=== PATIENT | male | born 1995 | race Caucasian/White ===

== ENCOUNTER 2020-01-18 19:51 | Emergency (ER) | payer OTHER ==
[2020-01-18 20:06] VITALS: TEMP 98
[2020-01-18] MEDS ORDERED: DIPH,PERTUS(ACELL)TETVAC-LF 0.5 ML VIAL IM ONE (20:13)
[2020-01-18] MEDS ORDERED: IBUPROFEN 600 MG TAB PO STA (20:13)
[2020-01-18] MEDS ORDERED: LIDOCAINE 1% INJ 10MG/ML (20 ML MDV) SQ ONE (20:13)
--- NOTE | 2020-01-18 20:16 | ED ---
Wound/Laceration HPI - General Chief Complaint: Wound/Laceration Stated Complaint: [facility] Finger Lac Time Seen by Provider: 01/18/20 20:08 Source: patient Mode of arrival: ambulatory Limitations: no limitations - History of Present Illness Initial Comments: 24-year-old male patient presents to the emergency department today for evaluation of laceration to the left palm. Patient states he was cutting chicken and cut his thumb with a sharp knife around 7:00 this evening. States initially the bleeding was significant but he was able to get back controlled. Denies any numbness or tingling to the finger. He is unsure when his last tetanus vaccine was given. Denies any difficulty with range of motion. Denies any other injuries. Patient denies any headache, neck pain, back pain, chest pain, shortness of breath, dizziness, weakness, abdominal pain, nausea, vomiting, or difficulties with bowel movements or urination. - Related Data Allergies Allergy/AdvReac Type Severity Reaction Status Date / Time No Known Allergies Allergy Verified 01/18/20 20:03 Review of Systems ROS Statement: Those systems with pertinent positive or pertinent negative responses have been documented in the HPI. ROS Other: All systems not noted in ROS Statement are negative. Past Medical History Past Medical History: No Reported History History of Any Multi-Drug Resistant Organisms: None Reported Past Surgical History: No Surgical Hx Reported Past Psychological History: No Psychological Hx Reported Smoking Status: Current some day smoker Past Alcohol Use History: Occasional Past Drug Use History: Marijuana General Exam Limitations: no limitations General appearance: alert, in no apparent distress, other (This is a well- developed, well-nourished adult male patient in no acute distress. Vital signs upon presentation are temperature 98.0F, pulse 99, respirations 16, blood pressure 164/90, pulse ox 95% on room air.) Respiratory exam: Present: normal lung sounds bilaterally. Absent: respiratory distress, wheezes, rales, rhonchi, stridor Cardiovascular Exam: Present: regular rate, normal rhythm, normal heart sounds. Absent: systolic murmur, diastolic murmur, rubs, gallop, clicks Extremities exam: Present: full ROM, normal capillary refill, other (There is 3 cm laceration involving the nail to the distal left thumb. The bleeding is controlled. Skin is otherwise pink, warm, dry. Cap refills less than 3 seconds. Radial pulses 2+ and equal bilaterally.). Absent: tenderness, pedal edema, joint swelling, calf tenderness Neurological exam: Present: alert, oriented X3, CN II-XII intact Psychiatric exam: Present: normal affect, normal mood Skin exam: Present: warm, dry, intact, normal color. Absent: rash Course Vital Signs 01/18/20 01/18/20 20:03 22:02 Temperature 98.0 F Pulse Rate 99 69 Respiratory 16 18 Rate Blood Pressure 164/90 129/88 O2 Sat by Pulse 95 96 Oximetry Procedures - Laceration Laceration #1 Consent Obtained: verbal consent Indication: laceration Site: hand (Left thumb) Size (cm): 2 Description: linear (Involved nail) Depth: simple, single layer Anesthetic Used: lidocaine 1% Anesthesia Technique: nerve block Amount (mls): 6 Pre-repair: irrigated extensively Type of Sutures: nylon Size of Sutures: 5-0 Number of Sutures: 3 Technique: simple, interrupted Patient Tolerated Procedure: well, no complications Medical Decision Making - Medical Decision Making 24 year-old male patient presented to the emergency department today for evaluation of laceration. Patient was at work when he cut his finger with a knife. Physical examination revealed a 2 cm laceration through the nail at the distal tip of the left thumb. Bleeding was controlled. We did update patient's tetanus vaccine. Laceration was repaired as documented. He is instructed to follow-up with his primary care physician or employee health services for further evaluation and 1-2 days. He is instructed to return in 7 days to have the stitches removed. We did discuss wound care and signs or symptoms of infection. Return parameters were discussed in detail. He verbalizes unde rstanding and agrees with this plan. Disposition Clinical Impression: Laceration of left thumb with damage to nail Disposition: HOME SELF-CARE Condition: Good Instructions (If sedation given, give patient instructions): Care For Your Stitches (ED), Laceration (ED) Additional Instructions: Keep wound clean and dry. Watch for signs of infection including but not limited fever redness, drainage, and swelling. Sutures removed in 7 days. Follow-up with her very care provider in one to 2 days. Return to the emergency Department with any new, worsening, or concerning symptoms. Is patient prescribed a controlled substance at d/c from ED?: No Referrals: Katiuska Holley MD [Primary Care Provider] - 1-2 days Time of Disposition: 21:44
[2020-01-18 22:04] VITALS: BP 129/88; PULSE 69; RESP 18
== END 2020-01-18 22:04 | disposition home or self-care (01) ==
LOC: EC 19:51
DX: S61.112A Laceration without foreign body of left thumb with damage to nail, initial encounter (principal); F17.200 Nicotine dependence, unspecified, uncomplicated; Z23 Encounter for immunization; W26.0XXA Contact with knife, initial encounter; Y92.69 Other specified industrial and construction area as the place of occurrence of the external cause; Y99.0 Civilian activity done for income or pay
CPT/HCPCS: 90715; 99282; 12001; 90471; J2001

== ENCOUNTER 2020-09-20 22:49 | Emergency (ER) | payer OTHER ==
[2020-09-20] MEDS ORDERED: SODIUM CHLORIDE 0.9% 1,000 ML IV ONE (23:57)
[2020-09-21 00:32] LABS: Basophils % (A) 1 %; Eosinophils % (A) 0 %; HCT 39.5 % (39.0-53.0); HGB 13.2 gm/dL (13.0-17.5); Lymphocytes # (A) 2.3 k/uL (1.0-4.8); Lymphocytes % (A) 31 %; MCH 25.4 pg (25.0-35.0); MCHC 33.5 g/dL (31.0-37.0); MCV 75.6 fL (80.0-100.0); Mean Platelet Volume 7.6; Microcytosis Slight; Monocytes # (A) 0.6 k/uL (0-1.0); Monocytes % (A) 8 %; Neutrophils # (A) 4.3 k/uL (1.3-7.7); Neutrophils % (A) 59 %; Platelet Count 262 k/uL (150-450); RBC 5.22 m/uL (4.30-5.90); WBC 7.2 k/uL (3.8-10.6)
[2020-09-21 00:33] LABS: Glucose,Whole Blood 97 mg/dL (75-99)
[2020-09-21 00:51] LABS: Albumin 3.8 g/dL (3.5-5.0); Calcium 8.7 mg/dL (8.4-10.2); Magnesium 1.7 mg/dL (1.6-2.3); Potassium 3.7 mmol/L (3.5-5.1); Total Bilirubin 0.4 mg/dL (0.2-1.3); Total Protein 7.4 g/dL (6.3-8.2)
[2020-09-21 01:18] LABS: Appearance,Urine Cloudy (Clear); Bacteria,Urine Many /hpf; Bilirubin,Urine Negative (Negative); Blood,Urine Moderate (Negative); Color,Urine Light Yellow; Glucose,Urine (UA) Negative (Negative); Ketones,Urine Negative (Negative); Leukocyte Esterase,Urine Large (Negative); Nitrite,Urine Negative (Negative); Protein,Urine 1+ (Negative); RBC,Urine 27 /hpf (0-5); Specific Gravity,Urine 1.006 (1.001-1.035); Squamous Epithelial Cell,Urine 1 /hpf (0-4); Urobilinogen,Urine <2.0 mg/dL (<2.0); WBC,Urine >182 /hpf (0-5)
[2020-09-21] MEDS ORDERED: cefTRIAXone IN SWFI 1,000 MG/10 ML SYRINGE IVP STA (01:30)
[2020-09-21] MEDS ORDERED: SODIUM CHLORIDE 0.9% 500 ML 500 ML IV ONE (01:33)
[2020-09-21] MEDS ORDERED: BAMLANIVIMAB (EUA) 700 MG, ETESEVIMAB (EUA) 1,400 MG in SODIUM CHLORIDE 0.9% 50 ML IVPB ONE (02:00)
[2020-09-21] MEDS ORDERED: SODIUM CHLORIDE 0.9% 50 ML IVPB ONE (02:00)
--- NOTE | 2020-09-21 02:15 | ED ---
Recheck HPI - General Source: patient Mode of arrival: ambulatory Limitations: no limitations <Zita Drake - Last Filed: 09/21/20 04:13> <Obi Ayala - Last Filed: 09/22/20 22:12> - General Chief Complaint: Recheck/Abnormal Lab/Rx Stated Complaint: clammy, not feeling well Time Seen by Provider: 09/20/20 23:30 - History of Present Illness Initial Comments: 25 year-old male patient presents to the emergency department female patient presents to the emergency department for evaluation of not feeling well. States that he has been feeling run down. Reports "body heaviness". 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 Feels like he might be dehydrated. States he does have a mild dry cough. Has felt chilled and feverish. No documented temperatures. Denies nausea, vomiting, or diarrhea. Denies any urinary symptoms. Denies any chronic medical conditions. Denies any use of medications. Patient denies any recent rash, shortness of breath, chest pain, abdominal pain, numbness, tingling, dizziness, weakness, hematuria, dysuria, urinary urgency, urinary frequency, headache, visual changes, or any other complaints. (Zita Drake) - Related Data Previous Rx's Medication Instructions Recorded Cephalexin [Keflex] 500 mg PO Q6HR #40 cap 09/21/20 Allergies Allergy/AdvReac Type Severity Reaction Status Date / Time No Known Allergies Allergy Verified 09/20/20 23:10 Review of Systems ROS Other: All systems not noted in ROS Statement are negative. <Zita Drake - Last Filed: 09/21/20 04:13> ROS Other: All systems not noted in ROS Statement are negative. <Obi Ayala - Last Filed: 09/22/20 22:12> ROS Statement: Those systems with pertinent positive or pertinent negative responses have been documented in the HPI. Past Medical History Past Medical History: No Reported History History of Any Multi-Drug Resistant Organisms: None Reported Past Surgical History: No Surgical Hx Reported Past Psychological History: No Psychological Hx Reported Smoking Status: Current some day smoker Past Alcohol Use History: None Reported Past Drug Use History: Marijuana <Zita Drake - Last Filed: 09/21/20 04:13> General Exam Limitations: no limitations General appearance: alert, in no apparent distress, other (Physical well- developed, well-nourished adult male patient in no acute distress. Vital signs upon presentation are temperature 98.9F, pulse 97, respirations 18, blood pressure 147/91, pulse ox 96% on room air.) Eye exam: Present: normal appearance, PERRL, EOMI. Absent: scleral icterus, conjunctival injection, periorbital swelling ENT exam: Present: normal exam, normal oropharynx, mucous membranes moist Respiratory exam: Present: normal lung sounds bilaterally. Absent: respiratory distress, wheezes, rales, rhonchi, stridor Cardiovascular Exam: Present: regular rate, normal rhythm, normal heart sounds. Absent: systolic murmur, diastolic murmur, rubs, gallop, clicks GI/Abdominal exam: Present: soft, normal bowel sounds. Absent: distended, tenderness, guarding, rebound, rigid Neurological exam: Present: alert, oriented X3, CN II-XII intact Psychiatric exam: Present: normal affect, normal mood Skin exam: Present: warm, dry, intact, normal color. Absent: rash <Zita Drake M - Last Filed: 09/21/20 04:13> Course <Zita Drake M - Last Filed: 09/21/20 04:13> Vital Signs 09/20/20 09/21/20 09/21/20 23:10 01:46 02:26 Temperature 98.9 F 98.3 F 98.4 F Pulse Rate 97 81 76 Respiratory 18 20 22 Rate Blood Pressure 147/91 113/70 117/74 O2 Sat by Pulse 96 97 95 Oximetry 09/21/20 09/21/20 09/21/20 02:50 04:43 06:03 Temperature 98.4 F 98.4 F Pulse Rate 86 87 84 Respiratory 22 20 22 Rate Blood Pressure 110/74 123/72 120/72 O2 Sat by Pulse 95 94 L 94 L Oximetry - Reevaluation(s) Reevaluation #1: 09/21/20 02:11 Labs came back showed positive COVID-19. Also discussed urine results with him. States he is not sexually active and denies concern for sexually transmitted infections. He states that he has had some unusual bilateral flank pain over the last week or so. Will add CT scan to rule out kidney stone. (Zita Drake) Medical Decision Making - Lab Data Result diagrams: 09/21/20 00:23 09/21/20 00:23 - EKG Data -: EKG Interpreted by Me - Radiology Data Radiology results: report reviewed, image reviewed <Zita Drake - Last Filed: 09/21/20 04:13> - Lab Data Result diagrams: 09/21/20 00:23 09/21/20 00:23 <Obi Ayala - Last Filed: 09/22/20 22:12> - Medical Decision Making 25 year-old male patient presents to the emergency department for evaluation of not feeling well, weakness, and sweats. Physical exam was unremarkable. Neuro exam normal. Vitals unremarkable. Labs reviewed, revealed elevated creatinine. Urinalysis showed elevated red and white cells as well as many bacteria. He did report some bilateral flank pain over the last week, CT was obtained to rule out kidney stone or other etiology. Showed evidence for distended bladder and hydroureteronephrosis. We did perform post void residual which showed around 978ml in the bladder. We will place barker catheter. He also tested positive for COVID. It is possible that cystitis could be due to COVID-19 infection, however with presence of bacteria we will give antibiotics. We did give bamlanivimab infusion. One dose of IV rocephin. He will be discharged to follow up with primary care physician as well as urology. Return parameters are discussed in detail. He verbalizes understanding and agrees with this plan. Case discussed with my attending Dr. Ayala. (Zita Drake) - Lab Data Lab Results 09/21/20 09/21/20 09/21/20 Range/Units 00:23 00:23 00:23 WBC 7.2 (3.8-10.6) k/uL RBC 5.22 (4.30-5.90) m/uL Hgb 13.2 (13.0-17.5) gm/dL Hct 39.5 (39.0-53.0) % MCV 75.6 L (80.0-100.0) fL MCH 25.4 (25.0-35.0) pg MCHC 33.5 (31.0-37.0) g/dL RDW 15.0 (11.5-15.5) % Plt Count 262 (150-450) k/uL MPV 7.6 Neutrophils % 59 % Lymphocytes % 31 % Monocytes % 8 % Eosinophils % 0 % Basophils % 1 % Neutrophils # 4.3 (1.3-7.7) k/uL Lymphocytes # 2.3 (1.0-4.8) k/uL Monocytes # 0.6 (0-1.0) k/uL Eosinophils # 0.0 (0-0.7) k/uL Basophils # 0.0 (0-0.2) k/uL Microcytosis Slight Sodium 138 (137-145) mmol/L Potassium 3.7 (3.5-5.1) mmol/L Chloride 102 (98-107) mmol/L Carbon Dioxide 29 (22-30) mmol/L Anion Gap 7 mmol/L BUN 20 (9-20) mg/dL Creatinine 1.56 H (0.66-1.25) mg/dL Est GFR (CKD-EPI)AfAm 70 (>60 ml/min/1.73 sqM) Est GFR (CKD-EPI)NonAf 60 (>60 ml/min/1.73 sqM) Glucose 95 (74-99) mg/dL POC Glucose (mg/dL) (75-99) mg/dL POC Glu Pool Technician ID Calcium 8.7 (8.4-10.2) mg/dL Magnesium 1.7 (1.6-2.3) mg/dL Total Bilirubin 0.4 (0.2-1.3) mg/dL AST 93 H (17-59) U/L ALT 64 H (4-49) U/L Alkaline Phosphatase 75 (38-126) U/L Total Protein 7.4 (6.3-8.2) g/dL Albumin 3.8 (3.5-5.0) g/dL Urine Color Light Yellow Urine Appearance Cloudy (Clear) Urine pH 6.0 (5.0-8.0) Ur Specific Padroni 1.006 (1.001-1.035) Urine Protein 1+ H (Negative) Urine Glucose (UA) Negative (Negative) Urine Ketones Negative (Negative) Urine Blood Moderate H (Negative) Urine Nitrite Negative (Negative) Urine Bilirubin Negative (Negative) Urine Urobilinogen <2.0 (<2.0) mg/dL Ur Leukocyte Esterase Large H (Negative) Urine RBC 27 H (0-5) /hpf Urine WBC >182 H (0-5) /hpf Urine WBC Clumps Many H (None) /hpf Ur Squamous Epith Cells 1 (0-4) /hpf Urine Bacteria Many H (None) /hpf Coronavirus (PCR) (Not Detectd) 09/21/20 09/21/20 Range/Units 00:23 00:32 WBC (3.8-10.6) k/uL RBC (4.30-5.90) m/uL Hgb (13.0-17.5) gm/dL Hct (39.0-53.0) % MCV (80.0-100.0) fL MCH (25.0-35.0) pg MCHC (31.0-37.0) g/dL RDW (11.5-15.5) % Plt Count (150-450) k/uL MPV Neutrophils % % Lymphocytes % % Monocytes % % Eosinophils % % Basophils % % Neutrophils # (1.3-7.7) k/uL Lymphocytes # (1.0-4.8) k/uL Monocytes # (0-1.0) k/uL Eosinophils # (0-0.7) k/uL Basophils # (0-0.2) k/uL Microcytosis Sodium (137-145) mmol/L Potassium (3.5-5.1) mmol/L Chloride (98-107) mmol/L Carbon Dioxide (22-30) mmol/L Anion Gap mmol/L BUN (9-20) mg/dL Creatinine (0.66-1.25) mg/dL Est GFR (CKD-EPI)AfAm (>60 ml/min/1.73 sqM) Est GFR (CKD-EPI)NonAf (>60 ml/min/1.73 sqM) Glucose (74-99) mg/dL POC Glucose (mg/dL) 97 (75-99) mg/dL POC Glu Pool Technician ID Ortiz, Siria Calcium (8.4-10.2) mg/dL Magnesium (1.6-2.3) mg/dL Total Bilirubin (0.2-1.3) mg/dL AST (17-59) U/L ALT (4-49) U/L Alkaline Phosphatase (38-126) U/L Total Protein (6.3-8.2) g/dL Albumin (3.5-5.0) g/dL Urine Color Urine Appearance (Clear) Urine pH (5.0-8.0) Ur Specific Padroni (1.001-1.035) Urine Protein (Negative) Urine Glucose (UA) (Negative) Urine Ketones (Negative) Urine Blood (Negative) Urine Nitrite (Negative) Urine Bilirubin (Negative) Urine Urobilinogen (<2.0) mg/dL Ur Leukocyte Esterase (Negative) Urine RBC (0-5) /hpf Urine WBC (0-5) /hpf Urine WBC Clumps (None) /hpf Ur Squamous Epith Cells (0-4) /hpf Urine Bacteria (None) /hpf Coronavirus (PCR) Detected A (Not Detectd) - EKG Data EKG Comments: EKG obtained at 2357 shows normal sinus rhythm with a ventricular rate of 88, AK interval 132, QRS duration 102, QT 356, QTc 4:30. No evidence of ST elevation or depression (Zita Drake) - Radiology Data CT abdomen and pelvis without contrast was obtained. Report was reviewed in its entirety. Impression by Dr. Lombardo shows moderate bilateral hydroureteronephrosis to the level of the urinary bladder. Findings are likely secondary to distended urinary bladder. No obstructing lesion identified. (Zita Drake) Disposition Is patient prescribed a controlled substance at d/c from ED?: No Time of Disposition: 04:08 <Zita Drake - Last Filed: 09/21/20 04:13> <Obi Ayala - Last Filed: 09/22/20 22:12> Clinical Impression: Hydronephrosis, COVID-19, UTI (urinary tract infection), Urinary retention Narrative: COVID-19 cystitis (Zita Drake) Disposition: HOME SELF-CARE Condition: Good Instructions (If sedation given, give patient instructions): Coronavirus Disease 2019 (COVID-19), Urinary Retention in Men (ED), Urinary Tract Infection in Men (ED), Hydronephrosis (ED) Additional Instructions: Increase fluids. Follow up with the urologist for further evaluation as soon as possible. Complete antibiotic prescription in full. Return for any new, worsening, or concerning symptoms. Prescriptions: Cephalexin [Keflex] 500 mg PO Q6HR #40 cap Referrals: Leydi,Katiuska, MD [Primary Care Provider] - 1-2 days Marcus Milian MD [STAFF PHYSICIAN] - 1-2 days
[2020-09-21 02:28] VITALS: TEMP 98.4
--- NOTE | 2020-09-21 02:49 | CT ---
EXAM: CT Abdomen and Pelvis Without Intravenous Contrast CLINICAL HISTORY: flank pain; UTI; R/o Kidney stone TECHNIQUE: Axial computed tomography images of the abdomen and pelvis without intravenous contrast. CTDI is 42.684 mGy and DLP is 2713 mGy-cm. This CT exam was performed using one or more of the following dose reduction techniques: automated exposure control, adjustment of the mA and/or kV according to patient size, and/or use of iterative reconstruction technique. COMPARISON: No relevant prior studies available. FINDINGS: Lung bases: 3 mm pulmonary nodule within the right lower lobe. ABDOMEN: Liver: Hepatic steatosis. Gallbladder and bile ducts: Gallbladder is contracted. Pancreas: Unremarkable. Spleen: Unremarkable. Adrenals: Unremarkable. Kidneys and ureters: Moderate bilateral hydroureteronephrosis to the level of the urinary bladder. Please are likely secondary to distended urinary bladder. No obstructing lesion identified. Stomach and bowel: Unremarkable. PELVIS: Appendix: Appendix is unremarkable. Bladder: Unremarkable. Reproductive: Unremarkable as visualized. ABDOMEN and PELVIS: Intraperitoneal space: Unremarkable. Bones/joints: No acute fracture. No dislocation. Soft tissues: Moderate sized fat-containing umbilical hernia. Vasculature: Unremarkable. Lymph nodes: Unremarkable. IMPRESSION: Moderate bilateral hydroureteronephrosis to the level of the urinary bladder. Please are likely secondary to distended urinary bladder. No obstructing lesion identified.
[2020-09-21 06:12] VITALS: BP 120/72; PULSE 84; RESP 22
== END 2020-09-21 06:12 | disposition home or self-care (01) ==
LOC: EC 22:49
DX: U07.1 COVID-19 (principal); N13.39 Other hydronephrosis; N39.0 Urinary tract infection, site not specified; R33.9 Retention of urine, unspecified
CPT/HCPCS: 51798; 36415; 93005; 80053; 83735; 85025; 81001; 87086; 87635; 74176; 99284; 96374; 96361 ×3; J0696; Q0245

== ENCOUNTER 2020-09-27 14:29 | Emergency (ER) | payer OTHER ==
[2020-09-27 14:34] VITALS: BP 139/98; PULSE 103; RESP 18; TEMP 98
--- NOTE | 2020-09-27 15:12 | ED ---
Male Urogenital HPI - General Chief complaint: Urogenital Stated complaint: Barker Removal Time Seen by Provider: 09/27/20 14:44 Source: family Mode of arrival: ambulatory Limitations: no limitations - History of Present Illness Initial comments: Allan is a 25-year-old male who presents to the emergency department today via private vehicle requesting that his Barker catheter be removed. Patient was seen and evaluated 6 days ago at which time he has been have COVID-19 as well as a urinary tract infection with urinary retention. Barker catheter was placed at that time. Patient has contacted the urology office for outpatient follow-up in cannot be seen until October 12. Patient states that today he wants his Barker catheter out. Patient states that he did have some hematuria on the first day of the Barker catheter but took his antibiotics his urine has cleared up he's had no discomfort. - Related Data Previous Rx's Medication Instructions Recorded Cephalexin [Keflex] 500 mg PO Q6HR #40 cap 09/21/20 Allergies Allergy/AdvReac Type Severity Reaction Status Date / Time No Known Allergies Allergy Verified 09/27/20 14:34 Review of Systems ROS Statement: Those systems with pertinent positive or pertinent negative responses have been documented in the HPI. ROS Other: All systems not noted in ROS Statement are negative. Past Medical History Past Medical History: No Reported History History of Any Multi-Drug Resistant Organisms: None Reported Past Surgical History: No Surgical Hx Reported Past Psychological History: No Psychological Hx Reported Smoking Status: Current some day smoker Past Alcohol Use History: None Reported Past Drug Use History: Marijuana General Exam - General Exam Comments Initial Comments: Physical Exam GENERAL: Patient is well-developed and well-nourished. Patient is nontoxic and well-hydrated and is in no distress. BMI 39 HENT: Normocephalic, Atraumatic. EYES: PERRL, EOMI PULMONARY: Unlabored respirations. CARDIOVASCULAR: No active bleeding ABDOMEN: Non-distended SKIN: No rashes or bruising : Barker catheter in place draining clear yellow urine NEUROLOGIC: Alert and oriented Normal speech Normal gait MUSCULOSKELETAL: Moving all extremities with no apparent injury PSYCHIATRIC: No SI/HI Limitations: no limitations Course Vital Signs 09/27/20 14:32 Temperature 98.0 F Pulse Rate 103 H Respiratory 18 Rate Blood Pressure 139/98 O2 Sat by Pulse 97 Oximetry Medical Decision Making - Medical Decision Making Patient was seen and evaluated patient requesting that his Barker catheter be removed, states that his urine has cleared up she doesn't have any discomfort doesn't believe he still has urinary tract infection Advised patient we will remove Barker catheter, if he has any retention later in the day he is to return to the ER for replacement of Barker catheter, patient expressed understanding and is agreement with this plan Disposition Clinical Impression: Barker catheter problem Disposition: HOME SELF-CARE Condition: Stable Additional Instructions: If you cannot urinate later today, return to the ER for replacement of your barker catheter Is patient prescribed a controlled substance at d/c from ED?: No Referrals: Katiuska Holley MD [Primary Care Provider] - 1-2 days
== END 2020-09-27 15:29 | disposition home or self-care (01) ==
LOC: EC 14:29
DX: T83.9XXA Unspecified complication of genitourinary prosthetic device, implant and graft, initial encounter (principal); Z46.6 Encounter for fitting and adjustment of urinary device; F17.200 Nicotine dependence, unspecified, uncomplicated
CPT/HCPCS: 99282

== ENCOUNTER 2023-05-14 21:09 | Emergency (ER) | payer BC, OTHER ==
--- NOTE | 2023-05-14 21:51 | ED ---
Dizziness HPI - General Source: EMS Mode of arrival: EMS Limitations: no limitations <Gamal Wilkes - Last Filed: 05/14/23 21:52> - History of Present Illness MD Complaint: lightheadedness, near syncope Onset/Timin -: hour(s) Timing: sudden onset Description: lightheadedness, nausea Improves With: other (Diagnostic down) Worsens With: nothing Associated Symptoms: denies other symptoms <Ovidio Joseph - Last Filed: 05/26/23 06:33> - General Chief Complaint: Syncope Stated Complaint: Near syncope Time Seen by Provider: 05/14/23 21:49 - History of Present Illness Initial Comments: 28-year-old male presenting to the ED with a chief complaint of near syncope. He states that he was in the kitchen today making dinner when he all of a sudden felt as if he was going to pass out. There was some associated nausea with this as well. States that he was able to guide himself to the ground. No injuries at this time. As of now, patient states symptoms are resolved. There was no chest pain or shortness of breath. (Gamal Wilkes) - Related Data Previous Rx's Medication Instructions Recorded Cephalexin [Keflex] 500 mg PO Q6HR #40 cap 09/21/20 Allergies Allergy/AdvReac Type Severity Reaction Status Date / Time No Known Allergies Allergy Verified 05/14/23 21:46 Review of Systems ROS Other: All systems not noted in ROS Statement are negative. <Gamal Wilkes - Last Filed: 05/14/23 21:52> ROS Other: All systems not noted in ROS Statement are negative. Constitutional: Denies: fever, chills Eyes: Denies: vision change Respiratory: Denies: cough, dyspnea Cardiovascular: Reports: syncope (Near syncope). Denies: chest pain, palpitations, edema Gastrointestinal: Reports: nausea. Denies: abdominal pain, vomiting, diarrhea, constipation Genitourinary: Denies: dysuria, hematuria Musculoskeletal: Denies: back pain Skin: Denies: rash Neurological: Denies: headache <Ovidio Joseph - Last Filed: 05/26/23 06:33> ROS Statement: Those systems with pertinent positive or pertinent negative responses have been documented in the HPI. Past Medical History Past Medical History: No Reported History History of Any Multi-Drug Resistant Organisms: None Reported Past Surgical History: No Surgical Hx Reported Past Psychological History: No Psychological Hx Reported Smoking Status: Never smoker Past Alcohol Use History: None Reported Past Drug Use History: Marijuana <Gamal Wilkes - Last Filed: 05/14/23 21:52> General Exam Limitations: no limitations <Gamal Wilkes - Last Filed: 05/14/23 21:52> Limitations: no limitations General appearance: alert, in no apparent distress Head exam: Present: atraumatic, normocephalic Eye exam: Present: normal appearance, PERRL, EOMI. Absent: scleral icterus, conjunctival injection, nystagmus ENT exam: Present: normal oropharynx Neck exam: Present: normal inspection Respiratory exam: Present: normal lung sounds bilaterally. Absent: respiratory distress, wheezes, rales, rhonchi, stridor Cardiovascular Exam: Present: regular rate, normal rhythm, normal heart sounds. Absent: systolic murmur, diastolic murmur, rubs, gallop GI/Abdominal exam: Present: soft. Absent: distended, tenderness, guarding, rebound, rigid, mass Extremities exam: Present: normal inspection, normal capillary refill. Absent: pedal edema, calf tenderness Back exam: Present: normal inspection. Absent: CVA tenderness (R), CVA tenderness (L) Neurological exam: Present: alert Skin exam: Present: warm, dry, intact, normal color. Absent: rash <Ovidio Joseph - Last Filed: 05/26/23 06:33> - General Exam Comments Initial Comments: Visual Physical Exam Vital signs reviewed General: Well-appearing, nontoxic, no acute distress. Head: Normocephalic, atraumatic Eyes: PERRLA, EOMI ENT: Airway patent Chest: Nonlabored breathing Skin: No visual rash, normal skin tone Neuro: Alert and oriented 3 Musculoskeletal: No gross abnormalities (Gamal Wilkes) Course Vital Signs 05/14/23 05/14/23 21:45 23:41 Temperature 98.2 F Pulse Rate 65 61 Respiratory 18 18 Rate Blood Pressure 116/74 118/91 O2 Sat by Pulse 96 100 Oximetry EKG Findings - EKG Results: EKG: interpreted by ERMD, sinus rhythm (Rate 67 bpm), normal axis, normal QRS - Blocks, [place], Hypertrophy, ST Abn: Repolarization changes or abnormalities: nonspecific abnormality, ST segment, and/or T wave <OpalOvidio - Last Filed: 05/26/23 06:33> Medical Decision Making <Gamal Wilkes - Last Filed: 05/14/23 21:52> - Lab Data Result diagrams: 05/14/23 21:53 05/14/23 21:53 <OpalOvidio - Last Filed: 05/26/23 06:33> - Medical Decision Making Quicknote portion performed. Signed Gamal Wilkes PA-C (Gamal Wilkes) The patient had chest x-ray which I interpreted as negative for acute infil trate, pneumothorax, congestive heart failure Was pt. sent in by a medical professional or institution ([facility], [facility], urgent care, hospital, or long term...) When possible be specific @ -[No] Did you speak to anyone other than the patient for history (EMS, parent, family, police, friend...)? What history was obtained from this source @ -[No] Did you review nursing and triage notes (agree or disagree)? Why? @ -[I reviewed and agree with nursing and triage notes] Were old charts reviewed (outside hosp., previous admission, EMS record, old EKG, old radiological studies, urgent care reports/EKG's, long term records)? Report findings @ -[No old charts were reviewed] Differential Diagnosis (chest pain, altered mental status, abdominal pain women, abdominal pain men, vaginal bleeding, weakness, fever, dyspnea, syncope, headache, dizziness, GI bleed, back pain, seizure, CVA, palpatations, mental health, musculoskeletal)? @ -[Differential Syncope: Valvular disease, hypertrophic cardiomyopathy, pulmonary embolism, tamponade, tachycardia, bradycardia, HI, hypovolemia, hemorrhage, dissection, anemia, intracranial hemorrhage, seizure, hypoglycemia, carbon monoxide poisoning, this is not meant to be an all-inclusive list. EKG interpreted by me (3pts min.). @ -[I interpreted As above] X-rays interpreted by me (1pt min.). @ -[I interpreted as above CT interpreted by me (1pt min.). @ -[None done] U/S interpreted by me (1pt. min.). @ -[None done] What testing was considered but not performed or refused? (CT, X-rays, U/S, labs)? Why? @ -[None] What meds were considered but not given or refused? Why? @ -[None] Did you discuss the management of the patient with other professionals (professionals i.e. , PA, [facility], lab, RT, psych nurse, manager social media, sorter upholstery parts, teacher, chief security and safety officer, nurse case management)? Give summary @ -[No] Was smoking cessation discussed for >3mins.? @ -[No] Was critical care preformed (if so, how long)? @ -[No] Were there social determinants of health that impacted care today? How? (Homelessness, low income, unemployed, alcoholism, drug addiction, transportation, low edu. Level, literacy, decrease access to med. care, senior care, rehab)? @ -[No] Was there de-escalation of care discussed even if they declined (Discuss DNR or withdrawal of care, Hospice)? DNR status @ -[No] What co-morbidities impacted this encounter? (DM, HTN, Smoking, COPD, CAD, Cancer, CVA, ARF, Chemo, Hep., AIDS, mental health diagnosis, sleep apnea, morbid obesity)? @ -[None] Was patient admitted / discharged? Hospital course, mention meds given and route, prescriptions, significant lab abnormalities, going to OR and other pertinent info. @ -[Patient is 28-year-old man with near syncopal episode. The physical exam and workup are essentially normal. The patient is feeling well here. We discussed appropriate further care and return parameters Undiagnosed new problem with uncertain prognosis? @ -[No] Drug Therapy requiring intensive monitoring for toxicity (Heparin, Nitro, Insulin, Cardizem)? @ -[No] Were any procedures done? @ -[No] Diagnosis/symptom? @ -[Acute near syncopal episode Acute, or Chronic, or Acute on Chronic? @ -[Acute Uncomplicated (without systemic symptoms) or Complicated (systemic symptoms)? @ -[Uncomplicated Side effects of treatment? @ -[No] Exacerbation, Progression, or Severe Exacerbation? @ -[No] Poses a threat to life or bodily function? How? (Chest pain, USA, HI, pneumonia, PE, COPD, DKA, ARF, appy, cholecystitis, CVA, Diverticulitis, Homicidal, Suicidal, threat to staff... and all critical care pts) @ -[No] (Ovidio Joseph) - Lab Data Lab Results 05/14/23 05/14/23 05/14/23 Range/Units 21:53 21:53 21:53 WBC 10.2 (3.8-10.6) k/uL RBC 5.73 (4.30-5.90) m/uL Hgb 15.7 (13.0-17.5) gm/dL Hct 47.4 (39.0-53.0) % MCV 82.8 (80.0-100.0) fL MCH 27.4 (25.0-35.0) pg MCHC 33.1 (31.0-37.0) g/dL RDW 14.2 (11.5-15.5) % Plt Count 308 (150-450) k/uL MPV 7.8 Neutrophils % 72 % Lymphocytes % 21 % Monocytes % 5 % Eosinophils % 1 % Basophils % 1 % Neutrophils # 7.4 (1.3-7.7) k/uL Lymphocytes # 2.1 (1.0-4.8) k/uL Monocytes # 0.5 (0-1.0) k/uL Eosinophils # 0.1 (0-0.7) k/uL Basophils # 0.1 (0-0.2) k/uL PT 10.9 (10.0-12.5) sec INR 1.0 (<1.2) APTT 28.3 (22.0-30.0) sec Sodium 145 (137-145) mmol/L Potassium 3.8 (3.5-5.1) mmol/L Chloride 106 (98-107) mmol/L Carbon Dioxide 25 (22-30) mmol/L Anion Gap 14 mmol/L BUN 15 (9-20) mg/dL Creatinine 1.42 H (0.66-1.25) mg/dL Est GFR (CKD-EPI)AfAm 77 (>60 ml/min/1.73 sqM) Est GFR (CKD-EPI)NonAf 66 (>60 ml/min/1.73 sqM) Glucose 121 H (74-99) mg/dL Calcium 9.8 (8.4-10.2) mg/dL Total Bilirubin 0.7 (0.2-1.3) mg/dL AST 34 (17-59) U/L ALT 26 (4-49) U/L Alkaline Phosphatase 81 (38-126) U/L Troponin I (0.000-0.034) ng/mL Total Protein 8.1 (6.3-8.2) g/dL Albumin 4.4 (3.5-5.0) g/dL Influenza Type A (PCR) (Not Detectd) Influenza Type B (PCR) (Not Detectd) RSV (PCR) (Not Detectd) SARS-CoV-2 (PCR) (Not Detectd) 05/14/23 05/14/23 Range/Units 21:53 21:53 WBC (3.8-10.6) k/uL RBC (4.30-5.90) m/uL Hgb (13.0-17.5) gm/dL Hct (39.0-53.0) % MCV (80.0-100.0) fL MCH (25.0-35.0) pg MCHC (31.0-37.0) g/dL RDW (11.5-15.5) % Plt Count (150-450) k/uL MPV Neutrophils % % Lymphocytes % % Monocytes % % Eosinophils % % Basophils % % Neutrophils # (1.3-7.7) k/uL Lymphocytes # (1.0-4.8) k/uL Monocytes # (0-1.0) k/uL Eosinophils # (0-0.7) k/uL Basophils # (0-0.2) k/uL PT (10.0-12.5) sec INR (<1.2) APTT (22.0-30.0) sec Sodium (137-145) mmol/L Potassium (3.5-5.1) mmol/L Chloride (98-107) mmol/L Carbon Dioxide (22-30) mmol/L Anion Gap mmol/L BUN (9-20) mg/dL Creatinine (0.66-1.25) mg/dL Est GFR (CKD-EPI)AfAm (>60 ml/min/1.73 sqM) Est GFR (CKD-EPI)NonAf (>60 ml/min/1.73 sqM) Glucose (74-99) mg/dL Calcium (8.4-10.2) mg/dL Total Bilirubin (0.2-1.3) mg/dL AST (17-59) U/L ALT (4-49) U/L Alkaline Phosphatase (38-126) U/L Troponin I <0.012 (0.000-0.034) ng/mL Total Protein (6.3-8.2) g/dL Albumin (3.5-5.0) g/dL Influenza Type A (PCR) Not Detected (Not Detectd) Influenza Type B (PCR) Not Detected (Not Detectd) RSV (PCR) Not Detected (Not Detectd) SARS-CoV-2 (PCR) Not Detected (Not Detectd) Disposition <Gamal Wilkes - Last Filed: 05/14/23 21:52> Is patient prescribed a controlled substance at d/c from ED?: No <Ovidio Joseph - Last Filed: 05/26/23 06:33> Clinical Impression: Vasovagal near syncope Disposition: HOME SELF-CARE Condition: Good Instructions (If sedation given, give patient instructions): Near Syncope (ED) Referrals: Katiuska Holley MD [Primary Care Provider] - 1-2 days
[2023-05-14 22:00] LABS: Basophils # (A) 0.1 k/uL (0-0.2); Basophils % (A) 1 %; Eosinophils # (A) 0.1 k/uL (0-0.7); Eosinophils % (A) 1 %; HCT 47.4 % (39.0-53.0); HGB 15.7 gm/dL (13.0-17.5); Lymphocytes # (A) 2.1 k/uL (1.0-4.8); Lymphocytes % (A) 21 %; MCH 27.4 pg (25.0-35.0); MCHC 33.1 g/dL (31.0-37.0); MCV 82.8 fL (80.0-100.0); Mean Platelet Volume 7.8; Monocytes # (A) 0.5 k/uL (0-1.0); Monocytes % (A) 5 %; Neutrophils # (A) 7.4 k/uL (1.3-7.7); Neutrophils % (A) 72 %; Platelet Count 308 k/uL (150-450); RBC 5.73 m/uL (4.30-5.90); RDW 14.2 % (11.5-15.5); WBC 10.2 k/uL (3.8-10.6)
[2023-05-14 22:02] VITALS: RESP 18; TEMP 98.2
[2023-05-14 22:11] LABS: Partial Thromboplastin Time 28.3 sec (22.0-30.0); Prothrombin Time 10.9 sec (10.0-12.5)
[2023-05-14 22:17] LABS: ALT 26 U/L (4-49); AST 34 U/L (17-59); African American GFR (CKD) 77 (>60 ml/min/1.73 sqM); Albumin 4.4 g/dL (3.5-5.0); Alkaline Phosphatase 81 U/L (38-126); Anion Gap 14 mmol/L; Blood Urea Nitrogen 15 mg/dL (9-20); Calcium 9.8 mg/dL (8.4-10.2); Carbon Dioxide 25 mmol/L (22-30); Chloride 106 mmol/L (98-107); Glucose 121 mg/dL (74-99); Non-African American GFR(CKD) 66 (>60 ml/min/1.73 sqM); Potassium 3.8 mmol/L (3.5-5.1); Sodium 145 mmol/L (137-145); Total Bilirubin 0.7 mg/dL (0.2-1.3); Total Protein 8.1 g/dL (6.3-8.2)
--- NOTE | 2023-05-14 22:26 | XR ---
EXAM: XR Chest, 2 Views CLINICAL HISTORY: ITS.REASON XR Reason: syncope TECHNIQUE: Frontal and lateral views of the chest. COMPARISON: No relevant prior studies available. FINDINGS: Lungs: Unremarkable. No consolidation. Pleural space: Unremarkable. No pneumothorax. Heart: Unremarkable. No cardiomegaly. Mediastinum: Unremarkable. Normal mediastinal contour. Bones/joints: Unremarkable. No acute fracture. IMPRESSION: Normal chest x-rays.
[2023-05-15 00:12] VITALS: BP 118/91; PULSE 61
== END 2023-05-15 00:25 | disposition home or self-care (01) ==
LOC: EC 21:09
DX: R55 Syncope and collapse (principal); F12.90 Cannabis use, unspecified, uncomplicated; Z20.822 Contact with and (suspected) exposure to COVID-19
CPT/HCPCS: 36415; 71046; 80053; 84484; 85025; 85610; 85730; 87636; 93005; 99285

== ENCOUNTER 2023-06-04 12:50 | Inpatient (IN) | payer BC ==
--- NOTE | 2023-06-04 13:41 | ED ---
General Adult HPI - General Chief complaint: Abdominal Pain Stated complaint: abd pain, Time Seen by Provider: 06/04/23 13:30 Source: patient Mode of arrival: ambulatory Limitations: no limitations - History of Present Illness Initial comments: Dictation was produced using Earnest dictation software. please excuse any grammatical, word or spelling errors. Chief Complaint: 28-year-old male presents to the emergency department with fever and abdominal pain History of Present Illness: Patient is a 28-year-old male he has no known comorbidities he does not follow-up with a primary care doctor. States that he has months of this umbilical hernia. Over the last 3 days she has had worsening pain in his abdomen. States that his hernia at his umbilical site is painful. He does complain of fevers. States that his pain really was worse today prompti ng him to come to the ER. Patient having normal bowel movements. He does complain of fever. The ROS documented in this emergency department record has been reviewed and confirmed by me. Those systems with pertinent positive or negative responses have been documented in the HPI. All other systems are other negative and/or noncontributory. - Related Data Home Medications Medication Instructions Recorded Confirmed No Known Home Medications 06/04/23 06/04/23 Allergies Allergy/AdvReac Type Severity Reaction Status Date / Time No Known Allergies Allergy Verified 06/04/23 15:29 Review of Systems ROS Statement: Those systems with pertinent positive or pertinent negative responses have been documented in the HPI. ROS Other: All systems not noted in ROS Statement are negative. Past Medical History Past Medical History: No Reported History History of Any Multi-Drug Resistant Organisms: None Reported Past Surgical History: No Surgical Hx Reported Past Psychological History: No Psychological Hx Reported Smoking Status: Never smoker Past Alcohol Use History: None Reported Past Drug Use History: Marijuana General Exam - General Exam Comments Initial Comments: PHYSICAL EXAM: General Impression: Alert and oriented x3, not in acute distress HEENT: Normocephalic atraumatic, extra-ocular movements intact, pupils equal and reactive to light bilaterally, mucous membranes moist. Cardiovascular: Heart regular rate and rhythm Chest: Able to complete full sentences, no retractions, no tachypnea Abdomen: abdomen soft, tenderness to the umbilical area, there does appear to be an incarcerated umbilical hernia slight redness to the overlying skin, non- distended, no organomegaly Musculoskeletal: Pulses present and equal in all extremities, no peripheral edema Motor: no focal deficits noted Neurological: CN II-XII grossly intact, no focal motor or sensory deficits noted Skin: Intact with no visualized rashes Psych: Normal affect and mood Limitations: no limitations Course Vital Signs 06/04/23 13:25 Temperature 100.7 F H Pulse Rate 107 H Respiratory 20 Rate Blood Pressure 134/75 O2 Sat by Pulse 94 L Oximetry Procedures - Sepsis Sepsis Focused Exam #1 Time Sepsis Criteria Met: : Sepsis Focused Exam Date: 06/04/23 Sepsis Focused Exam Time: Sepsis Focused Exam Complete: Yes Vital Signs & RN Notes Reviewed: Yes Capillary Refill: < 2 Seconds: Fingers, Toes Peripheral Pulses: Normal: Radial (R), Radial (L), Posterior Tibialis (R), Posterior Tibialis (L), Dorsalis Pedis (R), Dorsalis Pedis (L) Skin Color: Normal for Patient Respiratory Exam: normal lung sounds Cardiovascular Exam: tachycardia Medical Decision Making - Medical Decision Making Was pt. sent in by a medical professional or institution (Dr. PA, [facility], urgent care, hospital, or skilled nursing...) When possible be specific @ -No Did you speak to anyone other than the patient for history (EMS, parent, family, police, friend...)? What history was obtained from this source @ -No Did you review nursing and triage notes (agree or disagree)? Why? @ -I reviewed and agree with nursing and triage notes Were old charts reviewed (outside hosp., previous admission, EMS record, old EKG, old radiological studies, urgent care reports/EKG's, skilled nursing records)? Report findings @ -No old charts were reviewed Differential Diagnosis (chest pain, altered mental status, abdominal pain women, abdominal pain men, vaginal bleeding, musculoskeletal, weakness, fever, dyspnea, syncope, headache, dizziness, GI bleed, back pain, seizure, CVA, palpatations, mental health)? @ -Differential Abdominal Pain Men: Appendicitis, cholecystitis, diverticulosis, ischemic bowel, pancreatitis, hepatitis, UTI, gastroenteritis, AAA, incarcerated hernia, bowel obstruction, constipation, inflammatory bowel, hepatitis, peptic ulcer disease, splenic infarction, perforated viscus, testicular torsion, this is not meant to be an all-inclusive list EKG interpreted by me (3pts min.). @ -None done X-rays interpreted by me (1pt min.). @ -None done CT interpreted by me (1pt min.). @ -CT scan of the abdomen and pelvis shows small bowel obstruction with multiple points of inflammation along with hydroureter and hydronephrosis of unclear etiology. Bladder wall is thickened. U/S interpreted by me (1pt. min.). @ -None done What testing was considered but not performed or refused? (CT, X-rays, U/S, labs)? Why? @ -None What meds were considered but not given or refused? Why? @ -None Did you discuss the management of the patient with other professionals (professionals i.e. Dr., PA, [facility], lab, RT, psych nurse, rn social work, tool design engineer, teacher, corporate responsibility officer, manager case)? Give summary @ -Case discussed with Dr. Aj who reviewed the films and is willing to except patient's care for admission. Case also discussed with urology who will be willing to consult on the patient. Was smoking cessation discussed for >3mins.? @ -No Was critical care preformed (if so, how long)? @ -No Were there social determinants of health that impacted care today? How? (Homelessness, low income, unemployed, alcoholism, drug addiction, transpor tation, low edu. Level, literacy, decrease access to med. care, prison, rehab)? @ -No Was there de-escalation of care discussed even if they declined (Discuss DNR or withdrawal of care, Hospice)? DNR status @ -No What co-morbidities impacted this encounter? (DM, HTN, Smoking, COPD, CAD, Cancer, CVA, ARF, Chemo, Hep., AIDS, mental health diagnosis, sleep apnea, morbid obesity)? @ -None Was patient admitted / discharged? Hospital course, mention meds given and route, prescriptions, significant lab abnormalities, going to OR and other pertinent info. @ -28-year-old male presents to the emergency department with abdominal pain and fever. He has symptoms in his lower abdomen. There is concern of acute appendicitis versus diverticulitis versus incarcerated hernia. Patient is febrile at 100.7. Leukocytosis of 16.5. Rest of labs within acceptable limits. Pending CT abdomen pelvis. CT scan of the abdomen and pelvis read by radiology along with being reviewed by myself showing small bowel obstruction with umbilical hernia. There is also hydroureter and hydronephrosis of unclear etiol ogy. Patient started on antibiotics. Patient will be admitted for further care. Clinical presentation suspicious for sepsis. Undiagnosed new problem with uncertain prognosis? @ -No Drug Therapy requiring intensive monitoring for toxicity (Heparin, Nitro, Insulin, Cardizem)? @ -No Were any procedures done? @ -No Diagnosis/symptom? Acute, or Chronic, or Acute on Chronic? Uncomplicated (without systemic symptoms) or Complicated (systemic symptoms)? @ -A bowel obstruction, complicated by fever and leukocytosis. Side effects of treatment? @ -No Exacerbation, Progression, or Severe Exacerbation? @ -No Poses a threat to life or bodily function? How? (Chest pain, USA, VT, pneumonia, PE, COPD, DKA, ARF, appy, cholecystitis, CVA, Diverticulitis, Homicidal, Suicidal, threat to staff... and all critical care pts) @ -yes - Lab Data Result diagrams: 06/04/23 13:49 06/04/23 13:49 Lab Results 06/04/23 06/04/23 06/04/23 Range/Units 13:49 13:49 13:49 WBC 16.5 H (3.8-10.6) k/uL RBC 5.55 (4.30-5.90) m/uL Hgb 15.0 (13.0-17.5) gm/dL Hct 44.8 (39.0-53.0) % MCV 80.7 (80.0-100.0) fL MCH 26.9 (25.0-35.0) pg MCHC 33.4 (31.0-37.0) g/dL RDW 14.2 (11.5-15.5) % Plt Count 357 (150-450) k/uL MPV 8.3 Neutrophils % 86 % Lymphocytes % 9 % Monocytes % 5 % Eosinophils % 0 % Basophils % 0 % Neutrophils # 14.2 H (1.3-7.7) k/uL Lymphocytes # 1.4 (1.0-4.8) k/uL Monocytes # 0.7 (0-1.0) k/uL Eosinophils # 0.1 (0-0.7) k/uL Basophils # 0.0 (0-0.2) k/uL PT 12.3 (10.0-12.5) sec INR 1.1 (<1.2) APTT 28.3 (22.0-30.0) sec Sodium (137-145) mmol/L Potassium (3.5-5.1) mmol/L Chloride (98-107) mmol/L Carbon Dioxide (22-30) mmol/L Anion Gap mmol/L BUN (9-20) mg/dL Creatinine (0.66-1.25) mg/dL Est GFR (CKD-EPI)AfAm (>60 ml/min/1.73 sqM) Est GFR (CKD-EPI)NonAf (>60 ml/min/1.73 sqM) Glucose (74-99) mg/dL Plasma Lactic Acid Bunny (0.7-2.0) mmol/L Calcium (8.4-10.2) mg/dL Total Bilirubin (0.2-1.3) mg/dL AST (17-59) U/L ALT (4-49) U/L Alkaline Phosphatase (38-126) U/L Total Protein (6.3-8.2) g/dL Albumin (3.5-5.0) g/dL Lipase (23-300) U/L Urine Color Colorless Urine Appearance Clear (Clear) Urine pH 7.0 (5.0-8.0) Ur Specific Harris 1.002 (1.001-1.035) Urine Protein Negative (Negative) Urine Glucose (UA) Negative (Negative) Urine Ketones Negative (Negative) Urine Blood Negative (Negative) Urine Nitrite Negative (Negative) Urine Bilirubin Negative (Negative) Urine Urobilinogen <2.0 (<2.0) mg/dL Ur Leukocyte Esterase Negative (Negative) Influenza Type A (PCR) (Not Detectd) Influenza Type B (PCR) (Not Detectd) RSV (PCR) (Not Detectd) SARS-CoV-2 (PCR) (Not Detectd) 06/04/23 06/04/23 06/04/23 Range/Units 13:49 13:49 15:00 WBC (3.8-10.6) k/uL RBC (4.30-5.90) m/uL Hgb (13.0-17.5) gm/dL Hct (39.0-53.0) % MCV (80.0-100.0) fL MCH (25.0-35.0) pg MCHC (31.0-37.0) g/dL RDW (11.5-15.5) % Plt Count (150-450) k/uL MPV Neutrophils % % Lymphocytes % % Monocytes % % Eosinophils % % Basophils % % Neutrophils # (1.3-7.7) k/uL Lymphocytes # (1.0-4.8) k/uL Monocytes # (0-1.0) k/uL Eosinophils # (0-0.7) k/uL Basophils # (0-0.2) k/uL PT (10.0-12.5) sec INR (<1.2) APTT (22.0-30.0) sec Sodium 141 (137-145) mmol/L Potassium 3.8 (3.5-5.1) mmol/L Chloride 107 (98-107) mmol/L Carbon Dioxide 22 (22-30) mmol/L Anion Gap 12 mmol/L BUN 14 (9-20) mg/dL Creatinine 1.28 H (0.66-1.25) mg/dL Est GFR (CKD-EPI)AfAm 86 (>60 ml/min/1.73 sqM) Est GFR (CKD-EPI)NonAf 75 (>60 ml/min/1.73 sqM) Glucose 108 H (74-99) mg/dL Plasma Lactic Acid Bunny 0.9 (0.7-2.0) mmol/L Calcium 9.4 (8.4-10.2) mg/dL Total Bilirubin 1.4 H (0.2-1.3) mg/dL AST 40 (17-59) U/L ALT 42 (4-49) U/L Alkaline Phosphatase 85 (38-126) U/L Total Protein 7.5 (6.3-8.2) g/dL Albumin 3.9 (3.5-5.0) g/dL Lipase 24 (23-300) U/L Urine Color Urine Appearance (Clear) Urine pH (5.0-8.0) Ur Specific Harris (1.001-1.035) Urine Protein (Negative) Urine Glucose (UA) (Negative) Urine Ketones (Negative) Urine Blood (Negative) Urine Nitrite (Negative) Urine Bilirubin (Negative) Urine Urobilinogen (<2.0) mg/dL Ur Leukocyte Esterase (Negative) Influenza Type A (PCR) Not Detected (Not Detectd) Influenza Type B (PCR) Not Detected (Not Detectd) RSV (PCR) Not Detected (Not Detectd) SARS-CoV-2 (PCR) Detected A (Not Detectd) Disposition Clinical Impression: SBO (small bowel obstruction) Disposition: ADMITTED IP TO THIS [facility] Condition: Serious Referrals: Katiuska Holley MD [Primary Care Provider] - 1-2 days Decision Time: 15:53
[2023-06-04 14:10] LABS: Appearance,Urine Clear (Clear); Bilirubin,Urine Negative (Negative); Blood,Urine Negative (Negative); Color,Urine Colorless; Glucose,Urine (UA) Negative (Negative); Ketones,Urine Negative (Negative); Leukocyte Esterase,Urine Negative (Negative); Nitrite,Urine Negative (Negative); Protein,Urine Negative (Negative); Specific Gravity,Urine 1.002 (1.001-1.035); Urobilinogen,Urine <2.0 mg/dL (<2.0)
[2023-06-04] MEDS: SODIUM CHLORIDE 0.9% 1,000 ML IV STA (14:10)
[2023-06-04] MEDS: ACETAMINOPHEN TAB 500 MG TAB PO STA (14:13)
[2023-06-04 14:23] LABS: Basophils % (A) 0 %; Eosinophils # (A) 0.1 k/uL (0-0.7); Eosinophils % (A) 0 %; HCT 44.8 % (39.0-53.0); Lymphocytes # (A) 1.4 k/uL (1.0-4.8); Lymphocytes % (A) 9 %; MCH 26.9 pg (25.0-35.0); MCHC 33.4 g/dL (31.0-37.0); MCV 80.7 fL (80.0-100.0); Mean Platelet Volume 8.3; Monocytes # (A) 0.7 k/uL (0-1.0); Monocytes % (A) 5 %; Neutrophils # (A) 14.2 k/uL (1.3-7.7); Neutrophils % (A) 86 %; Platelet Count 357 k/uL (150-450); RBC 5.55 m/uL (4.30-5.90); RDW 14.2 % (11.5-15.5); WBC 16.5 k/uL (3.8-10.6)
[2023-06-04 14:33] LABS: INR 1.1 (<1.2); Partial Thromboplastin Time 28.3 sec (22.0-30.0); Prothrombin Time 12.3 sec (10.0-12.5)
[2023-06-04 14:40] LABS: ALT 42 U/L (4-49); AST 40 U/L (17-59); African American GFR (CKD) 86 (>60 ml/min/1.73 sqM); Albumin 3.9 g/dL (3.5-5.0); Alkaline Phosphatase 85 U/L (38-126); Anion Gap 12 mmol/L; Blood Urea Nitrogen 14 mg/dL (9-20); Calcium 9.4 mg/dL (8.4-10.2); Carbon Dioxide 22 mmol/L (22-30); Chloride 107 mmol/L (98-107); Glucose 108 mg/dL (74-99); Lipase 24 U/L (23-300); Non-African American GFR(CKD) 75 (>60 ml/min/1.73 sqM); Potassium 3.8 mmol/L (3.5-5.1); Sodium 141 mmol/L (137-145); Total Bilirubin 1.4 mg/dL (0.2-1.3); Total Protein 7.5 g/dL (6.3-8.2)
--- NOTE | 2023-06-04 15:24 | CT ---
EXAMINATION TYPE: CT abdomen pelvis w con DATE OF EXAM: 06/04/2023 COMPARISON: 09/21/2021 INDICATION: lower abd pain DLP: 3387 mGycm, Automated exposure control for dose reduction was used. CONTRAST: 100 mL of Isovue 300. Study performed without Oral Contrast TECHNIQUE: Axial images were obtained from above the diaphragm to the pubic rami in the axial plane a t 5 mm thick sections. Reconstructed images are reviewed on the computer in the coronal plane. FINDINGS: Limited CT sections are obtained the lung bases. The lung bases are clear. CT ABDOMEN: Liver: Normal Spleen: Normal Pancreas: Normal Adrenal glands: The adrenal glands are normal. Gallbladder: Normal Kidneys: No masses are evident. There is prominent hydronephrosis bilateral kidneys. Hydroureters are present extending to the urinary bladder. No obstructing etiology is identified. Aorta: Normal Inferior vena cava: Normal. CT PELVIS: There is a large anterior abdominal wall hernia containing loops of bowel. The exiting loo ps appear to be decompressed. Loops of bowel extending towards this area. The dilator. This may be th e source of the parent small bowel obstruction. There are multiple dilated fluid-filled loops of bowel. Distal small bowel loops appear decompressed. Colon is decompressed. Appendix: Normal as visualized. Urinary bladder: Diffuse wall thickening still urinary bladder. Genitourinary structures: Prostate is normal Osseous structures: No suspicious lytic or sclerotic lesions. Report was called to the emergency room physician by Dr. Hutchins by telephone at the time of interpre tation. IMPRESSION: 1. Small bowel obstruction from loops of bowel within the anterior abdominal wall hernia. 2. Prominent hydronephrosis present bilaterally with hydroureter and obstructing etiology however is not identified. This was present previously and appears increased over the interval. 3. Diffusely thickened urinary bladder wall
[2023-06-04] MEDS ORDERED: NALOXONE 0.4 MG/ML 1 ML VIAL IV PRN (15:49)
[2023-06-04] MEDS: MORPHINE SULFATE 4 MG/ML SYRINGE IV PRN (16:01)
[2023-06-04] MEDS: PIPERACILLIN-TAZOBACTAM 3.375 GM in SODIUM CHLORIDE 0.9% 100 ML IVPB SCH (16:03)
[2023-06-04] MEDS: SODIUM CHLORIDE 0.9% 2,400 ML IV STA (16:12)
--- NOTE | 2023-06-04 17:29 | P.GSHP ---
History of Present Illness H&P Date: 06/04/23 Chief Complaint: Abdominal pain 28-year-old male presents to the ER complaining of abdominal pain. Symptoms began in the last 3 days. More discomfort at his umbilical hernia site. He has known about this hernia for several years but it is enlarging. Patient febrile. White blood cell count elevated. He underwent CAT scan abdomen pelvis that was reviewed with radiology this afternoon. The patient has a loop of transverse colon in the hernia that appears nonobstructive. There is significant inflammatory changes in the left lower abdomen. On careful review there are 2 small foci of air adjacent to the sigmoid colon likely on the basis of microperforation from diverticulitis. There is significant inflammation involving the small bowel loops anterior to the sigmoid colon in that area as well. There appears to be proximal small bowel dilation and ileus or partial obstruction at that site is suspected. Patient's stomach is quite distended. Patient also has chronic bilateral hydronephrosis and bladder wall thickening. Apparently he was told a few years ago after a CAT scan performed in 2020 that he needed to follow-up with urology and never did so. Creatinine today 1.28. Patient with some decreased bowel activity. He has been nauseated. No vomiti ng. No abdominal surgeries. Patient found to be COVID-positive today. - Review of Systems Comment: The patient denies any acute changes in vision or hearing, no dysphagia or odynophagia, no chest pain or shortness of breath, no dysuria or hematuria, no headache, no runny nose, no rectal bleeding or melena, no unexplained weight loss Past Medical History Past Medical History: No Reported History History of Any Multi-Drug Resistant Organisms: None Reported Past Surgical History: No Surgical Hx Reported Past Psychological History: No Psychological Hx Reported Smoking Status: Never smoker Past Alcohol Use History: None Reported Past Drug Use History: Marijuana Medications and Allergies Home Medications Medication Instructions Recorded Confirmed Type No Known Home Medications 06/04/23 06/04/23 History Allergies Allergy/AdvReac Type Severity Reaction Status Date / Time No Known Allergies Allergy Verified 06/04/23 15:29 Surgical - Exam Vital Signs Temp Pulse Resp BP Pulse Ox 100.7 F H 107 H 20 134/75 94 L 06/04/23 13:25 06/04/23 13:25 06/04/23 13:25 06/04/23 13:25 06/04/23 13:25 Physical exam: General: Well-developed, well-nourished HEENT: Normocephalic, sclerae nonicteric Abdomen: Obese male with large pannus, partially reducible umbilical hernia, umbilical skin slightly ischemic because of the large size of this hernia, left lower quadrant tenderness greater than right Extremities: No edema Neuro: Alert and oriented Results - Labs 06/04/23 13:49 06/04/23 13:49 Abnormal Lab Results - Last 24 Hours (Table) 06/04/23 06/04/23 06/04/23 Range/Units 13:49 13:49 15:00 WBC 16.5 H (3.8-10.6) k/uL Neutrophils # 14.2 H (1.3-7.7) k/uL Creatinine 1.28 H (0.66-1.25) mg/dL Glucose 108 H (74-99) mg/dL Total Bilirubin 1.4 H (0.2-1.3) mg/dL SARS-CoV-2 (PCR) Detected A (Not Detectd) Diabetes panel 06/04/23 Range/Units 13:49 Sodium 141 (137-145) mmol/L Potassium 3.8 (3.5-5.1) mmol/L Chloride 107 (98-107) mmol/L Carbon Dioxide 22 (22-30) mmol/L BUN 14 (9-20) mg/dL Creatinine 1.28 H (0.66-1.25) mg/dL Glucose 108 H (74-99) mg/dL Calcium 9.4 (8.4-10.2) mg/dL AST 40 (17-59) U/L ALT 42 (4-49) U/L Alkaline Phosphatase 85 (38-126) U/L Total Protein 7.5 (6.3-8.2) g/dL Albumin 3.9 (3.5-5.0) g/dL Calcium panel 06/04/23 Range/Units 13:49 Calcium 9.4 (8.4-10.2) mg/dL Albumin 3.9 (3.5-5.0) g/dL Pituitary panel 06/04/23 Range/Units 13:49 Sodium 141 (137-145) mmol/L Potassium 3.8 (3.5-5.1) mmol/L Chloride 107 (98-107) mmol/L Carbon Dioxide 22 (22-30) mmol/L BUN 14 (9-20) mg/dL Creatinine 1.28 H (0.66-1.25) mg/dL Glucose 108 H (74-99) mg/dL Calcium 9.4 (8.4-10.2) mg/dL Adrenal panel 06/04/23 Range/Units 13:49 Sodium 141 (137-145) mmol/L Potassium 3.8 (3.5-5.1) mmol/L Chloride 107 (98-107) mmol/L Carbon Dioxide 22 (22-30) mmol/L BUN 14 (9-20) mg/dL Creatinine 1.28 H (0.66-1.25) mg/dL Glucose 108 H (74-99) mg/dL Calcium 9.4 (8.4-10.2) mg/dL Total Bilirubin 1.4 H (0.2-1.3) mg/dL AST 40 (17-59) U/L ALT 42 (4-49) U/L Alkaline Phosphatase 85 (38-126) U/L Total Protein 7.5 (6.3-8.2) g/dL Albumin 3.9 (3.5-5.0) g/dL Assessment and Plan (1) Colon perforation Narrative/Plan: 28-year-old male with suspected sigmoid diverticulitis with microperforation. Patient with adjacent inflammatory changes contributing to proximal small bowel dilation and possible obstruction. Discussed options of nasogastric tube placement. If nausea persist or vomiting develops will proceed with NG tube insertion. Begin broad-spectrum antibiotics. Consult infectious disease. Consult urology. Consult hospitalist service. Keep n.p.o. for now. Will follow closely. Current Visit: Yes Status: Acute Code(s): K63.1 - PERFORATION OF INTESTINE (NONTRAUMATIC) SNOMED Code(s): 74688833
[2023-06-04] MEDS: SODIUM CHLORIDE 0.9% 1,000 ML IV SCH (18:18)
[2023-06-04] MEDS: ONDANSETRON 4 MG/2 ML VIAL IVP PRN (23:48)
--- NOTE | 2023-06-05 08:44 | P.GSCN ---
History of Present Illness Consult date: 06/05/23 History of present illness: 28 yo male in the hospital with abdominal pain due to probable diverticulitis. Had a ct scan that showed bilateral hydronephrosis, chronic with a full bladder. For this reason we were asked to see the patient. the patient apparently was aware of this from a ct scan in 2020. He was referred to urology but never followed up. His urine is clear. His cr is 1.28 the patient denies history of urinary infections or hematuria. He does admit to frequent urination as well as incontinence in particular nocturnal continence. He denies having evaluation as a kid. He did have a catheter for "urine retention" back in 2020. He states that they had some difficulty passing the catheter but were able to pass. There is no previous urologic evaluation. He states his urine stream is relatively good. Review of Systems All systems: negative - Constitutional Denies fever, Denies weight loss - EENT Eyes: denies blurred vision Ears, nose, mouth and throat: Denies dysphagia - Cardiovascular Denies chest pain, Denies shortness of breath - Respiratory Denies cough, Denies 7 - Gastrointestinal Reports as per HPI - Genitourinary Denies dysuria, Denies hematuria - Integumentary Denies rash, Denies unusual bruising - Neurological Denies headaches, Denies syncope - Hematologic/Lymphatic Denies easy bleeding, Denies easy bruising Past Medical History Past Medical History: No Reported History History of Any Multi-Drug Resistant Organisms: None Reported Past Surgical History: No Surgical Hx Reported Past Psychological History: No Psychological Hx Reported Smoking Status: Never smoker Past Alcohol Use History: None Reported Past Drug Use History: Marijuana Medications and Allergies Home Medications Medication Instructions Recorded Confirmed Type No Known Home Medications 06/04/23 06/04/23 History Allergies Allergy/AdvReac Type Severity Reaction Status Date / Time No Known Allergies Allergy Verified 06/04/23 15:29 Surgical - Exam Vital Signs Temp Pulse Resp BP Pulse Ox 100.7 F H 107 H 20 134/75 94 L 06/04/23 13:25 06/04/23 13:25 06/04/23 13:25 06/04/23 13:25 06/04/23 13:25 - General well developed, well nourished, no distress, obese - Eyes normal ocular movement, no icteric - ENT no hearing loss, no congestion - Neck no masses, trachea midline - Respiratory normal respiratory effort, clear to auscultation - Abdomen Abdomen: soft, non tender, no guarding, no rigid, no rebound - Integumentary no rash, no abnormal pigmentation - Neurologic no disoriented, no combative - Psychiatric oriented to time, oriented to person, oriented to place, speech is normal, memory intact Results - Labs 06/04/23 13:49 06/04/23 13:49 Abnormal Lab Results - Last 24 Hours (Table) 06/04/23 06/04/23 06/04/23 Range/Units 13:49 13:49 15:00 WBC 16.5 H (3.8-10.6) k/uL Neutrophils # 14.2 H (1.3-7.7) k/uL Creatinine 1.28 H (0.66-1.25) mg/dL Glucose 108 H (74-99) mg/dL Total Bilirubin 1.4 H (0.2-1.3) mg/dL SARS-CoV-2 (PCR) Detected A (Not Detectd) Diabetes panel 06/04/23 Range/Units 13:49 Sodium 141 (137-145) mmol/L Potassium 3.8 (3.5-5.1) mmol/L Chloride 107 (98-107) mmol/L Carbon Dioxide 22 (22-30) mmol/L BUN 14 (9-20) mg/dL Creatinine 1.28 H (0.66-1.25) mg/dL Glucose 108 H (74-99) mg/dL Calcium 9.4 (8.4-10.2) mg/dL AST 40 (17-59) U/L ALT 42 (4-49) U/L Alkaline Phosphatase 85 (38-126) U/L Total Protein 7.5 (6.3-8.2) g/dL Albumin 3.9 (3.5-5.0) g/dL Calcium panel 06/04/23 Range/Units 13:49 Calcium 9.4 (8.4-10.2) mg/dL Albumin 3.9 (3.5-5.0) g/dL Pituitary panel 06/04/23 Range/Units 13:49 Sodium 141 (137-145) mmol/L Potassium 3.8 (3.5-5.1) mmol/L Chloride 107 (98-107) mmol/L Carbon Dioxide 22 (22-30) mmol/L BUN 14 (9-20) mg/dL Creatinine 1.28 H (0.66-1.25) mg/dL Glucose 108 H (74-99) mg/dL Calcium 9.4 (8.4-10.2) mg/dL Adrenal panel 06/04/23 Range/Units 13:49 Sodium 141 (137-145) mmol/L Potassium 3.8 (3.5-5.1) mmol/L Chloride 107 (98-107) mmol/L Carbon Dioxide 22 (22-30) mmol/L BUN 14 (9-20) mg/dL Creatinine 1.28 H (0.66-1.25) mg/dL Glucose 108 H (74-99) mg/dL Calcium 9.4 (8.4-10.2) mg/dL Total Bilirubin 1.4 H (0.2-1.3) mg/dL AST 40 (17-59) U/L ALT 42 (4-49) U/L Alkaline Phosphatase 85 (38-126) U/L Total Protein 7.5 (6.3-8.2) g/dL Albumin 3.9 (3.5-5.0) g/dL - Imaging CT scan - abdomen: report reviewed, image reviewed CT scan - pelvis: report reviewed, image reviewed Assessment and Plan Assessment: Impression: Diverticulitis with abdominal pain Obesity, Bilateral hydronephrosis with probable incomplete bladder emptying r/o lower tract obstruction[ urethral stricture, posterior urethral valves, ngb]. Plan: as an outpatient the patient will need a cysto and possible voiding cystourethrogram. This has been discussed with the patient at length. Time with Patient: Greater than 30
[2023-06-05 11:08] LABS: Basophils # (A) 0.02 X 10*3/uL (0.00-0.10); Basophils % (A) 0.1 %; Eosinophils # (A) 0 X 10*3/uL (0.04-0.35); Eosinophils % (A) 0 %; HCT 45.6 % (39.6-50.0); HGB 14.5 g/dL (13.0-17.0); Lymphocytes # (A) 1.44 X 10*3/uL (0.90-5.00); Lymphocytes % (A) 10.4 %; MCH 27.1 pg (27.0-32.0); MCHC 31.8 g/dL (32.0-37.0); MCV 85.1 FL (80.0-97.0); Mean Platelet Volume 10.8 FL (9.5-12.2); Monocytes # (A) 0.97 X 10*3/uL (0.20-1.00); NRBC Per 100 WBC 0 X 10*3/uL (0.00-0.01); Neutrophils # (A) 11.37 X 10*3/uL (1.80-7.70); Neutrophils % (A) 82.2 %; Platelet Count 392 X 10*3/uL (140-440); RBC 5.36 X 10*6/uL (4.40-5.60); RDW 15.3 % (11.5-14.5); WBC 13.84 X 10*3/uL (4.50-10.00)
[2023-06-05 11:48] LABS: Blood Urea Nitrogen 14.1 mg/dL (9.0-27.0); Calcium 10.1 mg/dL (8.7-10.3); Carbon Dioxide 24.5 mmol/L (21.6-31.8); Chloride 119 mmol/L (96-109); Glucose 102 mg/dL (70-110); Potassium 4.4 mmol/L (3.5-5.5); Sodium 158 mmol/L (135-145)
--- NOTE | 2023-06-05 14:58 | P.CONS ---
History of Present Illness - Reason for Consult Consult date: 06/05/23 Medical management, diverticulitis - History of Present Illness This is a 28-year-old male who presented to the emergency department with fevers and abdominal pain. Patient reports that the pain had been progressively be coming more worse over the last few days and he does have a noted umbilical hernia history and the site was painful and patient had associated fevers. Patient with no significant past medical history and reports has not followed up with a primary care provider in years although Dr. Holley was his last primary care provider. Patient reports he does use marijuana daily including vaping and denies smoking and denies alcohol use. Patient underwent an abdominal CT that was noted to have some inflammatory changes that are also adjacent to the sigmoid colon in the left lower quadrant with a couple of small loculated tiny amount of free air that may be present in that region with acute diverticulitis with small perforation that could be considered. Also noted to have a small bowel obstruction from loops or bowel within the anterior abdominal wall hernia with prominent hydronephrosis present bilaterally with hydroureter and obstructing etiology however not identified of note this was present previously and appears increased from previous imaging and there is a diffusely thickened urinary bladder wall. Patient was seen and evaluated briefly by urology and is having no difficulties with urination and reports this is chronic since 2020 and has also been instructed to follow-up outpatient for cystoscopy. Patient was started on Antibiotics in the form of Zosyn and pain management with IV hydration admitted under surgery for diverticulitis. Patient is currently n.p.o. and infectious diseases also consulted. Labs revealed a white count of 16.5, hemoglobin 15.0, sodium was 141 with a potassium of 3.8, creatinine mildly elevated at 1.28, total bili is 1.4, urinalysis was negative, patient is positive for COVID. REVIEW OF SYSTEMS: CONSTITUTIONAL: No fever, no malaise, no fatigue. HEENT: No recent visual problems or hearing problems. Denied any sore throat. CARDIOVASCULAR: No chest pain, orthopnea, PND, no palpitations, no syncope. PULMONARY: No shortness of breath, no cough, no hemoptysis. GASTROINTESTINAL: No diarrhea, no nausea, no vomiting, reports lower abdominal pain. NEUROLOGICAL: No headaches, no weakness, no numbness. HEMATOLOGICAL: Denies any bleeding or petechiae. GENITOURINARY: Denies any burning micturition, frequency, or urgency. MUSCULOSKELETAL/RHEUMATOLOGICAL: Denies any joint pain, swelling, or any muscle pain. ENDOCRINE: Denies any polyuria or polydipsia. The rest of the 14-point review of systems is negative. PHYSICAL EXAMINATION: GENERAL: The patient is alert and oriented x3, not in any acute distress. Well d eveloped, well nourished. Morbidly obese HEENT: Pupils are round and equally reacting to light. EOMI. No scleral icterus. No conjunctival pallor. Normocephalic, atraumatic. No pharyngeal erythema. No thyromegaly. CARDIOVASCULAR: S1 and S2 present. No murmurs, rubs, or gallops. PULMONARY: Chest is clear to auscultation, no wheezing or crackles. ABDOMEN: Soft, obese nontender, nondistended, normoactive bowel sounds. No palpable organomegaly. MUSCULOSKELETAL: No joint swelling or deformity. EXTREMITIES: No cyanosis, clubbing, or pedal edema. NEUROLOGICAL: Gross neurological examination did not reveal any focal deficits. SKIN: No rashes. Assessment: Abdominal pain with fevers, secondary to acute diverticulitis as noted on CT with microperforation and possible bowel obstruction Morbid obesity with a body mass index of 46.1 Bilateral hydronephrosis as noted on CT, evaluated by urology recommending outpatient cystoscopy Acute COVID-19 infection Leukocytosis secondary to assessment #1 Daily marijuana use including vaping Noncompliance to medical care, has not been seen by a primary care provider in years DVT prophylaxis GI prophylaxis Full code Plan: Patient was started on antibiotics and admitted to general surgery with infectious disease on consulted for acute diverticulitis with microperforation and possible bowel obstruction Patient was seen and evaluated by urology with concerns of bilateral hydronephrosis noted on CT and patient denies having any pain or difficulty with urination and reports was told of this years ago about stricture although having no difficulties. Urology recommending outpatient follow-up with cystoscopy Continue n.p.o. for now per surgery recommendations Sodium was elevated at 158 on this morning's labs and unsure if this is correct and appears to be an error, patient was continued on normal saline at 130 mL/h and will hold and repeat stat labs as previous sodium level was 141. Kidney functions appear elevated although unsure of baseline as patient has been extremely noncompliant to any type of follow-up. Patient reports he has not seen a doctor in years We will continue to follow with general surgery and make further recommenda tions. Thank you kindly for this consultation The impression and plan of care has been dictated by Jayashree Leyva, Nurse Practitioner as directed. Dr. Shaneka MD I have performed a history and examination and MDM of this patient, discussed the same with the dictator, and agree with the dictator's assessment and plan as written ,documented as a scribe. Based on total visit time, I have performed more than 50% of the visit. Past Medical History Past Medical History: No Reported History History of Any Multi-Drug Resistant Organisms: None Reported Past Surgical History: No Surgical Hx Reported Past Psychological History: No Psychological Hx Reported Smoking Status: Never smoker Past Alcohol Use History: None Reported Past Drug Use History: Marijuana Medications and Allergies Home Medications Medication Instructions Recorded Confirmed Type No Known Home Medications 06/04/23 06/04/23 History Allergies Allergy/AdvReac Type Severity Reaction Status Date / Time No Known Allergies Allergy Verified 06/04/23 15:29 Physical Exam Vitals: Vital Signs Temp Pulse Pulse Resp BP BP BP 06/05/23 07:02 98.3 F 77 20 114/78 06/05/23 02:00 99.7 F H 92 16 123/77 06/04/23 20:04 99.5 F 84 18 129/72 06/04/23 20:00 99.7 F H 88 17 06/04/23 16:17 52 L 18 149/79 06/04/23 15:55 99.5 F 80 18 112/71 06/04/23 13:25 100.7 F H 107 H 20 134/75 BP Pulse Ox 06/05/23 07:02 97 06/05/23 02:00 95 06/04/23 20:04 95 06/04/23 20:00 121/69 94 L 06/04/23 16:17 99 06/04/23 15:55 96 06/04/23 13:25 94 L Intake and Output 06/04/23 06/05/23 06/05/23 22:59 06:59 14:59 Intake Total 0 Balance 0 Intake: Oral 0 Other: Voiding Method Toilet # Voids 2 Weight 154.221 kg Results CBC & Chem 7: 06/05/23 06:33 06/05/23 06:33 Labs: Abnormal Lab Results - Last 24 Hours (Table) 06/04/23 06/04/23 06/04/23 Range/Units 13:49 13:49 15:00 WBC 16.5 H (3.8-10.6) k/uL Neutrophils # 14.2 H (1.3-7.7) k/uL Creatinine 1.28 H (0.66-1.25) mg/dL Glucose 108 H (74-99) mg/dL Total Bilirubin 1.4 H (0.2-1.3) mg/dL SARS-CoV-2 (PCR) Detected A (Not Detectd)
--- NOTE | 2023-06-05 15:04 | P.PN ---
Subjective Progress Note Date: 06/05/23 CHIEF COMPLAINT: Abdominal pain HISTORY OF PRESENT ILLNESS: Patient is sitting at bedside chair. He reports that his pain has shown improvement. He rates his pain about a 2 out of 10. He did have nausea last night this is better. Patient denies any flatus. Afebrile. WBC is down from 16.5-13.84 Hgb 14.5 platelets 392 sodium is 158 creatinine 1.5 PHYSICAL EXAM: VITAL SIGNS: Reviewed. GENERAL: Well-developed in no acute distress. ABDOMEN: Soft. Obese with large pannus, partially reducible umbilical hernia. tenderness to palpation of left lower quadrant NEUROLOGIC: Alert and oriented. Cranial nerves II through XII grossly intact. ASSESSMENT: 1. Suspected sigmoid diverticulitis with microperforation. Adjacent inflammatory changes contributing to proximal small bowel dilation and possible ileus versus small bowel obstruction 2. Bilateral hydronephrosis with probable incomplete bladder emptying. Patient seen by urology. Plans for outpatient cystoscopy 3. COVID-positive PLAN: -Okay to keep NG tube out -Keep patient n.p.o. -Continue antibiotics -Continue IV fluids. May need to adjust depending on repeat Na level. -Hypernatremia management per medicine service -Continue to monitor patient closely -Continue pain management -GI prophylaxis Pepcid and DVT prophylaxis subcu heparin Physician Revenue Director note has been reviewed by physician. Signing provider agrees with the documented findings, assessment, and plan of care. I have personally seen and examined the patient, reviewed the PROFESSOR OF COMMUNICATION /PAs history, exam and MDM and agree with the assessment and plan as written. Based on total visit time, I have performed more than 50% of the visit. As above: Patient says he feels much better today. Only having mild pain at the umbilical hernia site currently. Labs noted. White blood cell count improved. Appreciate consultants. Continue broad-spectrum antibiotics. Begin clear liquid diet. Repeat abdominal x-rays tomorrow. Tentatively plan repeat CAT scan Thursday. Objective - Vital Signs Vital signs: Vital Signs Temp 97.9 F 06/05/23 13:20 Pulse 77 06/05/23 13:20 Resp 20 06/05/23 13:20 BP 111/76 06/05/23 13:20 Pulse Ox 93 L 06/05/23 13:20 FiO2 Intake & Output 06/04/23 06/05/23 06/05/23 18:59 06:59 18:59 Intake Total 0 Output Total 243 Balance 0 -243 Weight 154.221 kg 154.221 kg Intake: Oral 0 Output: Post Void Residual 243 Other: Voiding Method Toilet # Voids 2 - Labs CBC & Chem 7: 06/05/23 06:33 06/05/23 15:10 Labs: Abnormal Lab Results - Last 24 Hours (Table) 06/04/23 06/05/23 06/05/23 Range/Units 15:00 06:33 06:33 WBC 13.84 H (4.50-10.00) X 10*3/uL MCHC 31.8 L (32.0-37.0) g/dL RDW 15.3 H (11.5-14.5) % Neutrophils # 11.37 H (1.80-7.70) X 10*3/uL Eosinophils # 0 L (0.04-0.35) X 10*3/uL Sodium 158 H (135-145) mmol/L Chloride 119 H (96-109) mmol/L Anion Gap 14.50 H (4.00-12.00) mmol/L BUN/Creatinine Ratio 9.40 L (12.00-20.00) Ratio SARS-CoV-2 (PCR) Detected A (Not Detectd)
[2023-06-05] MEDS: FAMOTIDINE 20 MG/2 ML VIAL IV SCH (15:28)
[2023-06-05 15:49] LABS: African American GFR (CKD) 64 (>60 ml/min/1.73 sqM); Anion Gap 13 mmol/L; Blood Urea Nitrogen 17 mg/dL (9-20); Calcium 10.3 mg/dL (8.4-10.2); Carbon Dioxide 26 mmol/L (22-30); Chloride 125 mmol/L (98-107); Glucose 104 mg/dL (74-99); Non-African American GFR(CKD) 55 (>60 ml/min/1.73 sqM)
[2023-06-05 15:58] LABS: Sodium 164 mmol/L (137-145)
--- NOTE | 2023-06-05 16:03 | P.CONS ---
History of Present Illness - Reason for Consult Consult date: 06/05/23 Diverticulitis with microperforation Requesting physician: Mehul Ghotra - Chief Complaint Abdominal pain x 3 days - History of Present Illness Patient is a 28-year-old male with no significant past medical history presenting to the ER increasing abdominal pain x 3 days patient mention he did have umbilical hernia and has been complaining of pain mostly to the brachial hernia area describing it to be dull aching to sharp moderate intensity without any radiation did have some nausea but no vomiting no diarrhea constipation apparently was complaining of fever with the send the patient was evaluated on presentation to the hospital he did have a temperature of 100.7 F patient was tachycardic but not hypotensive or hypoxic he did have white count of 16.5 with a left shift creatinine was mildly elevated subsequent normalized liver enzymes are normal urine has been negative also tested positive for COVID-19 patient did have abdominal pelvis CT initially for small bowel obstruction prominent hydronephrosis diffusely thickened urinary bladder wall subsequent review did mention diverticulitis with microperforation but no abscess patient was started on Zosyn infectious disease was consulted for further management of antibiotic therapy, patient currently did not have significant respiratory symptoms denies any chest pain shortness of breath or cough and is currently on room air satting 97% Review of Systems Positive point and negatives has been mentioned in the HPI, complete review of systems was performed and all other systems are negative Past Medical History Past Medical History: No Reported History History of Any Multi-Drug Resistant Organisms: None Reported Past Surgical History: No Surgical Hx Reported Past Psychological History: No Psychological Hx Reported Smoking Status: Never smoker Past Alcohol Use History: None Reported Past Drug Use History: Marijuana Medications and Allergies Home Medications Medication Instructions Recorded Confirmed Type No Known Home Medications 06/04/23 06/04/23 History Allergies Allergy/AdvReac Type Severity Reaction Status Date / Time No Known Allergies Allergy Verified 06/04/23 15:29 Physical Exam Vitals: Vital Signs Temp Pulse Pulse Resp BP BP BP 06/05/23 07:02 98.3 F 77 20 114/78 06/05/23 02:00 99.7 F H 92 16 123/77 06/04/23 20:04 99.5 F 84 18 129/72 06/04/23 20:00 99.7 F H 88 17 06/04/23 16:17 52 L 18 149/79 06/04/23 15:55 99.5 F 80 18 112/71 06/04/23 13:25 100.7 F H 107 H 20 134/75 BP Pulse Ox 06/05/23 07:02 97 06/05/23 02:00 95 06/04/23 20:04 95 06/04/23 20:00 121/69 94 L 06/04/23 16:17 99 06/04/23 15:55 96 06/04/23 13:25 94 L Intake and Output 06/04/23 06/05/23 06/05/23 22:59 06:59 14:59 Intake Total 0 Output Total 224 Balance 0 -224 Intake: Oral 0 Output: Post Void Residual 224 Other: Voiding Method Toilet # Voids 2 Weight 154.221 kg GENERAL DESCRIPTION: Middle-aged male lying in bed, no distress. No tachypnea or accessory muscle of respiration use. HEENT: Shows Pallor , no scleral icterus. Oral mucous membrane is dry. NECK: Trachea central, no thyromegaly. LUNGS: Unlabored breathing. Clear to auscultation anteriorly. No wheeze or crackle. HEART: S1, S2, regular rate and rhythm. No loud murmur ABDOMEN: Soft, mild tenderness , no guarding or rigidity EXTREMITIES: No edema of feet. SKIN: No rash, no masses palpable. NEUROLOGICAL: The patient is awake, alert, oriented x3, mood and affect normal. Results CBC & Chem 7: 06/05/23 06:33 06/05/23 15:10 Labs: Abnormal Lab Results - Last 24 Hours (Table) 06/04/23 06/04/23 06/04/23 Range/Units 13:49 13:49 15:00 WBC 16.5 H (3.8-10.6) k/uL Neutrophils # 14.2 H (1.3-7.7) k/uL Creatinine 1.28 H (0.66-1.25) mg/dL Glucose 108 H (74-99) mg/dL Total Bilirubin 1.4 H (0.2-1.3) mg/dL SARS-CoV-2 (PCR) Detected A (Not Detectd) Assessment and Plan (1) Sepsis Current Visit: Yes Status: Acute Code(s): A41.9 - SEPSIS, UNSPECIFIED ORGANISM SNOMED Code(s): 56055704 (2) Perforation of sigmoid colon due to diverticulitis Current Visit: Yes Status: Acute Code(s): K57.20 - DVTRCLI OF LG INT W PERFORATION AND ABSCESS W/O BLEEDING SNOMED Code(s): 4236960953605015 (3) COVID-19 Current Visit: Yes Status: Acute Code(s): U07.1 - COVID-19 SNOMED Code(s): 469086258 Plan: 1patient presented to hospital with abdominal pain and fever and this patient has been diagnosed with a small bowel obstruction in addition to evidence of sigmoid diverticulitis with microperforation but did not mention any zohaib abscess we will need to cover for enteric gram-negative both anaerobes and anaerobes 2patient did tested positive for COVID-19 currently do not have significant respiratory symptoms or hypoxemia so no need for steroids or remdesivir 3Zosyn 3.375 grams every 8 hour to continue and will monitor clinical course closely We will follow on clinical condition and cultures to further adjust medication if needed Thank you for this consultation we will follow the patient along with you Dictation was produced using [employer] dictation software. please excuse any grammatical, word or spelling errors. Time with Patient: Greater than 30
[2023-06-05] MEDS: DEXTROSE 5%-0.45% NACL 1,000 ML IV SCH (16:51)
[2023-06-05] MEDS: DEXTROSE 5% IN WATER 1,000 ML IV ONE (17:02)
[2023-06-05] MEDS: HEPARIN SODIUM,PORCINE 5,000 UNIT/ML 1 ML VIAL SQ SCH (21:20)
--- NOTE | 2023-06-06 08:24 | XR ---
EXAMINATION TYPE: XR abdomen 2V DATE OF EXAM: 06/06/2023 HISTORY: Pain. Technique: 4 views of the abdomen are submitted. Comparison: None. Findings: There is no convincing evidence of pneumoperitoneum. Dilated small bowel measuring up to 6.5 cm. Scattered air-fluid levels noted. Findings are felt to re flect mid to distal small bowel obstruction until proven otherwise. Paucity of air within the colon. No mass effects are noted. No renal calcifications are identified. IMPRESSION: 1. Dilated small bowel measuring up to 6.5 cm. Scattered air-fluid levels noted. Findings are felt to reflect mid to distal small bowel obstruction until proven otherwise.
[2023-06-06 09:41] LABS: Basophils # (A) 0.06 X 10*3/uL (0.00-0.10); Basophils % (A) 0.5 %; Eosinophils # (A) 0.03 X 10*3/uL (0.04-0.35); Eosinophils % (A) 0.2 %; HCT 45.9 % (39.6-50.0); HGB 14.3 g/dL (13.0-17.0); Lymphocytes # (A) 2.01 X 10*3/uL (0.90-5.00); Lymphocytes % (A) 16.2 %; MCH 26.5 pg (27.0-32.0); MCHC 31.2 g/dL (32.0-37.0); Mean Platelet Volume 10.7 FL (9.5-12.2); Monocytes # (A) 0.73 X 10*3/uL (0.20-1.00); Monocytes % (A) 5.9 %; NRBC Per 100 WBC 0 X 10*3/uL (0.00-0.01); Neutrophils # (A) 9.55 X 10*3/uL (1.80-7.70); Neutrophils % (A) 76.9 %; Platelet Count 420 X 10*3/uL (140-440); RDW 15.5 % (11.5-14.5); WBC 12.42 X 10*3/uL (4.50-10.00)
[2023-06-06 09:55] LABS: ALT 35 U/L (10-49); AST 22 U/L (14-35); Albumin 3.8 g/dL (3.8-4.9); Alkaline Phosphatase 105 U/L (41-126); BUN/Creat Ratio 9.94 Ratio (12.00-20.00); Blood Urea Nitrogen 15.9 mg/dL (9.0-27.0); Calcium 9.8 mg/dL (8.7-10.3); Carbon Dioxide 26.6 mmol/L (21.6-31.8); Chloride 120 mmol/L (96-109); Globulin 3.8 g/dL (1.6-3.3); Glucose 108 mg/dL (70-110); Potassium 3.9 mmol/L (3.5-5.5); Sodium 159 mmol/L (135-145); Total Bilirubin 0.7 mg/dL (0.3-1.2); Total Protein 7.6 g/dL (6.2-8.2)
--- NOTE | 2023-06-06 10:24 | P.PN ---
Subjective Progress Note Date: 06/06/23 The patient is in the hospital for diverticulitis and abdominal pain. He had a ct scan that identified bilateral hydronephrosis with a distended thickened bladder. His post void residual is 243ml A ct scan in 2020 identified the same problem but he did not follow with urology Objective - Vital Signs Vital signs: Vital Signs Temp 98.2 F 06/06/23 02:00 Pulse 72 06/06/23 02:00 Resp 15 06/06/23 02:00 BP 134/88 06/06/23 02:00 Pulse Ox 95 06/06/23 02:00 FiO2 Intake & Output 06/05/23 06/06/23 06/06/23 18:59 06:59 18:59 Output Total 243 Balance -243 Output: Post Void Residual 243 Other: Voiding Method Toilet # Voids 4 3 - Labs CBC & Chem 7: 06/06/23 06:05 06/06/23 06:05 Labs: Abnormal Lab Results - Last 24 Hours (Table) 06/05/23 06/05/23 06/05/23 Range/Units 06:33 06:33 15:10 WBC 13.84 H (4.50-10.00) X 10*3/uL MCHC 31.8 L (32.0-37.0) g/dL RDW 15.3 H (11.5-14.5) % Neutrophils # 11.37 H (1.80-7.70) X 10*3/uL Eosinophils # 0 L (0.04-0.35) X 10*3/uL Sodium 158 H 164 H* (135-145) mmol/L Chloride 119 H 125 H (96-109) mmol/L Anion Gap 14.50 H (4.00-12.00) mmol/L Creatinine 1.64 H (0.66-1.25) mg/dL BUN/Creatinine Ratio 9.40 L (12.00-20.00) Ratio Glucose 104 H (74-99) mg/dL Calcium 10.3 H (8.4-10.2) mg/dL Microbiology - Last 24 Hours (Table) 06/04/23 13:31 Blood Culture - Preliminary Blood 06/04/23 13:54 Blood Culture - Preliminary Blood Assessment and Plan Assessment: Impression: Bilateral hydronephrosis with incomplete bladerr emptying, chronic Recommendations. The patient possibly has posterior urethral valves. It is unlikely that he has a urethral stricture as he has had a catheter before. He also could have a non neurogenic neurogenic bladder with detrusor sphincter dyssynergia. He will need an op cmg and cystoscopy
--- NOTE | 2023-06-06 11:14 | P.NPCON ---
History of Present Illness - Reason for Consult Consult date: 06/06/23 acute renal failure, hypernatremia - History of Present Illness Patient is a 28 year old male presenting to hospital for abdominal pain. He was found to have acute diverticulitis wit microperforations and admitted for surgic al evaluation. He has undergone conservative management with improvement in his symptoms. He was not able to eat for multiple days and developed Kacy and hypernatremia. Today he was able to eat and drink without issue. He currently is feeling much better and denies any new complaints. He was also noted to have bilateral hydronephrosis on CT scan which was chronic and noted many years ago. He was told to follow-up with urology but never did. Vital signs are stable. General: NAD, AAOx3 HEENT: Atraumatic, neck supple LUNGS: CTAB, no W/R/R HEART: Rate and Rhythm are regular. ABDOMEN: Soft, non-tender, non-distended, obese EXTREMITITES: No edema. Review of Systems Constitutional: Reports as per HPI Past Medical History Past Medical History: No Reported History History of Any Multi-Drug Resistant Organisms: None Reported Past Surgical History: No Surgical Hx Reported Past Psychological History: No Psychological Hx Reported Smoking Status: Never smoker Past Alcohol Use History: None Reported Past Drug Use History: Marijuana Medications and Allergies Home Medications Medication Instructions Recorded Confirmed Type No Known Home Medications 06/04/23 06/04/23 History Allergies Allergy/AdvReac Type Severity Reaction Status Date / Time No Known Allergies Allergy Verified 06/04/23 15:29 Physical Exam Vitals: Vital Signs Temp Pulse Resp BP BP Pulse Ox 06/06/23 07:47 98.4 F 75 18 133/90 97 06/06/23 02:00 98.2 F 72 15 134/88 95 06/05/23 20:00 98.4 F 79 17 142/82 96 06/05/23 13:20 97.9 F 77 20 111/76 93 L Intake and Output 06/05/23 06/06/23 06/06/23 22:59 06:59 14:59 Other: Voiding Method Toilet # Voids 4 3 Results - Lab Results Most recent lab results Calcium 9.8 mg/dL (8.7-10.3) 06/06/23 06:05 06/06/23 06:05 06/06/23 06:05 Assessment and Plan Plan: Assessment: 1. Non-oliguric KACY likely prerenal from dehydration and NPO. IVF discontinued, tolerting diet and liquids today. Possible underlying obstructive as well given CT showing bilateral hydronpehrosis which is chronic. Creatinine elevated and stable today at 1.6. 2. Hypernatremia due to NPO and dehydration. 3. Acute Diverticulitis 4. Bilateral chronic hydronephrosis with distended thickened bladder. Plan: Ok to hold off on furhter IVF given he is tolerating PO and fluids. Urology following, plan for outpatient cystoscopy. Daily BMP and strict I/O's UA from 06/04 no active sediment May have underlying CKD from chronic hydro, would benefit from outpatient follow-up.
--- NOTE | 2023-06-06 15:54 | P.PN ---
Subjective Progress Note Date: 06/06/23 DIPTI. No N/V. No F/C. NO SOB or CP. Ambulatory and voiding. Admits to flatus, and BM. No melena or hematochezia. He states that his abdominal pain is much improved compared to prior. Objective - Vital Signs Vital signs: Vital Signs Temp 98.6 F 06/06/23 14:04 Pulse 71 06/06/23 14:04 Resp 18 06/06/23 14:04 BP 130/93 06/06/23 14:04 Pulse Ox 98 06/06/23 14:04 FiO2 Intake & Output 06/05/23 06/06/23 06/06/23 18:59 06:59 18:59 Output Total 243 Balance -243 Output: Post Void Residual 243 Other: Voiding Method Toilet Toilet # Voids 4 3 3 - Exam Gen: AxO, NAD Pulm: non-labored respirations Abd: soft, mildly-tender in LLQ, non-distended. No guarding/rebound/rigidity Extrem: no edema seen - Labs CBC & Chem 7: 06/06/23 06:05 06/06/23 06:05 Labs: Abnormal Lab Results - Last 24 Hours (Table) 06/05/23 06/06/23 06/06/23 Range/Units 15:10 06:05 06:05 WBC 12.42 H (4.50-10.00) X 10*3/uL MCH 26.5 L (27.0-32.0) pg MCHC 31.2 L (32.0-37.0) g/dL RDW 15.5 H (11.5-14.5) % Neutrophils # 9.55 H (1.80-7.70) X 10*3/uL Eosinophils # 0.03 L (0.04-0.35) X 10*3/uL Sodium 164 H* 159 H (137-145) mmol/L Chloride 125 H 120 H (98-107) mmol/L Anion Gap 12.40 H (4.00-12.00) mmol/L Creatinine 1.64 H 1.6 H (0.66-1.25) mg/dL Est GFR (CKD-EPI) 59 L (>=60) BUN/Creatinine Ratio 9.94 L (12.00-20.00) Ratio Glucose 104 H (74-99) mg/dL Calcium 10.3 H (8.4-10.2) mg/dL Globulin 3.8 H (1.6-3.3) g/dL Albumin/Globulin Ratio 1.00 L (1.60-3.17) Ratio Microbiology - Last 24 Hours (Table) 06/04/23 13:31 Blood Culture - Preliminary Blood 06/04/23 13:54 Blood Culture - Preliminary Blood Assessment and Plan Assessment: Patient is a 28 year old male who presents with perforated diverticulitits Plan: -CLD as tolerated -IVF hydration -IV abx -PRN pain and nausea control -Encourage ambulation -DVT/GI PPx -Serial abdominal examinations -No acute surgical intervention; will continue to follow closely Xavier Bailey MD General Surgery
--- NOTE | 2023-06-06 23:38 | P.PN ---
Subjective Progress Note Date: 06/06/23 Principal diagnosis: Reason for follow-up is diverticulitis with microperforation Patient is a 28-year-old male with no significant past medical history presenting to the ER increasing abdominal pain x 3 days, patient did have a CT of abdominal pelvis concerning for small bowel obstruction hydronephrosis and also evidence of diverticulitis with microperforation prompting this infectious disease consultation. On today's evaluation that is 06/06/2023, the patient denies having any fever or any chills, patient is breathing comfortably on room air, the patient denies h aving any chest pain shortness of breath , Pt did have occasional cough patient denies having any nausea vomiting diarrhea and abdominal pain. Patient white count is down to 12.42, creatinine is 1.6 blood cultures pending Objective - Vital Signs Vital signs: Vital Signs Temp 98.4 F 06/06/23 07:47 Pulse 75 06/06/23 07:47 Resp 18 06/06/23 07:47 BP 133/90 06/06/23 07:47 Pulse Ox 97 06/06/23 07:47 FiO2 Intake & Output 06/05/23 06/06/23 06/06/23 18:59 06:59 18:59 Output Total 243 Balance -243 Output: Post Void Residual 243 Other: Voiding Method Toilet # Voids 4 3 - Exam GENERAL DESCRIPTION: Middle-age male up in the chair in no distress RESPIRATORY SYSTEM: Unlabored breathing , decreased breath sounds at bases HEART: S1 S2 regular rate and rhythm , ABDOMEN: Soft , no tenderness EXTREMITIES: No edema feet - Labs CBC & Chem 7: 06/06/23 06:05 06/06/23 06:05 Labs: Abnormal Lab Results - Last 24 Hours (Table) 06/05/23 06/05/23 06/05/23 Range/Units 06:33 06:33 15:10 WBC 13.84 H (4.50-10.00) X 10*3/uL MCH (27.0-32.0) pg MCHC 31.8 L (32.0-37.0) g/dL RDW 15.3 H (11.5-14.5) % Neutrophils # 11.37 H (1.80-7.70) X 10*3/uL Eosinophils # 0 L (0.04-0.35) X 10*3/uL Sodium 158 H 164 H* (135-145) mmol/L Chloride 119 H 125 H (96-109) mmol/L Anion Gap 14.50 H (4.00-12.00) mmol/L Creatinine 1.64 H (0.66-1.25) mg/dL Est GFR (CKD-EPI) (>=60) BUN/Creatinine Ratio 9.40 L (12.00-20.00) Ratio Glucose 104 H (74-99) mg/dL Calcium 10.3 H (8.4-10.2) mg/dL Globulin (1.6-3.3) g/dL Albumin/Globulin Ratio (1.60-3.17) Ratio 06/06/23 06/06/23 Range/Units 06:05 06:05 WBC 12.42 H (4.50-10.00) X 10*3/uL MCH 26.5 L (27.0-32.0) pg MCHC 31.2 L (32.0-37.0) g/dL RDW 15.5 H (11.5-14.5) % Neutrophils # 9.55 H (1.80-7.70) X 10*3/uL Eosinophils # 0.03 L (0.04-0.35) X 10*3/uL Sodium 159 H (135-145) mmol/L Chloride 120 H (96-109) mmol/L Anion Gap 12.40 H (4.00-12.00) mmol/L Creatinine 1.6 H (0.66-1.25) mg/dL Est GFR (CKD-EPI) 59 L (>=60) BUN/Creatinine Ratio 9.94 L (12.00-20.00) Ratio Glucose (74-99) mg/dL Calcium (8.4-10.2) mg/dL Globulin 3.8 H (1.6-3.3) g/dL Albumin/Globulin Ratio 1.00 L (1.60-3.17) Ratio Microbiology - Last 24 Hours (Table) 06/04/23 13:31 Blood Culture - Preliminary Blood 06/04/23 13:54 Blood Culture - Preliminary Blood Assessment and Plan (1) Sepsis Current Visit: Yes Status: Acute Code(s): A41.9 - SEPSIS, UNSPECIFIED ORGANISM SNOMED Code(s): 83602106 (2) Perforation of sigmoid colon due to diverticulitis Current Visit: Yes Status: Acute Code(s): K57.20 - DVTRCLI OF LG INT W PERFORATION AND ABSCESS W/O BLEEDING SNOMED Code(s): 8985515958314889 (3) COVID-19 Current Visit: Yes Status: Acute Code(s): U07.1 - COVID-19 SNOMED Code(s): 749486783 Plan: 1patient presented to hospital with abdominal pain and fever and this patient has been diagnosed with a small bowel obstruction in addition to evidence of sigmoid diverticulitis with microperforation but did not mention any zohaib abscess we will need to cover for enteric gram-negative both anaerobes and anaerobes 2patient did tested positive for COVID-19 currently do not have significant respiratory symptoms or hypoxemia so no need for steroids or remdesivir 3patient did have some clinical improvement and white count is trending down, patient to continue Zosyn 3.375 grams every 8 hour and will monitor clinical course closely Dictation was produced using [employer] dictation software. please excuse any grammatical, word or spelling errors. Time with Patient: Less than 30
--- NOTE | 2023-06-07 09:11 | P.PN ---
Subjective Progress Note Date: 06/07/23 Patient seen for follow up on WAYNE. Having some diarrhea but otherwise tolerating diet well. Vital signs are stable. General: NAD, AAOx3 HEENT: Atraumatic, neck supple LUNGS: CTAB, no W/R/R HEART: Rate and Rhythm are regular. ABDOMEN: Soft, non-tender, non-distended, obese EXTREMITITES: No edema. Objective - Vital Signs Vital signs: Vital Signs Temp 97.6 F 06/07/23 06:55 Pulse 61 06/07/23 06:55 Resp 18 06/07/23 06:55 BP 133/84 06/07/23 06:55 Pulse Ox 100 06/07/23 06:55 FiO2 Intake & Output 06/06/23 06/07/23 06/07/23 18:59 06:59 18:59 Intake Total 420 Balance 420 Intake: Oral 420 Other: Voiding Method Toilet Toilet # Voids 3 3 # Bowel Movements 1 - Labs CBC & Chem 7: 06/06/23 06:05 06/07/23 06:11 Labs: Abnormal Lab Results - Last 24 Hours (Table) 06/06/23 06/06/23 Range/Units 06:05 06:05 WBC 12.42 H (4.50-10.00) X 10*3/uL MCH 26.5 L (27.0-32.0) pg MCHC 31.2 L (32.0-37.0) g/dL RDW 15.5 H (11.5-14.5) % Neutrophils # 9.55 H (1.80-7.70) X 10*3/uL Eosinophils # 0.03 L (0.04-0.35) X 10*3/uL Sodium 159 H (135-145) mmol/L Chloride 120 H (96-109) mmol/L Anion Gap 12.40 H (4.00-12.00) mmol/L Creatinine 1.6 H (0.6-1.5) mg/dL Est GFR (CKD-EPI) 59 L (>=60) BUN/Creatinine Ratio 9.94 L (12.00-20.00) Ratio Globulin 3.8 H (1.6-3.3) g/dL Albumin/Globulin Ratio 1.00 L (1.60-3.17) Ratio Microbiology - Last 24 Hours (Table) 06/04/23 13:31 Blood Culture - Preliminary Blood 06/04/23 13:54 Blood Culture - Preliminary Blood Assessment and Plan Plan: Assessment: 1. Non-oliguric WAYNE likely prerenal from dehydration and NPO. IVF discontinued, tolerting diet and liquids today. Possible underlying obstructive as well given CT showing bilateral hydronpehrosis which is chronic. Creatinine elevated and stable today at 1.7. 2. Hypernatremia due to NPO and dehydration. 3. Acute Diverticulitis 4. Bilateral chronic hydronephrosis with distended thickened bladder. Plan: Sodium improving with PO intake, no need for IVF. Urology following, plan for outpatient cystoscopy. Encourage continue PO intake. Daily BMP and strict I/O's UA from 06/04 no active sediment May have underlying CKD from chronic hydro, would benefit from outpatient follow-up.
[2023-06-07 11:04] LABS: BUN/Creat Ratio 6.24 Ratio (12.00-20.00); Blood Urea Nitrogen 10.6 mg/dL (9.0-27.0); Calcium 9.8 mg/dL (8.7-10.3); Carbon Dioxide 27.6 mmol/L (21.6-31.8); Chloride 106 mmol/L (96-109); Glucose 90 mg/dL (70-110); Potassium 3.5 mmol/L (3.5-5.5); Sodium 147 mmol/L (135-145)
[2023-06-07 11:58] LABS: Basophils # (A) 0.07 X 10*3/uL (0.00-0.10); Basophils % (A) 0.5 %; Eosinophils # (A) 0.19 X 10*3/uL (0.04-0.35); Eosinophils % (A) 1.5 %; HCT 49.5 % (39.6-50.0); HGB 15.2 g/dL (13.0-17.0); Lymphocytes % (A) 22.7 %; MCH 26.5 pg (27.0-32.0); MCHC 30.7 g/dL (32.0-37.0); MCV 86.2 FL (80.0-97.0); Mean Platelet Volume 10.6 FL (9.5-12.2); Monocytes # (A) 0.59 X 10*3/uL (0.20-1.00); Monocytes % (A) 4.6 %; NRBC Per 100 WBC 0 X 10*3/uL (0.00-0.01); Neutrophils # (A) 8.96 X 10*3/uL (1.80-7.70); Neutrophils % (A) 70.3 %; Platelet Count 458 X 10*3/uL (140-440); RBC 5.74 X 10*6/uL (4.40-5.60); RDW 15.3 % (11.5-14.5); WBC 12.76 X 10*3/uL (4.50-10.00)
--- NOTE | 2023-06-07 12:25 | P.PN ---
Subjective Progress Note Date: 06/07/23 Principal diagnosis: Diverticulitis Patient says he feels better. White blood cell count remains elevated at 12. Abdominal x-rays yesterday showed persistent dilated small bowel loops. He says he is having bowel function. Denies nausea or vomiting. No significant pain. Objective - Vital Signs Vital signs: Vital Signs Temp 97.6 F 06/07/23 06:55 Pulse 61 06/07/23 06:55 Resp 18 06/07/23 06:55 BP 133/84 06/07/23 06:55 Pulse Ox 100 06/07/23 06:55 FiO2 Intake & Output 06/06/23 06/07/23 06/07/23 18:59 06:59 18:59 Intake Total 420 Balance 420 Intake: Oral 420 Other: Voiding Method Toilet Toilet Toilet # Voids 3 3 # Bowel Movements 1 - Exam Abdomen: Soft, nondistended, mild tenderness right left lower quadrant, incarcerated umbilical hernia persists - Labs CBC & Chem 7: 06/07/23 06:11 06/07/23 06:11 Labs: Abnormal Lab Results - Last 24 Hours (Table) 06/07/23 06/07/23 Range/Units 06:11 06:11 WBC 12.76 H (4.50-10.00) X 10*3/uL RBC 5.74 H (4.40-5.60) X 10*6/uL MCH 26.5 L (27.0-32.0) pg MCHC 30.7 L (32.0-37.0) g/dL RDW 15.3 H (11.5-14.5) % Plt Count 458 H (140-440) X 10*3/uL Immature Gran # 0.05 H (0.00-0.04) X 10*3/uL Neutrophils # 8.96 H (1.80-7.70) X 10*3/uL Sodium 147 H (135-145) mmol/L Anion Gap 13.40 H (4.00-12.00) mmol/L Creatinine 1.7 H (0.6-1.5) mg/dL Est GFR (CKD-EPI) 55 L (>=60) BUN/Creatinine Ratio 6.24 L (12.00-20.00) Ratio Microbiology - Last 24 Hours (Table) 06/04/23 13:31 Blood Culture - Preliminary Blood 06/04/23 13:54 Blood Culture - Preliminary Blood Assessment and Plan (1) Perforation of sigmoid colon due to diverticulitis Narrative/Plan: 28-year-old male with perforated sigmoid diverticulitis with secondary small bowel obstruction or ileus. Patient's x-ray still shows dilated small bowel loops. Clinically he looks much better than that. We will order repeat CAT scan abdomen pelvis with oral contrast for tomorrow. Continue antibiotics. Current Visit: Yes Status: Acute Code(s): K57.20 - DVTRCLI OF LG INT W PERFORATION AND ABSCESS W/O BLEEDING SNOMED Code(s): 7727194994298833
--- NOTE | 2023-06-07 16:09 | P.PN ---
Subjective Progress Note Date: 06/07/23 Principal diagnosis: Reason for follow-up is diverticulitis with microperforation Patient is a 28-year-old male with no significant past medical history presenting to the ER increasing abdominal pain x 3 days, patient did have a CT of abdominal pelvis concerning for small bowel obstruction hydronephrosis and also evidence of diverticulitis with microperforation prompting this infectious disease consultation. On today's evaluation that is 06/07/2023, the patient remains to be afebrile, patient is breathing comfortably on room air and no need for supplemental oxyge n, the patient denies chest pain shortness of breath or cough, patient abdominal discomfort has decreased in intensity denies any nausea no vomiting having some bowel movements no blood or mucus in the stool. Patient white count is 12.76, creatinine is 1.7 blood culture so far pending Objective - Vital Signs Vital signs: Vital Signs Temp 99.0 F 06/07/23 14:49 Pulse 73 06/07/23 14:49 Resp 18 06/07/23 14:49 BP 131/84 06/07/23 14:49 Pulse Ox 98 06/07/23 14:49 FiO2 Intake & Output 06/06/23 06/07/23 06/07/23 18:59 06:59 18:59 Intake Total 420 Balance 420 Intake: Oral 420 Other: Voiding Method Toilet Toilet Toilet # Voids 3 3 3 # Bowel Movements 1 - Exam GENERAL DESCRIPTION: Middle-age male up in the chair in no distress RESPIRATORY SYSTEM: Unlabored breathing , decreased breath sounds at bases HEART: S1 S2 regular rate and rhythm , ABDOMEN: Soft , no tenderness EXTREMITIES: No edema feet - Labs CBC & Chem 7: 06/07/23 06:11 06/07/23 06:11 Labs: Abnormal Lab Results - Last 24 Hours (Table) 06/07/23 06/07/23 Range/Units 06:11 06:11 WBC 12.76 H (4.50-10.00) X 10*3/uL RBC 5.74 H (4.40-5.60) X 10*6/uL MCH 26.5 L (27.0-32.0) pg MCHC 30.7 L (32.0-37.0) g/dL RDW 15.3 H (11.5-14.5) % Plt Count 458 H (140-440) X 10*3/uL Immature Gran # 0.05 H (0.00-0.04) X 10*3/uL Neutrophils # 8.96 H (1.80-7.70) X 10*3/uL Sodium 147 H (135-145) mmol/L Anion Gap 13.40 H (4.00-12.00) mmol/L Creatinine 1.7 H (0.6-1.5) mg/dL Est GFR (CKD-EPI) 55 L (>=60) BUN/Creatinine Ratio 6.24 L (12.00-20.00) Ratio Microbiology - Last 24 Hours (Table) 06/04/23 13:31 Blood Culture - Preliminary Blood 06/04/23 13:54 Blood Culture - Preliminary Blood Assessment and Plan (1) Sepsis Current Visit: Yes Status: Acute Code(s): A41.9 - SEPSIS, UNSPECIFIED ORGANISM SNOMED Code(s): 74354010 (2) Perforation of sigmoid colon due to diverticulitis Current Visit: Yes Status: Acute Code(s): K57.20 - DVTRCLI OF LG INT W PERFORATION AND ABSCESS W/O BLEEDING SNOMED Code(s): 3659940857018786 (3) COVID-19 Current Visit: Yes Status: Acute Code(s): U07.1 - COVID-19 SNOMED Code(s): 540364170 Plan: 1patient presented to hospital with abdominal pain and fever and this patient has been diagnosed with a small bowel obstruction in addition to evidence of sigmoid diverticulitis with microperforation but did not mention any zohaib abscess we will need to cover for enteric gram-negative both anaerobes and anaerobes 2patient did tested positive for COVID-19 currently do not have significant respiratory symptoms or hypoxemia so no need for steroids or remdesivir 3patient slowly clinical improving, patient to continue Zosyn 3.375 grams every 8 hour with a plan for repeat CAT scan tomorrow results will be followed questions were answered Dictation was produced using [employer] software. please excuse any grammatical, word or spelling errors. Time with Patient: Less than 30
--- NOTE | 2023-06-08 00:55 | P.PN ---
Subjective Progress Note Date: 06/06/23 This is a 28-year-old male who presented to the emergency department with fevers and abdominal pain. Patient reports that the pain had been progressively becoming more worse over the last few days and he does have a noted umbilical hernia history and the site was painful and patient had associated fevers. Patient with no significant past medical history and reports has not followed up with a primary care provider in years although Dr. Holley was his last primary care provider. Patient reports he does use marijuana daily including vaping and denies smoking and denies alcohol use. Patient underwent an abdominal CT that was noted to have some inflammatory changes that are also adjacent to the sigm oid colon in the left lower quadrant with a couple of small loculated tiny amount of free air that may be present in that region with acute diverticulitis with small perforation that could be considered. Also noted to have a small bowel obstruction from loops or bowel within the anterior abdominal wall hernia with prominent hydronephrosis present bilaterally with hydroureter and obstructing etiology however not identified of note this was present previously and appears increased from previous imaging and there is a diffusely thickened urinary bladder wall. Patient was seen and evaluated briefly by urology and is having no difficulties with urination and reports this is chronic since 2020 and has also been instructed to follow-up outpatient for cystoscopy. Patient was started on Antibiotics in the form of Zosyn and pain management with IV hydration admitted under surgery for diverticulitis. Patient is currently n.p.o. and infectious diseases also consulted. Labs revealed a white count of 16.5, hemoglobin 15.0, sodium was 141 with a potassium of 3.8, creatinine mildly elevated at 1.28, total bili is 1.4, urinalysis was negative, patient is positive for COVID. 06/06/2023 Patient is currently sitting in the chair. Awake alert and oriented x 3. Able to pass flatus. No bowel meant yet. No complaints of abdominal pain. No fever no chills. No headache or dizziness or lightheadedness. Patient remains on antibiotics in the form of Zosyn. Otherwise laboratory data showed WBC 12.4 hemoglobin 14.3 and platelets 420 Sodium improved to 159 from 164 yesterday BUN 15.9 and creatinine 1.6. Patient is tolerating oral diet. IV fluids on hold. Nephrology neurology is on board. Current medications reviewed. REVIEW OF SYSTEMS: CONSTITUTIONAL: No fever, no malaise, no fatigue. HEENT: No recent visual problems or hearing problems. Denied any sore throat. CARDIOVASCULAR: No chest pain, orthopnea, PND, no palpitations, no syncope. PULMONARY: No shortness of breath, no cough, no hemoptysis. GASTROINTESTINAL: No diarrhea, no nausea, no vomiting, reports lower abdominal pain. NEUROLOGICAL: No headaches, no weakness, no numbness. HEMATOLOGICAL: Denies any bleeding or petechiae. GENITOURINARY: Denies any burning micturition, frequency, or urgency. MUSCULOSKELETAL/RHEUMATOLOGICAL: Denies any joint pain, swelling, or any muscle pain. ENDOCRINE: Denies any polyuria or polydipsia. The rest of the 14-point review of systems is negative. PHYSICAL EXAMINATION: GENERAL: The patient is alert and oriented x3, not in any acute distress. Well developed, well nourished. Morbidly obese HEENT: Pupils are round and equally reacting to light. EOMI. No scleral icterus. No conjunctival pallor. Normocephalic, atraumatic. No pharyngeal erythema. No thyromegaly. CARDIOVASCULAR: S1 and S2 present. No murmurs, rubs, or gallops. PULMONARY: Chest is clear to auscultation, no wheezing or crackles. ABDOMEN: Soft, obese nontender, nondistended, normoactive bowel sounds. No palpable organomegaly. MUSCULOSKELETAL: No joint swelling or deformity. EXTREMITIES: No cyanosis, clubbing, or pedal edema. NEUROLOGICAL: Gross neurological examination did not reveal any focal deficits. SKIN: No rashes. Assessment: Abdominal pain with fevers, secondary to acute diverticulitis as noted on CT with microperforation and possible bowel obstruction Nonoliguric acute kidney injury likely vasomotor nephropathy on possible CKD due to chronic bilateral hydronephrosis. Hypernatremia due to dehydration volume depletion. Morbid obesity with a body mass index of 46.1 Bilateral hydronephrosis as noted on CT, evaluated by urology recommending outpatient cystoscopy Acute COVID-19 infection Leukocytosis secondary to assessment #1 Daily marijuana use including vaping Noncompliance to medical care, has not been seen by a primary care provider in years DVT prophylaxis GI prophylaxis Full code Plan: Patient was started on antibiotics and admitted to general surgery with infectious disease on consulted for acute diverticulitis with microperforation and possible bowel obstruction Patient was seen and evaluated by urology with concerns of bilateral hydronephr osis noted on CT and patient denies having any pain or difficulty with urination and reports was told of this years ago about stricture although having no difficulties. Urology recommending outpatient follow-up with cystoscopy Continue n.p.o. for now per surgery recommendations Sodium level improved to 158 with IV hydration. Otherwise patient is tolerating oral diet and nephrology recommends to continue oral intake and follow-up repeat BMP tomorrow. We will continue to follow with general surgery and make further recommendations. Objective - Vital Signs Vital signs: Vital Signs Temp 98.6 F 06/06/23 14:04 Pulse 71 06/06/23 14:04 Resp 18 06/06/23 14:04 BP 130/93 06/06/23 14:04 Pulse Ox 98 06/06/23 14:04 FiO2 Intake & Output 06/06/23 06/06/23 06/07/23 06:59 18:59 06:59 Other: Voiding Method Toilet Toilet Toilet # Voids 3 3 - Labs CBC & Chem 7: 06/07/23 06:11 06/07/23 06:11 Labs: Abnormal Lab Results - Last 24 Hours (Table) 06/06/23 06/06/23 Range/Units 06:05 06:05 WBC 12.42 H (4.50-10.00) X 10*3/uL MCH 26.5 L (27.0-32.0) pg MCHC 31.2 L (32.0-37.0) g/dL RDW 15.5 H (11.5-14.5) % Neutrophils # 9.55 H (1.80-7.70) X 10*3/uL Eosinophils # 0.03 L (0.04-0.35) X 10*3/uL Sodium 159 H (135-145) mmol/L Chloride 120 H (96-109) mmol/L Anion Gap 12.40 H (4.00-12.00) mmol/L Creatinine 1.6 H (0.6-1.5) mg/dL Est GFR (CKD-EPI) 59 L (>=60) BUN/Creatinine Ratio 9.94 L (12.00-20.00) Ratio Globulin 3.8 H (1.6-3.3) g/dL Albumin/Globulin Ratio 1.00 L (1.60-3.17) Ratio Microbiology - Last 24 Hours (Table) 06/04/23 13:31 Blood Culture - Preliminary Blood 06/04/23 13:54 Blood Culture - Preliminary Blood
--- NOTE | 2023-06-08 00:59 | P.PN ---
Subjective Progress Note Date: 06/07/23 This is a 28-year-old male who presented to the emergency department with fevers and abdominal pain. Patient reports that the pain had been progressively becoming more worse over the last few days and he does have a noted umbilical hernia history and the site was painful and patient had associated fevers. Patient with no significant past medical history and reports has not followed up with a primary care provider in years although Dr. Holley was his last primary care provider. Patient reports he does use marijuana daily including vaping and denies smoking and denies alcohol use. Patient underwent an abdominal CT that was noted to have some inflammatory changes that are also adjacent to the sigm oid colon in the left lower quadrant with a couple of small loculated tiny amount of free air that may be present in that region with acute diverticulitis with small perforation that could be considered. Also noted to have a small bowel obstruction from loops or bowel within the anterior abdominal wall hernia with prominent hydronephrosis present bilaterally with hydroureter and obstructing etiology however not identified of note this was present previously and appears increased from previous imaging and there is a diffusely thickened urinary bladder wall. Patient was seen and evaluated briefly by urology and is having no difficulties with urination and reports this is chronic since 2020 and has also been instructed to follow-up outpatient for cystoscopy. Patient was started on Antibiotics in the form of Zosyn and pain management with IV hydration admitted under surgery for diverticulitis. Patient is currently n.p.o. and infectious diseases also consulted. Labs revealed a white count of 16.5, hemoglobin 15.0, sodium was 141 with a potassium of 3.8, creatinine mildly elevated at 1.28, total bili is 1.4, urinalysis was negative, patient is positive for COVID. 06/06/2023 Patient is currently sitting in the chair. Awake alert and oriented x 3. Able to pass flatus. No bowel meant yet. No complaints of abdominal pain. No fever no chills. No headache or dizziness or lightheadedness. Patient remains on antibiotics in the form of Zosyn. Otherwise laboratory data showed WBC 12.4 hemoglobin 14.3 and platelets 420 Sodium improved to 159 from 164 yesterday BUN 15.9 and creatinine 1.6. Patient is tolerating oral diet. IV fluids on hold. Nephrology neurology is on board. 06/07/2023 Patient is resting in the bed. Awake alert and oriented x 3. No complaints of abdominal pain. Patient did have a small bowel movement today. Otherwise afebrile. Continued on IV antibiotics, Zosyn. Sodium level improved to 147. Patient is tolerating oral diet. Otherwise BUN 10.6 and creatinine 1.7. Laboratory data showed WBC 12.7 hemoglobin 15.3 and platelets 458. Patient denied any cough or sputum production. Denies chest pain or shortness of breath. Current medications reviewed. REVIEW OF SYSTEMS: CONSTITUTIONAL: No fever, no malaise, no fatigue. HEENT: No recent visual problems or hearing problems. Denied any sore throat. CARDIOVASCULAR: No chest pain, orthopnea, PND, no palpitations, no syncope. PULMONARY: No shortness of breath, no cough, no hemoptysis. GASTROINTESTINAL: No diarrhea, no nausea, no vomiting, reports lower abdominal pain. NEUROLOGICAL: No headaches, no weakness, no numbness. HEMATOLOGICAL: Denies any bleeding or petechiae. GENITOURINARY: Denies any burning micturition, frequency, or urgency. MUSCULOSKELETAL/RHEUMATOLOGICAL: Denies any joint pain, swelling, or any muscle pain. ENDOCRINE: Denies any polyuria or polydipsia. The rest of the 14-point review of systems is negative. PHYSICAL EXAMINATION: GENERAL: The patient is alert and oriented x3, not in any acute distress. Well developed, well nourished. Morbidly obese HEENT: Pupils are round and equally reacting to light. EOMI. No scleral icterus. No conjunctival pallor. Normocephalic, atraumatic. No pharyngeal erythema. No thyromegaly. CARDIOVASCULAR: S1 and S2 present. No murmurs, rubs, or gallops. PULMONARY: Chest is clear to auscultation, no wheezing or crackles. ABDOMEN: Soft, obese nontender, nondistended, normoactive bowel sounds. No palpable organomegaly. MUSCULOSKELETAL: No joint swelling or deformity. EXTREMITIES: No cyanosis, clubbing, or pedal edema. NEUROLOGICAL: Gross neurological examination did not reveal any focal deficits. SKIN: No rashes. Assessment: Abdominal pain with fevers, secondary to acute diverticulitis as noted on CT with microperforation and possible bowel obstruction Nonoliguric acute kidney injury likely vasomotor nephropathy on possible CKD due to chronic bilateral hydronephrosis. Hypernatremia due to dehydration volume depletion. Morbid obesity with a body mass index of 46.1 Bilateral hydronephrosis as noted on CT, evaluated by urology recommending outpatient cystoscopy Acute COVID-19 infection Leukocytosis secondary to assessment #1 Daily marijuana use including vaping Noncompliance to medical care, has not been seen by a primary care provider in years DVT prophylaxis GI prophylaxis Full code Plan: Patient was started on antibiotics and admitted to general surgery with infectious disease on consulted for acute diverticulitis with microperforation and possible bowel obstruction Patient was seen and evaluated by urology with concerns of bilateral hydronephrosis noted on CT and patient denies having any pain or difficulty with urination and reports was told of this years ago about stricture although having no difficulties. Urology recommending outpatient follow-up with cystoscopy Continue n.p.o. for now per surgery recommendations Sodium level improved to 147 Otherwise patient is tolerating oral diet and nephrology recommends to continue oral intake and follow-up repeat BMP tomorrow. We will continue to follow with general surgery and make further recommendations. Objective - Vital Signs Vital signs: Vital Signs Temp 97.6 F 06/07/23 06:55 Pulse 61 06/07/23 06:55 Resp 18 06/07/23 06:55 BP 133/84 06/07/23 06:55 Pulse Ox 100 06/07/23 06:55 FiO2 Intake & Output 06/06/23 06/07/23 06/07/23 18:59 06:59 18:59 Intake Total 420 Balance 420 Intake: Oral 420 Other: Voiding Method Toilet Toilet Toilet # Voids 3 3 3 # Bowel Movements 1 - Labs CBC & Chem 7: 06/07/23 06:11 06/07/23 06:11 Labs: Abnormal Lab Results - Last 24 Hours (Table) 06/07/23 06/07/23 Range/Units 06:11 06:11 WBC 12.76 H (4.50-10.00) X 10*3/uL RBC 5.74 H (4.40-5.60) X 10*6/uL MCH 26.5 L (27.0-32.0) pg MCHC 30.7 L (32.0-37.0) g/dL RDW 15.3 H (11.5-14.5) % Plt Count 458 H (140-440) X 10*3/uL Immature Gran # 0.05 H (0.00-0.04) X 10*3/uL Neutrophils # 8.96 H (1.80-7.70) X 10*3/uL Sodium 147 H (135-145) mmol/L Anion Gap 13.40 H (4.00-12.00) mmol/L Creatinine 1.7 H (0.6-1.5) mg/dL Est GFR (CKD-EPI) 55 L (>=60) BUN/Creatinine Ratio 6.24 L (12.00-20.00) Ratio Microbiology - Last 24 Hours (Table) 06/04/23 13:31 Blood Culture - Preliminary Blood 06/04/23 13:54 Blood Culture - Preliminary Blood
[2023-06-08] MEDS: IOPAMIDOL CONTRAST (ORAL USE) VIAL PO PRN (08:29)
[2023-06-08 08:48] LABS: Basophils # (A) 0.04 X 10*3/uL (0.00-0.10); Basophils % (A) 0.4 %; Eosinophils % (A) 1.8 %; HCT 45.6 % (39.6-50.0); HGB 14.5 g/dL (13.0-17.0); Lymphocytes # (A) 2.19 X 10*3/uL (0.90-5.00); Lymphocytes % (A) 20.2 %; MCH 26.9 pg (27.0-32.0); MCHC 31.8 g/dL (32.0-37.0); MCV 84.6 FL (80.0-97.0); Mean Platelet Volume 10.7 FL (9.5-12.2); Monocytes # (A) 0.71 X 10*3/uL (0.20-1.00); Monocytes % (A) 6.6 %; NRBC Per 100 WBC 0 X 10*3/uL (0.00-0.01); Neutrophils # (A) 7.63 X 10*3/uL (1.80-7.70); Neutrophils % (A) 70.5 %; Platelet Count 382 X 10*3/uL (140-440); RBC 5.39 X 10*6/uL (4.40-5.60); RDW 14.6 % (11.5-14.5); WBC 10.82 X 10*3/uL (4.50-10.00)
[2023-06-08 09:05] LABS: BUN/Creat Ratio 4.25 Ratio (12.00-20.00); Blood Urea Nitrogen 6.8 mg/dL (9.0-27.0); Calcium 9.4 mg/dL (8.7-10.3); Carbon Dioxide 27.1 mmol/L (21.6-31.8); Chloride 107 mmol/L (96-109); Glucose 90 mg/dL (70-110); Potassium 3.8 mmol/L (3.5-5.5); Sodium 145 mmol/L (135-145)
--- NOTE | 2023-06-08 10:30 | CT ---
EXAMINATION TYPE: CT abdomen pelvis w con DATE OF EXAM: 06/08/2023 COMPARISON: 06/04/2023 HISTORY: Follow up on SBO CT DLP: 2551.4 mGycm CONTRAST: CT scan of the abdomen and pelvis is performed with Oral Contrast and with IV Contrast, patient injec lyn with 100 ml mL of Isovue 300. FINDINGS: LUNG BASES-: No visible nodule. No infiltrate. LIVER/GB: No calcified gallstones. There is evidence of hepatic steatosis mild degree. No space oc cupying hepatic lesion. Biliary tree is of normal caliber. PANCREAS: No inflammation. No distinct mass. SPLEEN: No splenic enlargement. No lesion seen. ADRENALS: No nodule. No thickening. KIDNEYS/BLADDER: Severe bilateral hydronephrosis persists unchanged from prior study. There is diffus e urinary bladder wall thickening also stable complex cystitis. Neoplasm not excluded. BOWEL: Dilated small bowel persists measuring up to 4.6 cm predominantly within the left hemiabdomen. Mesenteric edema appears to have improved however. More distal loops appear to be normalized at this time. There is continued strandy attenuation adjacent to the sigmoid colon which could reflect under lying diverticulitis. Anteriorly there is a fluid collection seen on image 78 measuring 5 cm which co uld reflect focal ascites or abscess is not excluded.Large umbilical hernia contains a short segment of large bowel with underlying strangulation difficult to exclude. GENITAL ORGANS: No gross abnormality. LYMPH NODES: No greater than 1cm abdominal or pelvic lymph nodes are appreciated. AORTA: No significant abnormality. OSSEOUS STRUCTURES: No significant abnormality is seen. OTHER: No significant additional abnormality is seen. IMPRESSION: 1. Persistent dilated small bowel improved edema of the small bowel mesentery. More distal loops appe ar to have normalized in the interval. 2. Persistent umbilical hernia with segment of large bowel and mild stranding within the hernia sac c ould reflect a degree of strangulation. Correlate clinically. 3. Strandy attenuation persists adjacent to the sigmoid colon which could reflect underlying divertic ulitis. Anteriorly there is a fluid collection seen on image 78 measuring 5 cm which could reflect fo amrik ascites or abscess is not excluded. # 4. persistent severe hydronephrosis with urinary bladder wall thickening as discussed above.
--- NOTE | 2023-06-08 11:56 | P.PN ---
Subjective Patient is seen for follow-up for acute kidney injury. Renal function has improved slightly with creatinine down to 1.6. Sodium has decreased to 145 today. Tolerating oral intake. No significant complaints today. Objective - Vital Signs Vital signs: Vital Signs Temp 98.2 F 06/08/23 07:11 Pulse 74 06/08/23 07:11 Resp 18 06/08/23 07:11 BP 126/87 06/08/23 07:11 Pulse Ox 96 06/08/23 07:11 FiO2 Intake & Output 06/07/23 06/08/23 06/08/23 18:59 06:59 18:59 Intake Total 1350 Balance 1350 Intake: Oral 1350 Other: Voiding Method Toilet Toilet # Voids 4 2 # Bowel Movements 1 - Exam Patient is awake, comfortable, no acute distress Examination of the heart S1 and S2 Examination of the lungs bilateral breath sounds are heard Abdomen is soft nontender, obese Examination of lower extremities shows no significant edema 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 - Labs CBC & Chem 7: 06/08/23 06:18 06/08/23 06:18 Labs: Abnormal Lab Results - Last 24 Hours (Table) 06/07/23 06/08/23 06/08/23 Range/Units 06:11 06:18 06:18 WBC 12.76 H 10.82 H (4.50-10.00) X 10*3/uL RBC 5.74 H (4.40-5.60) X 10*6/uL MCH 26.5 L 26.9 L (27.0-32.0) pg MCHC 30.7 L 31.8 L (32.0-37.0) g/dL RDW 15.3 H 14.6 H (11.5-14.5) % Plt Count 458 H (140-440) X 10*3/uL Immature Gran # 0.05 H 0.05 H (0.00-0.04) X 10*3/uL Neutrophils # 8.96 H (1.80-7.70) X 10*3/uL BUN 6.8 L (9.0-27.0) mg/dL Creatinine 1.6 H (0.6-1.5) mg/dL Est GFR (CKD-EPI) 59 L (>=60) BUN/Creatinine Ratio 4.25 L (12.00-20.00) Ratio Microbiology - Last 24 Hours (Table) 06/04/23 13:31 Blood Culture - Preliminary Blood 06/04/23 13:54 Blood Culture - Preliminary Blood Assessment and Plan Assessment: 1. Non-oliguric WAYNE likely prerenal from dehydration and NPO. IVF discontinued, tolerting oral intake possible underlying obstructive as well given CT showing bilateral hydronpehrosis which is chronic. Creatinine elevated and stable today at 1.6. 2. Hypernatremia due to NPO and dehydration. Improving 3. Acute Diverticulitis 4. Bilateral chronic hydronephrosis with distended thickened bladder. Plan: Continue to encourage increase oral intake particularly fluids. Follow-up with urology as outpatient Follow-up as outpatient for CKD.
--- NOTE | 2023-06-08 13:36 | P.PN ---
Subjective Progress Note Date: 06/08/23 This is a 28-year-old male who presented to the emergency department with fevers and abdominal pain. Patient reports that the pain had been progressively becoming more worse over the last few days and he does have a noted umbilical hernia history and the site was painful and patient had associated fevers. Patient with no significant past medical history and reports has not followed up with a primary care provider in years although Dr. Holley was his last primary care provider. Patient reports he does use marijuana daily including vaping and denies smoking and denies alcohol use. Patient underwent an abdominal CT that was noted to have some inflammatory changes that are also adjacent to the si gmoid colon in the left lower quadrant with a couple of small loculated tiny amount of free air that may be present in that region with acute diverticulitis with small perforation that could be considered. Also noted to have a small bowel obstruction from loops or bowel within the anterior abdominal wall hernia with prominent hydronephrosis present bilaterally with hydroureter and obstructing etiology however not identified of note this was present previously and appears increased from previous imaging and there is a diffusely thickened urinary bladder wall. Patient was seen and evaluated briefly by urology and is having no difficulties with urination and reports this is chronic since 2020 and has also been instructed to follow-up outpatient for cystoscopy. Patient was started on Antibiotics in the form of Zosyn and pain management with IV hydration admitted under surgery for diverticulitis. Patient is currently n.p.o. and infectious diseases also consulted. Labs revealed a white count of 16.5, hemoglobin 15.0, sodium was 141 with a potassium of 3.8, creatinine mildly elevated at 1.28, total bili is 1.4, urinalysis was negative, patient is positive for COVID. 06/06/2023 Patient is currently sitting in the chair. Awake alert and oriented x 3. Able to pass flatus. No bowel meant yet. No complaints of abdominal pain. No fever no chills. No headache or dizziness or lightheadedness. Patient remains on antibiotics in the form of Zosyn. Otherwise laboratory data showed WBC 12.4 hemoglobin 14.3 and platelets 420 Sodium improved to 159 from 164 yesterday BUN 15.9 and creatinine 1.6. Patient is tolerating oral diet. IV fluids on hold. Nephrology neurology is on board. 06/07/2023 Patient is resting in the bed. Awake alert and oriented x 3. No complaints of abdominal pain. Patient did have a small bowel movement today. Otherwise afebrile. Continued on IV antibiotics, Zosyn. Sodium level improved to 147. Patient is tolerating oral diet. Otherwise BUN 10.6 and creatinine 1.7. Laboratory data showed WBC 12.7 hemoglobin 15.3 and platelets 458. Patient denied any cough or sputum production. Denies chest pain or shortness of breath. 06/08/2023 Patient is seen in follow-up today with multiple medical consultations following including nephrology, general surgery, infectious disease, neurology. Patient is continued on antibiotics in the form of Zosyn with infectious disease following. Blood cultures remain negative. Patient continues on clear liquids for now and repeat CT abdomen done this morning shows persistent dilated small bowel's with improved edema of the small bowel mesentery with more distal loops appear to have normalized with persistent umbilical hernia with a segment of large bowel and mild stranding within the hernia that could reflect a degree of strangulation, strandy attenuation persists adjacent to the sigmoid colon which could reflect diverticulitis and anteriorly there is a fluid collection measuring 5 cm and ascites or abscess is not excluded, persistent severe hydronephrosis with urinary bladder wall thickening persists. Patient is voiding with no difficulties and was evaluated by urology recommending outpatient follow-up. Sodium level is improved at 145 today, creatinine is 1.6 and potassium is 3.8. White count also trending down at 10.82 and patient is afebrile. Encouraged increase activity as tolerated. Review of systems: Constitutional: No reports of fatigue, fever, or chills Cardiovascular: No reports of chest pain or palpitations Respiratory: No reports of shortness of breath or cough GI: No reports of nausea, vomiting, or diarrhea, reports had a bowel movement : No reports of dysuria or retention Neurovascular: reports of generalized weakness All medications have been reviewed PHYSICAL EXAMINATION: GENERAL: The patient is alert and oriented x3. Well developed, well nourished. Morbidly obese HEENT: Pupils are round and equally reacting to light. EOMI. No scleral icterus. No conjunctival pallor. Normocephalic, atraumatic. No pharyngeal erythema. No thyromegaly. CARDIOVASCULAR: S1 and S2 present. No murmurs, rubs, or gallops. PULMONARY: Chest is clear to auscultation, no wheezing or crackles. ABDOMEN: Soft, obese nontender, nondistended, normoactive bowel sounds. No palpable organomegaly. MUSCULOSKELETAL: No joint swelling or deformity. EXTREMITIES: No cyanosis, clubbing, or pedal edema. NEUROLOGICAL: Gross neurological examination did not reveal any focal deficits. SKIN: No rashes. Assessment: Abdominal pain with fevers, secondary to acute diverticulitis as noted on CT with microperforation and possible bowel obstruction Nonoliguric acute kidney injury likely vasomotor nephropathy on possible CKD due to chronic bilateral hydronephrosis. Hypernatremia due to dehydration volume depletion. Improving currently 145 today Morbid obesity with a body mass index of 46.1 Bilateral hydronephrosis as noted on CT, evaluated by urology recommending outpatient cystoscopy Acute COVID-19 infection Leukocytosis secondary to assessment #1 Daily marijuana use including vaping Noncompliance to medical care, has not been seen by a primary care provider in years DVT prophylaxis GI prophylaxis Full code Plan: Patient was started on antibiotics and admitted to general surgery with infectious disease following for acute diverticulitis with microperforation and possible bowel obstruction. Repeat CT abdomen was done today as mentioned above Patient was seen and evaluated by urology with concerns of bilateral hydronephrosis noted on CT and patient denies having any pain or difficulty with urination and reports was told of this years ago about stricture although having no difficulties. Urology recommending outpatient follow-up with cystoscopy Patient is continued on clear liquids per surgery Nephrology following We will continue to follow with general surgery and make further recommendations. Thank you kindly for this consultation. The impression and plan of care has been dictated by Jayashree Leyva, Nurse Practitioner as directed. Dr. Santos MD I have performed a history and examination and MDM of this patient, discussed the same with the dictator, and agree with the dictator's assessment and plan as written ,documented as a scribe. Based on total visit time, I have performed more than 50% of the visit. Objective - Vital Signs Vital signs: Vital Signs Temp 98.2 F 06/08/23 07:11 Pulse 74 06/08/23 07:11 Resp 18 06/08/23 07:11 BP 126/87 06/08/23 07:11 Pulse Ox 96 06/08/23 07:11 FiO2 Intake & Output 0206/08/23 06/08/23 18:59 06:59 18:59 Intake Total 1350 Balance 1350 Intake: Oral 1350 Other: Voiding Method Toilet Toilet # Voids 4 2 # Bowel Movements 1 - Labs CBC & Chem 7: 06/08/23 06:18 06/08/23 06:18 Labs: Abnormal Lab Results - Last 24 Hours (Table) 06/07/23 06/07/23 06/08/23 Range/Units 06:11 06:11 06:18 WBC 12.76 H 10.82 H (4.50-10.00) X 10*3/uL RBC 5.74 H (4.40-5.60) X 10*6/uL MCH 26.5 L 26.9 L (27.0-32.0) pg MCHC 30.7 L 31.8 L (32.0-37.0) g/dL RDW 15.3 H 14.6 H (11.5-14.5) % Plt Count 458 H (140-440) X 10*3/uL Immature Gran # 0.05 H 0.05 H (0.00-0.04) X 10*3/uL Neutrophils # 8.96 H (1.80-7.70) X 10*3/uL Sodium 147 H (135-145) mmol/L Anion Gap 13.40 H (4.00-12.00) mmol/L BUN (9.0-27.0) mg/dL Creatinine 1.7 H (0.6-1.5) mg/dL Est GFR (CKD-EPI) 55 L (>=60) BUN/Creatinine Ratio 6.24 L (12.00-20.00) Ratio 06/08/23 Range/Units 06:18 WBC (4.50-10.00) X 10*3/uL RBC (4.40-5.60) X 10*6/uL MCH (27.0-32.0) pg MCHC (32.0-37.0) g/dL RDW (11.5-14.5) % Plt Count (140-440) X 10*3/uL Immature Gran # (0.00-0.04) X 10*3/uL Neutrophils # (1.80-7.70) X 10*3/uL Sodium (135-145) mmol/L Anion Gap (4.00-12.00) mmol/L BUN 6.8 L (9.0-27.0) mg/dL Creatinine 1.6 H (0.6-1.5) mg/dL Est GFR (CKD-EPI) 59 L (>=60) BUN/Creatinine Ratio 4.25 L (12.00-20.00) Ratio Microbiology - Last 24 Hours (Table) 06/04/23 13:31 Blood Culture - Preliminary Blood 06/04/23 13:54 Blood Culture - Preliminary Blood
--- NOTE | 2023-06-08 14:16 | P.PN ---
Subjective Progress Note Date: 06/08/23 CHIEF COMPLAINT: Perforation of the sigmoid colon HISTORY OF PRESENT ILLNESS: Patient is lying in bed. He reports that the left lower quadrant abdominal pain has improved. He rates his pain about a 1 out of 10. He did have episode of diarrhea. Denies any nausea or vomiting. He does have some pain at the umbilicus. Afebrile WBC is down from 12.76-10.82 Hgb 14.5 creatinine 1.6 sodium level improved at 145 CT scan abdomen pelvis reports persistent dilated small bowel improved edema of the small bowel mesentery. More distal loops appear to be normalized in the interval. Persistent umbilical hernia with segment of large bowel and mild stranding within the hernia sac could reflect a degree of strangulation. Strandy attenuation persists adjacent to the sigmoid colon which could reflect underlying diverticulitis. Anteriorly there is a fluid collection which could reflect a focal ascites or abscess not excluded. Persistent severe hydronephrosis with urinary bladder wall thickening PHYSICAL EXAM: VITAL SIGNS: Reviewed. GENERAL: Well-developed in no acute distress. ABDOMEN: Soft. Obese with large pannus, partially reducible umbilical hernia. Skin of umbilical hernia slightly darkened. tender at the umbilicus. Minimal tenderness left lower quadrant. NEUROLOGIC: Alert and oriented. Cranial nerves II through XII grossly intact. ASSESSMENT: 1. Perforated sigmoid diverticulitis now with fluid collection. Secondary small bowel obstruction or ileus 2. Bilateral hydronephrosis with probable incomplete bladder emptying. Patient seen by urology. Plans for outpatient cystoscopy 3. COVID-positive PLAN: -Further recommendations forthcoming per surgeon -Continue clear liquid diet -Continue antibiotics -Continue pain management -GI prophylaxis Pepcid and DVT prophylaxis subcu heparin Physician [employer] Driver note has been reviewed by physician. Signing provider agrees with the documented findings, assessment, and plan of care. I have personally seen and examined the patient, reviewed the [employer] /PAs history, exam and MDM and agree with the assessment and plan as written. Based on total visit time, I have performed more than 50% of the visit. As above: Overall patient feels fairly well. After the CAT scan had multiple loose stools. Tolerating clear liquids. CAT scan reviewed. Still with some proximal small bowel dilation. Still with inflammatory changes left mid and lower quadrants. The pericolonic gas collection inferior to the sigmoid colon loop is slightly larger. There is also a fluid collection superior and anterior to this that may be a developing abscess. He is afebrile. White blood cell count normal at 10.8. Clinical scenario reviewed. Options of surgery versus nonoperative approach reviewed. Will continue nonoperative approach for now given the patient's significant abdominal obesity and the likely need for colostomy if surgery is performed. Continue broad-spectrum antibiotics. Will consider short-term CAT scan to see if percutaneous drain placement would be beneficial. Currently not confident the fluid collection seen is organized enough to benefit. Patient is asking for more to eat. Advance to full liquids. Will follow closely. Objective - Vital Signs Vital signs: Vital Signs Temp 98.2 F 06/08/23 07:11 Pulse 74 06/08/23 07:11 Resp 18 06/08/23 07:11 BP 126/87 06/08/23 07:11 Pulse Ox 96 06/08/23 07:11 FiO2 Intake & Output 06/07/23 06/08/23 06/08/23 18:59 06:59 18:59 Intake Total 1350 Balance 1350 Intake: Oral 1350 Other: Voiding Method Toilet Toilet # Voids 4 2 # Bowel Movements 1 - Labs CBC & Chem 7: 06/08/23 06:18 06/08/23 06:18 Labs: Abnormal Lab Results - Last 24 Hours (Table) 06/08/23 06/08/23 Range/Units 06:18 06:18 WBC 10.82 H (4.50-10.00) X 10*3/uL MCH 26.9 L (27.0-32.0) pg MCHC 31.8 L (32.0-37.0) g/dL RDW 14.6 H (11.5-14.5) % Immature Gran # 0.05 H (0.00-0.04) X 10*3/uL BUN 6.8 L (9.0-27.0) mg/dL Creatinine 1.6 H (0.6-1.5) mg/dL Est GFR (CKD-EPI) 59 L (>=60) BUN/Creatinine Ratio 4.25 L (12.00-20.00) Ratio Microbiology - Last 24 Hours (Table) 06/04/23 13:31 Blood Culture - Preliminary Blood 06/04/23 13:54 Blood Culture - Preliminary Blood
[2023-06-08 15:37] VITALS: BMI 46.0
[2023-06-09 08:51] LABS: Basophils # (A) 0.1 k/uL (0-0.2); Basophils % (A) 0 %; Eosinophils # (A) 0.3 k/uL (0-0.7); Eosinophils % (A) 1 %; Lymphocytes # (A) 1.8 k/uL (1.0-4.8); Lymphocytes % (A) 9 %; MCH 27.2 pg (25.0-35.0); MCHC 32.7 g/dL (31.0-37.0); Mean Platelet Volume 8.3; Monocytes # (A) 0.9 k/uL (0-1.0); Monocytes % (A) 5 %; Neutrophils # (A) 16.7 k/uL (1.3-7.7); Neutrophils % (A) 84 %; Platelet Count 338 k/uL (150-450); RBC 5.54 m/uL (4.30-5.90); RDW 14.4 % (11.5-15.5); WBC 19.9 k/uL (3.8-10.6)
[2023-06-09 10:26] LABS: African American GFR (CKD) 82 (>60 ml/min/1.73 sqM); Anion Gap 9 mmol/L; Blood Urea Nitrogen 5 mg/dL (9-20); Calcium 9.2 mg/dL (8.4-10.2); Carbon Dioxide 27 mmol/L (22-30); Chloride 110 mmol/L (98-107); Glucose 117 mg/dL (74-99); Non-African American GFR(CKD) 71 (>60 ml/min/1.73 sqM); Potassium 3.4 mmol/L (3.5-5.1); Sodium 146 mmol/L (137-145)
--- NOTE | 2023-06-09 11:42 | P.PN ---
Subjective Patient is seen for follow-up for acute kidney injury. Renal function has improved slightly with creatinine down to 1.3. . Tolerating oral intake. No significant complaints today. Objective - Vital Signs Vital signs: Vital Signs Temp 99.3 F 06/09/23 07:23 Pulse 87 06/09/23 07:23 Resp 18 06/09/23 07:23 BP 103/75 06/09/23 07:23 Pulse Ox 94 L 06/09/23 07:23 FiO2 Intake & Output 06/08/23 06/09/23 06/09/23 18:59 06:59 18:59 Weight 154.221 kg Other: Voiding Method Toilet # Voids 3 6 - Exam Patient is awake, comfortable, no acute distress Examination of the heart S1 and S2 Examination of the lungs bilateral breath sounds are heard Abdomen is soft nontender, obese Examination of lower extremities shows no significant edema [employer] OPERATOR exam grossly intact - Labs CBC & Chem 7: 06/09/23 08:38 06/09/23 08:38 Labs: Abnormal Lab Results - Last 24 Hours (Table) 06/09/23 06/09/23 Range/Units 08:38 08:38 WBC 19.9 H (3.8-10.6) k/uL Neutrophils # 16.7 H (1.3-7.7) k/uL Sodium 146 H (137-145) mmol/L Potassium 3.4 L (3.5-5.1) mmol/L Chloride 110 H (98-107) mmol/L BUN 5 L (9-20) mg/dL Creatinine 1.34 H (0.66-1.25) mg/dL Glucose 117 H (74-99) mg/dL Assessment and Plan Assessment: 1. Non-oliguric WAYNE likely prerenal from dehydration and NPO. IVF discontinued, tolerting oral intake possible underlying obstructive as well given CT showing bilateral hydronpehrosis which is chronic. Creatinine decreased to 1.3 today. 2. Hypernatremia due to NPO and dehydration. Improving 3. Acute Diverticulitis 4. Bilateral chronic hydronephrosis with distended thickened bladder. Plans for cystoscopy as outpatient Plan: Continue to encourage increase oral intake particularly fluids. Follow-up with urology as outpatient Follow-up as outpatient for CKD.
--- NOTE | 2023-06-09 12:41 | P.PN ---
Subjective Progress Note Date: 06/08/23 Principal diagnosis: Reason for follow-up is diverticulitis with microperforation Patient is a 28-year-old male with no significant past medical history presenting to the ER increasing abdominal pain x 3 days, patient did have a CT of abdominal pelvis concerning for small bowel obstruction hydronephrosis and also evidence of diverticulitis with microperforation prompting this infectious disease consultation. On today's evaluation that is 06/08/2023, the patient continues to be afebrile, patient is breathing comfortably on room air, the patient denies chest pain shortness of breath and no significant cough, patient denies nausea no vomiting, abdominal pain has decreased in intensity and did have a bowel movement. Patient white count is 10.82, creatinine is 1.6, patient did have repeat CT dilated small bowels and there was question of possible focal ascites or abscess Objective - Vital Signs Vital signs: Vital Signs Temp 98.2 F 06/08/23 07:11 Pulse 74 06/08/23 07:11 Resp 18 06/08/23 07:11 BP 126/87 06/08/23 07:11 Pulse Ox 96 06/08/23 07:11 FiO2 Intake & Output 06/07/23 06/08/23 06/08/23 18:59 06:59 18:59 Intake Total 1350 Balance 1350 Intake: Oral 1350 Other: Voiding Method Toilet Toilet # Voids 4 2 # Bowel Movements 1 - Exam GENERAL DESCRIPTION: Middle-age male up in the chair in no distress RESPIRATORY SYSTEM: Unlabored breathing , decreased breath sounds at bases HEART: S1 S2 regular rate and rhythm , ABDOMEN: Soft , no tenderness EXTREMITIES: No edema feet - Labs CBC & Chem 7: 06/09/23 08:38 06/09/23 08:38 Labs: Abnormal Lab Results - Last 24 Hours (Table) 06/08/23 06/08/23 Range/Units 06:18 06:18 WBC 10.82 H (4.50-10.00) X 10*3/uL MCH 26.9 L (27.0-32.0) pg MCHC 31.8 L (32.0-37.0) g/dL RDW 14.6 H (11.5-14.5) % Immature Gran # 0.05 H (0.00-0.04) X 10*3/uL BUN 6.8 L (9.0-27.0) mg/dL Creatinine 1.6 H (0.6-1.5) mg/dL Est GFR (CKD-EPI) 59 L (>=60) BUN/Creatinine Ratio 4.25 L (12.00-20.00) Ratio Microbiology - Last 24 Hours (Table) 06/04/23 13:31 Blood Culture - Preliminary Blood 06/04/23 13:54 Blood Culture - Preliminary Blood Assessment and Plan (1) Sepsis Current Visit: Yes Status: Acute Code(s): A41.9 - SEPSIS, UNSPECIFIED ORGANISM SNOMED Code(s): 28090779 (2) Perforation of sigmoid colon due to diverticulitis Current Visit: Yes Status: Acute Code(s): K57.20 - DVTRCLI OF LG INT W PERFORATION AND ABSCESS W/O BLEEDING SNOMED Code(s): 6278508291282995 (3) COVID-19 Current Visit: Yes Status: Acute Code(s): U07.1 - COVID-19 SNOMED Code(s): 655768250 Plan: 1patient presented to hospital with abdominal pain and fever and this patient has been diagnosed with a small bowel obstruction in addition to evidence of sigmoid diverticulitis with microperforation but did not mention any zohaib abscess we will need to cover for enteric gram-negative both anaerobes and anaerobes 2patient did tested positive for COVID-19 currently do not have significant res piratory symptoms or hypoxemia so no need for steroids or remdesivir 3patient is afebrile white count is close to normal however the patient have significant abnormality on the CT abdominal pelvis await further recommendation from surgery for now continue with Zomehul Dictation was produced using [employer] software. please excuse any grammatical, word or spelling errors. Time with Patient: Less than 30
--- NOTE | 2023-06-09 12:42 | P.PN ---
Subjective Progress Note Date: 06/09/23 Principal diagnosis: Reason for follow-up is diverticulitis with microperforation Patient is a 28-year-old male with no significant past medical history presenting to the ER increasing abdominal pain x 3 days, patient did have a CT of abdominal pelvis concerning for small bowel obstruction hydronephrosis and also evidence of diverticulitis with microperforation prompting this infectious disease consultation. On today's evaluation that is 06/09/2023, the patient remains to be afebrile, patient is currently breathing comfortably on room air, the patient denies rayna st pain or cough, patient denies abdominal pain, no nausea no vomiting or any diarrhea. . Patient white count is up to 19.9 today, creatinine is 1.34 blood culture has been negative Objective - Vital Signs Vital signs: Vital Signs Temp 99.3 F 06/09/23 07:23 Pulse 87 06/09/23 07:23 Resp 18 06/09/23 07:23 BP 103/75 06/09/23 07:23 Pulse Ox 94 L 06/09/23 07:23 FiO2 Intake & Output 06/08/23 06/09/23 06/09/23 18:59 06:59 18:59 Weight 154.221 kg Other: Voiding Method Toilet # Voids 3 6 - Exam GENERAL DESCRIPTION: Middle-age male up in the chair in no distress RESPIRATORY SYSTEM: Unlabored breathing , decreased breath sounds at bases HEART: S1 S2 regular rate and rhythm , ABDOMEN: Soft , no tenderness EXTREMITIES: No edema feet - Labs CBC & Chem 7: 06/09/23 08:38 06/09/23 08:38 Labs: Abnormal Lab Results - Last 24 Hours (Table) 06/09/23 06/09/23 Range/Units 08:38 08:38 WBC 19.9 H (3.8-10.6) k/uL Neutrophils # 16.7 H (1.3-7.7) k/uL Sodium 146 H (137-145) mmol/L Potassium 3.4 L (3.5-5.1) mmol/L Chloride 110 H (98-107) mmol/L BUN 5 L (9-20) mg/dL Creatinine 1.34 H (0.66-1.25) mg/dL Glucose 117 H (74-99) mg/dL Assessment and Plan (1) Sepsis Current Visit: Yes Status: Acute Code(s): A41.9 - SEPSIS, UNSPECIFIED ORGANISM SNOMED Code(s): 13553949 (2) Perforation of sigmoid colon due to diverticulitis Current Visit: Yes Status: Acute Code(s): K57.20 - DVTRCLI OF LG INT W PERFORATION AND ABSCESS W/O BLEEDING SNOMED Code(s): 0943089900754576 (3) COVID-19 Current Visit: Yes Status: Acute Code(s): U07.1 - COVID-19 SNOMED Code(s): 606771039 Plan: 1patient presented to hospital with abdominal pain and fever and this patient has been diagnosed with a small bowel obstruction in addition to evidence of sigmoid diverticulitis with microperforation but did not mention any zohaib abscess we will need to cover for enteric gram-negative both anaerobes and anaerobes 2patient did tested positive for COVID-19 currently do not have significant respiratory symptoms or hypoxemia so no need for steroids or remdesivir 3patient is afebrile, also noticed to have worsening of his white count keeping in mind significant abnormality on the CT concerning for abscess will benefit from n.p.o. status and CT versus surgical drainage of the abscess continue with Priscilla Dictation was produced using [employer] dictation software. please excuse any grammatical, word or spelling errors. Time with Patient: Less than 30
[2023-06-09] MEDS ORDERED: Potassium Replacement Protocol 1 EACH MISC MISCELLANE PRN (14:43)
--- NOTE | 2023-06-09 14:51 | P.PN ---
Subjective Progress Note Date: 06/09/23 This is a 28-year-old male who presented to the emergency department with fevers and abdominal pain. Patient reports that the pain had been progressively becoming more worse over the last few days and he does have a noted umbilical hernia history and the site was painful and patient had associated fevers. Patient with no significant past medical history and reports has not followed up with a primary care provider in years although Dr. Holley was his last primary care provider. Patient reports he does use marijuana daily including vaping and denies smoking and denies alcohol use. Patient underwent an abdominal CT that was noted to have some inflammatory changes that are also adjacent to the si gmoid colon in the left lower quadrant with a couple of small loculated tiny amount of free air that may be present in that region with acute diverticulitis with small perforation that could be considered. Also noted to have a small bowel obstruction from loops or bowel within the anterior abdominal wall hernia with prominent hydronephrosis present bilaterally with hydroureter and obstructing etiology however not identified of note this was present previously and appears increased from previous imaging and there is a diffusely thickened urinary bladder wall. Patient was seen and evaluated briefly by urology and is having no difficulties with urination and reports this is chronic since 2020 and has also been instructed to follow-up outpatient for cystoscopy. Patient was started on Antibiotics in the form of Zosyn and pain management with IV hydration admitted under surgery for diverticulitis. Patient is currently n.p.o. and infectious diseases also consulted. Labs revealed a white count of 16.5, hemoglobin 15.0, sodium was 141 with a potassium of 3.8, creatinine mildly elevated at 1.28, total bili is 1.4, urinalysis was negative, patient is positive for COVID. 06/06/2023 Patient is currently sitting in the chair. Awake alert and oriented x 3. Able to pass flatus. No bowel meant yet. No complaints of abdominal pain. No fever no chills. No headache or dizziness or lightheadedness. Patient remains on antibiotics in the form of Zosyn. Otherwise laboratory data showed WBC 12.4 hemoglobin 14.3 and platelets 420 Sodium improved to 159 from 164 yesterday BUN 15.9 and creatinine 1.6. Patient is tolerating oral diet. IV fluids on hold. Nephrology neurology is on board. 06/07/2023 Patient is resting in the bed. Awake alert and oriented x 3. No complaints of abdominal pain. Patient did have a small bowel movement today. Otherwise afebrile. Continued on IV antibiotics, Zosyn. Sodium level improved to 147. Patient is tolerating oral diet. Otherwise BUN 10.6 and creatinine 1.7. Laboratory data showed WBC 12.7 hemoglobin 15.3 and platelets 458. Patient denied any cough or sputum production. Denies chest pain or shortness of breath. 06/08/2023 Patient is seen in follow-up today with multiple medical consultations following including nephrology, general surgery, infectious disease, neurology. Patient is continued on antibiotics in the form of Zosyn with infectious disease following. Blood cultures remain negative. Patient continues on clear liquids for now and repeat CT abdomen done this morning shows persistent dilated small bowel's with improved edema of the small bowel mesentery with more distal loops appear to have normalized with persistent umbilical hernia with a segment of large bowel and mild stranding within the hernia that could reflect a degree of strangulation, strandy attenuation persists adjacent to the sigmoid colon which could reflect diverticulitis and anteriorly there is a fluid collection measuring 5 cm and ascites or abscess is not excluded, persistent severe hydronephrosis with urinary bladder wall thickening persists. Patient is voiding with no difficulties and was evaluated by urology recommending outpatient follow-up. Sodium level is improved at 145 today, creatinine is 1.6 and potassium is 3.8. White count also trending down at 10.82 and patient is afebrile. Encouraged increase activity as tolerated. 06/09/2023 Patient is seen in follow-up currently continued on full liquid diet with general surgery following. Infectious disease following as well and maintained on antibiotics. Patient having low-grade temps of 99.0, 99.3 with no reports of chest pain or shortness of breath. Patient denies any abdominal discomfort and reports urinating with no difficulties. Patient has not had a bowel movement in the last 2 days. Nephrology following today and kidney functions with a sodium of 146, potassium is 3.4, creatinine slightly improved at 1.34. Will replace potassium per protocol and follow-up on repeat labs. Review of systems: Constitutional: No reports of fatigue, fever, or chills Cardiovascular: No reports of chest pain or palpitations Respiratory: No reports of shortness of breath or cough GI: No reports of nausea, vomiting, or diarrhea, reports had a bowel movement 1 or 2 days ago : No reports of dysuria or retention Neurovascular: reports of generalized weakness All medications have been reviewed PHYSICAL EXAMINATION: GENERAL: The patient is alert and oriented x3. Well developed, well nourished. Morbidly obese HEENT: Pupils are round and equally reacting to light. EOMI. No scleral icterus. No conjunctival pallor. Normocephalic, atraumatic. No pharyngeal erythema. No thyromegaly. CARDIOVASCULAR: S1 and S2 present. No murmurs, rubs, or gallops. PULMONARY: Chest is clear to auscultation, no wheezing or crackles. ABDOMEN: Soft, obese nontender, nondistended, normoactive bowel sounds. No palpable organomegaly. MUSCULOSKELETAL: No joint swelling or deformity. EXTREMITIES: No cyanosis, clubbing, or pedal edema. NEUROLOGICAL: Gross neurological examination did not reveal any focal deficits. SKIN: No rashes. Assessment: Abdominal pain with fevers, secondary to acute diverticulitis as noted on CT with microperforation and possible bowel obstruction Nonoliguric acute kidney injury likely vasomotor nephropathy on possible CKD due to chronic bilateral hydronephrosis. Hypernatremia due to dehydration volume depletion. Improving currently 145 today Morbid obesity with a body mass index of 46.1 Bilateral hydronephrosis as noted on CT, evaluated by urology recommending outpatient cystoscopy Acute COVID-19 infection Leukocytosis secondary to assessment #1, trending up and currently 19.9 today Daily marijuana use including vaping Noncompliance to medical care, has not been seen by a primary care provider in years DVT prophylaxis GI prophylaxis Full code Plan: Patient is continued on antibiotics and admitted to general surgery with infectious disease following for acute diverticulitis with microperforation and possible bowel obstruction. Repeat CT abdomen was done yesterday as mentioned above Patient was seen and evaluated by urology with concerns of bilateral hydronephrosis noted on CT and patient denies having any pain or difficulty with urination and reports was told of this years ago about stricture although having no difficulties. Urology recommending outpatient follow-up with cystoscopy Patient is continued on full liquids per surgery with no plans of immediate surgical intervention and monitoring currently Nephrology following for WAYNE likely dehydration and reduced oral intake, potassium 3.4 and will replace per protocol, creatinine slightly improved at 1.34 today. Sodium is 146 today. We will continue to follow with general surgery and make further recommendations. Thank you kindly for this consultation. The impression and plan of care has been dictated by Jayashree Leyva, Nurse Prac titioner as directed. Dr. Santos MD I have performed a history and examination and MDM of this patient, discussed the same with the dictator, and agree with the dictator's assessment and plan as written ,documented as a scribe. Based on total visit time, I have performed more than 50% of the visit. Objective - Vital Signs Vital signs: Vital Signs Temp 99.3 F 06/09/23 07:23 Pulse 87 06/09/23 07:23 Resp 18 06/09/23 07:23 BP 103/75 06/09/23 07:23 Pulse Ox 94 L 06/09/23 07:23 FiO2 Intake & Output 06/08/23 06/09/23 06/09/23 18:59 06:59 18:59 Weight 154.221 kg Other: Voiding Method Toilet # Voids 3 6 3 - Labs CBC & Chem 7: 06/09/23 08:38 06/09/23 08:38 Labs: Abnormal Lab Results - Last 24 Hours (Table) 06/09/23 06/09/23 Range/Units 08:38 08:38 WBC 19.9 H (3.8-10.6) k/uL Neutrophils # 16.7 H (1.3-7.7) k/uL Sodium 146 H (137-145) mmol/L Potassium 3.4 L (3.5-5.1) mmol/L Chloride 110 H (98-107) mmol/L BUN 5 L (9-20) mg/dL Creatinine 1.34 H (0.66-1.25) mg/dL Glucose 117 H (74-99) mg/dL
[2023-06-09] MEDS ORDERED: POTASSIUM BICARBONATE/CIT AC 20 MEQ TABLET.EFF NG-TUBE SCH (15:00)
[2023-06-09] MEDS: POTASSIUM BICARBONATE/CIT AC 20 MEQ TABLET.EFF PO SCH (15:13)
--- NOTE | 2023-06-09 16:05 | P.PN ---
Subjective Progress Note Date: 06/09/23 CHIEF COMPLAINT: Perforation of the sigmoid colon HISTORY OF PRESENT ILLNESS: Patient is lying in bed. Patient reports that he is feeling better. He has some mild discomfort in the left lower quadrant. Patient's stools are becoming more solid. Denies any nausea or vomiting. Tolerating full liquids. Afebrile. WBC elevated has gone up from 10.8-19.9. Potassium 3.4 and being replaced PHYSICAL EXAM: VITAL SIGNS: Reviewed. GENERAL: Well-developed in no acute distress. ABDOMEN: Soft. Obese with large pannus, partially reducible umbilical hernia. Skin of umbilical hernia slightly darkened. tender at the umbilicus. Minimal tenderness left lower quadrant. NEUROLOGIC: Alert and oriented. Cranial nerves II through XII grossly intact. ASSESSMENT: 1. Perforated sigmoid diverticulitis now with fluid collection. Secondary small bowel obstruction or ileus 2. Bilateral hydronephrosis with probable incomplete bladder emptying. Patient seen by urology. Plans for outpatient cystoscopy 3. COVID-positive PLAN: -Continue to observe. No surgical intervention for now -Repeat CBC in a.m. -Continue full liquid diet -Encourage patient to ambulate -Continue antibiotics -Continue pain management -GI prophylaxis Pepcid and DVT prophylaxis subcu heparin Physician Bowling Ball Molder note has been reviewed by physician. Signing provider agrees with the documented findings, assessment, and plan of care. I have personally seen and examined the patient, reviewed the MANAGER RESORT /PAs history, exam and MDM and agree with the assessment and plan as written. Based on total visit time, I have performed more than 50% of the visit. As above: Patient says he feels well today. Only mild left lower quadrant pain. Thinks it somewhat better. White blood cell count did increase today. He is afebrile. Tolerating full liquids. No nausea or vomiting. Still having bowel function. Continue antibiotics. Will tentatively plan PICC line placement for IV antibiotics. Recheck labs tomorrow. Objective - Vital Signs Vital signs: Vital Signs Temp 99.3 F 06/09/23 07:23 Pulse 87 06/09/23 07:23 Resp 18 06/09/23 07:23 BP 103/75 06/09/23 07:23 Pulse Ox 94 L 06/09/23 07:23 FiO2 Intake & Output 06/08/23 06/09/23 06/09/23 18:59 06:59 18:59 Weight 154.221 kg Other: Voiding Method Toilet # Voids 3 6 - Labs CBC & Chem 7: 06/09/23 08:38 06/09/23 08:38 Labs: Abnormal Lab Results - Last 24 Hours (Table) 06/09/23 06/09/23 Range/Units 08:38 08:38 WBC 19.9 H (3.8-10.6) k/uL Neutrophils # 16.7 H (1.3-7.7) k/uL Sodium 146 H (137-145) mmol/L Potassium 3.4 L (3.5-5.1) mmol/L Chloride 110 H (98-107) mmol/L BUN 5 L (9-20) mg/dL Creatinine 1.34 H (0.66-1.25) mg/dL Glucose 117 H (74-99) mg/dL
[2023-06-10 11:13] LABS: Basophils # (A) 0.06 X 10*3/uL (0.00-0.10); Basophils % (A) 0.5 %; Eosinophils # (A) 0.38 X 10*3/uL (0.04-0.35); HCT 44.6 % (39.6-50.0); HGB 14.3 g/dL (13.0-17.0); Lymphocytes # (A) 2.24 X 10*3/uL (0.90-5.00); Lymphocytes % (A) 17.7 %; MCH 26.6 pg (27.0-32.0); MCHC 32.1 g/dL (32.0-37.0); MCV 83.1 FL (80.0-97.0); Mean Platelet Volume 10.8 FL (9.5-12.2); Monocytes # (A) 0.81 X 10*3/uL (0.20-1.00); Monocytes % (A) 6.4 %; NRBC Per 100 WBC 0 X 10*3/uL (0.00-0.01); Neutrophils % (A) 71.1 %; Platelet Count 351 X 10*3/uL (140-440); RBC 5.37 X 10*6/uL (4.40-5.60); WBC 12.65 X 10*3/uL (4.50-10.00)
--- NOTE | 2023-06-10 11:29 | P.PN ---
Subjective Patient is seen for follow-up for acute kidney injury. Renal function has improved slightly with creatinine down to 1.3. Tolerating oral intake. No significant complaints today. Objective - Vital Signs Vital signs: Vital Signs Temp 97.4 F L 06/10/23 07:14 Pulse 79 06/10/23 07:14 Resp 18 06/10/23 07:14 BP 102/66 06/10/23 07:14 Pulse Ox 96 06/10/23 07:14 FiO2 Intake & Output 06/09/23 06/10/23 06/10/23 18:59 06:59 18:59 Intake Total 100 100 Balance 100 100 Intake: Intake, IV Titration 100 100 Amount Piperacillin-Tazobactam 3 100 100 .375 gm In Sodium Chloride 0.9% 100 ml @ 25 mls/hr IVPB Q8HR [facility] Rx# :[id number] Other: # Voids 3 1 # Bowel Movements 1 2 - Exam Patient is awake, comfortable, no acute distress Examination of the heart S1 and S2 Examination of the lungs bilateral breath sounds are heard Abdomen is soft nontender, obese Examination of lower extremities shows no significant edema [employer] UT[employer] WORKER exam grossly intact - Labs CBC & Chem 7: 06/10/23 06:08 06/09/23 08:38 Labs: Abnormal Lab Results - Last 24 Hours (Table) 06/10/23 Range/Units 06:08 WBC 12.65 H (4.50-10.00) X 10*3/uL MCH 26.6 L (27.0-32.0) pg RDW 15.0 H (11.5-14.5) % Immature Gran # 0.16 H (0.00-0.04) X 10*3/uL Neutrophils # 9.00 H (1.80-7.70) X 10*3/uL Eosinophils # 0.38 H (0.04-0.35) X 10*3/uL Microbiology - Last 24 Hours (Table) 06/04/23 13:31 Blood Culture - Final Blood 06/04/23 13:54 Blood Culture - Final Blood Assessment and Plan Assessment: 1. Non-oliguric WAYNE likely prerenal from dehydration, status post IVF, tolerting oral intake possible underlying obstructive as well given CT showing bilateral hydronpehrosis which is chronic. Creatinine decreased to 1.3 . 2. Hypernatremia due to NPO and dehydration. Improving 3. Acute Diverticulitis 4. Bilateral chronic hydronephrosis with distended thickened bladder. Plans for cystoscopy as outpatient Plan: Continue to encourage increase oral intake particularly fluids. Follow-up with urology as outpatient Follow-up as outpatient for CKD.
[2023-06-10 11:47] LABS: Magnesium 1.7 mg/dL (1.5-2.4)
[2023-06-10 12:19] LABS: ALT 72 U/L (10-49); AST 26 U/L (14-35); Albumin 3.5 g/dL (3.8-4.9); Alkaline Phosphatase 108 U/L (41-126); BUN/Creat Ratio 4.62 Ratio (12.00-20.00); Calcium 9.5 mg/dL (8.7-10.3); Carbon Dioxide 25.3 mmol/L (21.6-31.8); Chloride 106 mmol/L (96-109); Globulin 3.5 g/dL (1.6-3.3); Glucose 86 mg/dL (70-110); Sodium 145 mmol/L (135-145); Total Bilirubin 0.6 mg/dL (0.3-1.2)
--- NOTE | 2023-06-10 12:35 | P.PN ---
Subjective Progress Note Date: 06/10/23 Principal diagnosis: Reason for follow-up is diverticulitis with microperforation Patient is a 28-year-old male with no significant past medical history presenting to the ER increasing abdominal pain x 3 days, patient did have a CT of abdominal pelvis concerning for small bowel obstruction hydronephrosis and also evidence of diverticulitis with microperforation prompting this infectious disease consultation. On today's evaluation that is 06/10/2023, the patient did have a low-grade fever 100.3 last night however the patient is afebrile this morning, patient is on room air, the patient denies chest pain shortness of breath or cough, patient denies nausea no vomiting no abdominal pain and no diarrhea has been reported. The patient white count is down to 12.65, creatinine is 1.34 blood culture has been negative Objective - Vital Signs Vital signs: Vital Signs Temp 97.4 F L 06/10/23 07:14 Pulse 79 06/10/23 07:14 Resp 18 06/10/23 07:14 BP 102/66 06/10/23 07:14 Pulse Ox 96 06/10/23 07:14 FiO2 Intake & Output 06/09/23 06/10/23 06/10/23 18:59 06:59 18:59 Intake Total 100 100 Balance 100 100 Intake: Intake, IV Titration 100 100 Amount Piperacillin-Tazobactam 3 100 100 .375 gm In Sodium Chloride 0.9% 100 ml @ 25 mls/hr IVPB Q8HR [facility] Rx# :[id number] Other: # Voids 3 1 # Bowel Movements 1 2 - Exam GENERAL DESCRIPTION: Middle-age male up in the chair in no distress RESPIRATORY SYSTEM: Unlabored breathing , decreased breath sounds at bases HEART: S1 S2 regular rate and rhythm , ABDOMEN: Soft , no tenderness EXTREMITIES: No edema feet - Labs CBC & Chem 7: 06/10/23 06:08 06/09/23 08:38 Labs: Abnormal Lab Results - Last 24 Hours (Table) 06/10/23 Range/Units 06:08 WBC 12.65 H (4.50-10.00) X 10*3/uL MCH 26.6 L (27.0-32.0) pg RDW 15.0 H (11.5-14.5) % Immature Gran # 0.16 H (0.00-0.04) X 10*3/uL Neutrophils # 9.00 H (1.80-7.70) X 10*3/uL Eosinophils # 0.38 H (0.04-0.35) X 10*3/uL Microbiology - Last 24 Hours (Table) 06/04/23 13:31 Blood Culture - Final Blood 06/04/23 13:54 Blood Culture - Final Blood Assessment and Plan (1) Sepsis Current Visit: Yes Status: Acute Code(s): A41.9 - SEPSIS, UNSPECIFIED ORGANISM SNOMED Code(s): 11733624 (2) Perforation of sigmoid colon due to diverticulitis Current Visit: Yes Status: Acute Code(s): K57.20 - DVTRCLI OF LG INT W PERFORATION AND ABSCESS W/O BLEEDING SNOMED Code(s): 6976681149698116 (3) COVID-19 Current Visit: Yes Status: Acute Code(s): U07.1 - COVID-19 SNOMED Code(s): 050801664 Plan: 1patient presented to hospital with abdominal pain and fever and this patient has been diagnosed with a small bowel obstruction in addition to evidence of sigmoid diverticulitis with microperforation but did not mention any zohaib ab scess we will need to cover for enteric gram-negative both anaerobes and anaerobes 2patient did tested positive for COVID-19 currently do not have significant respiratory symptoms or hypoxemia so no need for steroids or remdesivir 3patient did have a low-grade fever last night And also have elevated white count however there is trending down keeping in mind CT was suggestive of abscess may benefit from drainage continue with Zosyn and monitor clinical course closely Dictation was produced using [employer] dictation software. please excuse any grammatical, word or spelling errors. Time with Patient: Less than 30
--- NOTE | 2023-06-10 15:37 | P.PN ---
Subjective Progress Note Date: 06/10/23 CHIEF COMPLAINT: Perforation of the sigmoid colon HISTORY OF PRESENT ILLNESS: Patient reports pain continues to improve. He did have a liquidy/formed stool. Denies any nausea or vomiting. Tolerating full liquids. Patient had a low-grade temp of 100.3 last night. WBC is down from 19-12.6 PHYSICAL EXAM: VITAL SIGNS: Reviewed. GENERAL: Well-developed in no acute distress. ABDOMEN: Soft. Obese with large pannus, partially reducible umbilical hernia. Skin of umbilical hernia slightly darkened. tender at the umbilicus. Minimal tenderness left lower quadrant. NEUROLOGIC: Alert and oriented. Cranial nerves II through XII grossly intact. ASSESSMENT: 1. Perforated sigmoid diverticulitis now with fluid collection. Secondary small bowel obstruction or ileus 2. Bilateral hydronephrosis with probable incomplete bladder emptying. Patient seen by urology. Plans for outpatient cystoscopy 3. COVID-positive PLAN: -Repeat CT scan pelvis tomorrow for further evaluation of the fluid collection -Continue to observe -Repeat CBC in a.m. -Continue full liquid diet -Encourage patient to ambulate -Continue antibiotics per ID -Continue pain management -GI prophylaxis Pepcid and DVT prophylaxis subcu heparin Physician Clark Driver note has been reviewed by physician. Signing provider agrees with the documented findings, assessment, and plan of care. I have personally seen and examined the patient, reviewed the LITHARGE MILL OPERATOR /PAs history, exam and MDM and agree with the assessment and plan as written. Based on total visit time, I have performed more than 50% of the visit. Patient doing about the same. Pain 1-2 out of 10. White blood cell count improved. Options reviewed. Will repeat CT tomorrow afternoon to evaluate fluid collection and see if this is amenable to drainage at this time. Objective - Vital Signs Vital signs: Vital Signs Temp 98.1 F 06/10/23 14:40 Pulse 76 06/10/23 14:40 Resp 17 06/10/23 14:40 BP 120/74 06/10/23 14:40 Pulse Ox 96 06/10/23 14:40 FiO2 Intake & Output 06/09/23 06/10/23 06/10/23 18:59 06:59 18:59 Intake Total 100 100 Balance 100 100 Intake: Intake, IV Titration 100 100 Amount Piperacillin-Tazobactam 3 100 100 .375 gm In Sodium Chloride 0.9% 100 ml @ 25 mls/hr IVPB Q8HR [facility] Rx# :[id number] Other: # Voids 3 1 # Bowel Movements 1 2 - Labs CBC & Chem 7: 06/10/23 06:08 06/10/23 06:08 Labs: Abnormal Lab Results - Last 24 Hours (Table) 06/10/23 06/10/23 Range/Units 06:08 06:08 WBC 12.65 H (4.50-10.00) X 10*3/uL MCH 26.6 L (27.0-32.0) pg RDW 15.0 H (11.5-14.5) % Immature Gran # 0.16 H (0.00-0.04) X 10*3/uL Neutrophils # 9.00 H (1.80-7.70) X 10*3/uL Eosinophils # 0.38 H (0.04-0.35) X 10*3/uL Anion Gap 13.70 H (4.00-12.00) mmol/L BUN 6.0 L (9.0-27.0) mg/dL BUN/Creatinine Ratio 4.62 L (12.00-20.00) Ratio ALT 72 H (10-49) U/L Albumin 3.5 L (3.8-4.9) g/dL Globulin 3.5 H (1.6-3.3) g/dL Albumin/Globulin Ratio 1.00 L (1.60-3.17) Ratio Microbiology - Last 24 Hours (Table) 06/04/23 13:31 Blood Culture - Final Blood 06/04/23 13:54 Blood Culture - Final Blood
--- NOTE | 2023-06-11 03:47 | P.PN ---
Subjective Progress Note Date: 06/10/23 This is a 28-year-old male who presented to the emergency department with fevers and abdominal pain. Patient reports that the pain had been progressively becoming more worse over the last few days and he does have a noted umbilical hernia history and the site was painful and patient had associated fevers. Patient with no significant past medical history and reports has not followed up with a primary care provider in years although Dr. Holley was his last primary care provider. Patient reports he does use marijuana daily including vaping and denies smoking and denies alcohol use. Patient underwent an abdominal CT that was noted to have some inflammatory changes that are also adjacent to the si gmoid colon in the left lower quadrant with a couple of small loculated tiny amount of free air that may be present in that region with acute diverticulitis with small perforation that could be considered. Also noted to have a small bowel obstruction from loops or bowel within the anterior abdominal wall hernia with prominent hydronephrosis present bilaterally with hydroureter and obstructing etiology however not identified of note this was present previously and appears increased from previous imaging and there is a diffusely thickened urinary bladder wall. Patient was seen and evaluated briefly by urology and is having no difficulties with urination and reports this is chronic since 2020 and has also been instructed to follow-up outpatient for cystoscopy. Patient was started on Antibiotics in the form of Zosyn and pain management with IV hydration admitted under surgery for diverticulitis. Patient is currently n.p.o. and infectious diseases also consulted. Labs revealed a white count of 16.5, hemoglobin 15.0, sodium was 141 with a potassium of 3.8, creatinine mildly elevated at 1.28, total bili is 1.4, urinalysis was negative, patient is positive for COVID. 06/06/2023 Patient is currently sitting in the chair. Awake alert and oriented x 3. Able to pass flatus. No bowel meant yet. No complaints of abdominal pain. No fever no chills. No headache or dizziness or lightheadedness. Patient remains on antibiotics in the form of Zosyn. Otherwise laboratory data showed WBC 12.4 hemoglobin 14.3 and platelets 420 Sodium improved to 159 from 164 yesterday BUN 15.9 and creatinine 1.6. Patient is tolerating oral diet. IV fluids on hold. Nephrology neurology is on board. 06/07/2023 Patient is resting in the bed. Awake alert and oriented x 3. No complaints of abdominal pain. Patient did have a small bowel movement today. Otherwise afebrile. Continued on IV antibiotics, Zosyn. Sodium level improved to 147. Patient is tolerating oral diet. Otherwise BUN 10.6 and creatinine 1.7. Laboratory data showed WBC 12.7 hemoglobin 15.3 and platelets 458. Patient denied any cough or sputum production. Denies chest pain or shortness of breath. 06/08/2023 Patient is seen in follow-up today with multiple medical consultations following including nephrology, general surgery, infectious disease, neurology. Patient is continued on antibiotics in the form of Zosyn with infectious disease following. Blood cultures remain negative. Patient continues on clear liquids for now and repeat CT abdomen done this morning shows persistent dilated small bowel's with improved edema of the small bowel mesentery with more distal loops appear to have normalized with persistent umbilical hernia with a segment of large bowel and mild stranding within the hernia that could reflect a degree of strangulation, strandy attenuation persists adjacent to the sigmoid colon which could reflect diverticulitis and anteriorly there is a fluid collection measuring 5 cm and ascites or abscess is not excluded, persistent severe hydronephrosis with urinary bladder wall thickening persists. Patient is voiding with no difficulties and was evaluated by urology recommending outpatient follow-up. Sodium level is improved at 145 today, creatinine is 1.6 and potassium is 3.8. White count also trending down at 10.82 and patient is afebrile. Encouraged increase activity as tolerated. 06/09/2023 Patient is seen in follow-up currently continued on full liquid diet with general surgery following. Infectious disease following as well and maintained on antibiotics. Patient having low-grade temps of 99.0, 99.3 with no reports of chest pain or shortness of breath. Patient denies any abdominal discomfort and reports urinating with no difficulties. Patient has not had a bowel movement in the last 2 days. Nephrology following today and kidney functions with a sodium of 146, potassium is 3.4, creatinine slightly improved at 1.34. Will replace potassium per protocol and follow-up on repeat labs. 06/10/2023 Patient is seen in follow-up this morning continues on a full liquid diet with no immediate plans of surgical intervention at this time. Plan is for repeat CT abdomen to assess the fluid collection and patient is continued on antibiotics with infectious disease following as well. White count is trending down and patient has been afebrile this morning. Patient tolerating diet and reports to having a bowel movement. Patient is urinating with no difficulties. Repeat labs ordered for a.m. Review of systems: Constitutional: No reports of fatigue, fever, or chills Cardiovascular: No reports of chest pain or palpitations Respiratory: No reports of shortness of breath or cough GI: No reports of nausea, vomiting, or diarrhea, reports had a bowel movement that was somewhat loose and formed : No reports of dysuria or retention Neurovascular: reports of generalized weakness All medications have been reviewed PHYSICAL EXAMINATION: GENERAL: The patient is alert and oriented x3. Well developed, well nourished. Morbidly obese HEENT: Pupils are round and equally reacting to light. EOMI. No scleral icterus. No conjunctival pallor. Normocephalic, atraumatic. No pharyngeal erythema. No thyromegaly. CARDIOVASCULAR: S1 and S2 present. No murmurs, rubs, or gallops. PULMONARY: Chest is clear to auscultation, no wheezing or crackles. ABDOMEN: Soft, obese nontender, nondistended, normoactive bowel sounds. No palpable organomegaly. MUSCULOSKELETAL: No joint swelling or deformity. EXTREMITIES: No cyanosis, clubbing, or pedal edema. NEUROLOGICAL: Gross neurological examination did not reveal any focal deficits. SKIN: No rashes. Assessment: Abdominal pain with fevers, secondary to acute diverticulitis as noted on CT with microperforation and fluid collection and possible bowel obstruction versus ileus Nonoliguric acute kidney injury likely vasomotor nephropathy on possible CKD due to chronic bilateral hydronephrosis. Hypernatremia due to dehydration volume depletion. Improving Morbid obesity with a body mass index of 46.1 Bilateral hydronephrosis as noted on CT, evaluated by urology recommending outpatient cystoscopy Acute COVID-19 infection Leukocytosis secondary to assessment #1, trending down at 12 today Daily marijuana use including vaping Noncompliance to medical care, has not been seen by a primary care provider in years DVT prophylaxis GI prophylaxis Full code Plan: Patient is continued on antibiotics and admitted to general surgery with infectious disease following for acute diverticulitis with microperforation with fluid collection and possible bowel obstruction versus ileus. Patient did have a bowel movement. Plan is for repeat CT abdomen in a.m. to assess the fluid collection Patient was seen and evaluated by urology with concerns of bilateral hydronephrosis noted on CT and patient denies having any pain or difficulty with urination and reports was told of this years ago about stricture although having no difficulties. Urology recommending outpatient follow-up with cystoscopy Patient is continued on full liquids per surgery with no plans of immediate surgical intervention and monitoring currently Nephrology following for WAYNE likely dehydration and reduced oral intake. Repeat labs ordered for a.m. and recommend replacement per protocol We will continue to follow with general surgery and make further recommendations. Thank you kindly for this consultation. The impression and plan of care has been dictated by Jayashree Leyva, Nurse Practitioner as directed. Dr. Santos MD I have performed a history and examination and MDM of this patient, discussed the same with the dictator, and agree with the dictator's assessment and plan as written ,documented as a scribe. Based on total visit time, I have performed more than 50% of the visit. Objective - Vital Signs Vital signs: Vital Signs Temp 98.1 F 06/10/23 14:40 Pulse 76 06/10/23 14:40 Resp 17 06/10/23 14:40 BP 120/74 06/10/23 14:40 Pulse Ox 96 06/10/23 14:40 FiO2 Intake & Output 06/10/23 06/10/23 06/11/23 06:59 18:59 06:59 Intake Total 100 Balance 100 Intake: Intake, IV Titration 100 Amount Piperacillin-Tazobactam 3 100 .375 gm In Sodium Chloride 0.9% 100 ml @ 25 mls/hr IVPB Q8HR [facility] Rx# :[id number] Other: # Voids 5 # Bowel Movements 3 - Labs CBC & Chem 7: 06/10/23 06:08 06/10/23 06:08 Labs: Abnormal Lab Results - Last 24 Hours (Table) 06/10/23 06/10/23 Range/Units 06:08 06:08 WBC 12.65 H (4.50-10.00) X 10*3/uL MCH 26.6 L (27.0-32.0) pg RDW 15.0 H (11.5-14.5) % Immature Gran # 0.16 H (0.00-0.04) X 10*3/uL Neutrophils # 9.00 H (1.80-7.70) X 10*3/uL Eosinophils # 0.38 H (0.04-0.35) X 10*3/uL Anion Gap 13.70 H (4.00-12.00) mmol/L BUN 6.0 L (9.0-27.0) mg/dL BUN/Creatinine Ratio 4.62 L (12.00-20.00) Ratio ALT 72 H (10-49) U/L Albumin 3.5 L (3.8-4.9) g/dL Globulin 3.5 H (1.6-3.3) g/dL Albumin/Globulin Ratio 1.00 L (1.60-3.17) Ratio Microbiology - Last 24 Hours (Table) 06/04/23 13:31 Blood Culture - Final Blood 06/04/23 13:54 Blood Culture - Final Blood
--- NOTE | 2023-06-11 08:41 | CT ---
EXAMINATION TYPE: CT pelvis wo con CT DLP: 1900 mGycm, Automated exposure control for dose reduction was used. DATE OF EXAM: 06/11/2023 7:43 AM COMPARISON: CT abdomen pelvis most recent from 06/08/2023 CLINICAL INDICATION:Male, 28 years old with history of Follow-up on perforated diverticulitis with ab scess; Follow up on perforated diverticulitis with abscess TECHNIQUE: Axial CT pelvis wo con;Sagittal and coronal reformats were created on a separate workstat ion. Contrast used: mL of , (none if empty) Oral contrast used: without Oral Contrast (none if empty) FINDINGS: BLADDER: Distended urinary bladder. Mild circumferential wall thickening present. REPRODUCTIVE: Unremarkable. ABDOMEN & PELVIS STOMACH AND BOWEL: No evidence of bowel obstruction. Evaluation due to lack of IV and oral contrast. There is loose of bowel with fluid in the left lower quadrant previously 1 these appear to represent an abscess. There remains inflammation changes around the sigmoid colon. PERITONEUM/RETROPERITONEUM: No evidence of pneumoperitoneum or free fluid. VASCULATURE: No evidence of aortic aneurysm. MUSCULOSKELETAL: No acute osseous abnormalities LYMPH NODES: No gross evidence for lymphadenopathy. SOFT TISSUE/ABDOMINAL WALL: Right anterior abdominal wall hernia containing loops of colon. IMPRESSION: 1. Lack of IV and oral contrast as well as pelvis only exam limits evaluation of the bowel and prior fluid collection seen in left lower quadrant prior. There is partially visualized loops of bowel wit h fluid in the left lower quadrant previously 1 these appear to represent an organizing fluid collect ion which may still be present. 2. Right lower quadrant anterior abdominal wall hernia containing loops of colon similar prior. 3. Distended urinary bladder with circumferential thickening correlate for cystitis with urinalysis. 4. There remains inflammation changes around the sigmoid colon.
--- NOTE | 2023-06-11 11:17 | P.PN ---
Subjective Patient is seen for follow-up for acute kidney injury. Renal function has improved slightly with creatinine down to 1.3. Tolerating oral intake. No significant complaints today. Objective - Vital Signs Vital signs: Vital Signs Temp 97.9 F 06/11/23 07:53 Pulse 68 06/11/23 07:53 Resp 18 06/11/23 07:53 BP 108/72 06/11/23 07:53 Pulse Ox 97 06/11/23 07:53 FiO2 Intake & Output 06/10/23 06/11/23 06/11/23 18:59 06:59 18:59 Intake Total 100 100 Balance 100 100 Weight 154.221 kg Intake: Intake, IV Titration 100 100 Amount Piperacillin-Tazobactam 3 100 100 .375 gm In Sodium Chloride 0.9% 100 ml @ 25 mls/hr IVPB Q8HR [facility] Rx# :[id number] Other: # Voids 5 5 # Bowel Movements 3 - Exam Patient is awake, comfortable, no acute distress Examination of the heart S1 and S2 Examination of the lungs bilateral breath sounds are heard Abdomen is soft nontender, obese Examination of lower extremities shows no significant edema EMBROIDERER HAND exam grossly intact - Labs CBC & Chem 7: 06/10/23 06:08 06/10/23 06:08 Labs: Abnormal Lab Results - Last 24 Hours (Table) 06/10/23 Range/Units 06:08 Anion Gap 13.70 H (4.00-12.00) mmol/L BUN 6.0 L (9.0-27.0) mg/dL BUN/Creatinine Ratio 4.62 L (12.00-20.00) Ratio ALT 72 H (10-49) U/L Albumin 3.5 L (3.8-4.9) g/dL Globulin 3.5 H (1.6-3.3) g/dL Albumin/Globulin Ratio 1.00 L (1.60-3.17) Ratio Assessment and Plan Assessment: 1. Non-oliguric WAYNE likely prerenal from dehydration, status post IVF, tolerting oral intake possible underlying obstructive as well given CT showing bilateral hydronpehrosis which is chronic. Creatinine decreased to 1.3 . 2. Hypernatremia due to NPO and dehydration. Improving 3. Acute Diverticulitis 4. Bilateral chronic hydronephrosis with distended thickened bladder. Plans for cystoscopy as outpatient Plan: Continue to encourage increase oral intake particularly fluids. Follow-up with urology as outpatient Follow-up as outpatient for CKD.
[2023-06-11 11:42] LABS: Basophils # (A) 0.05 X 10*3/uL (0.00-0.10); Basophils % (A) 0.4 %; Eosinophils % (A) 3.5 %; HCT 46.8 % (39.6-50.0); HGB 14.3 g/dL (13.0-17.0); Lymphocytes # (A) 2.16 X 10*3/uL (0.90-5.00); Lymphocytes % (A) 19.1 %; MCH 26.1 pg (27.0-32.0); MCHC 30.6 g/dL (32.0-37.0); MCV 85.4 FL (80.0-97.0); Monocytes % (A) 6.2 %; NRBC Per 100 WBC 0 X 10*3/uL (0.00-0.01); Neutrophils # (A) 7.83 X 10*3/uL (1.80-7.70); Neutrophils % (A) 69.2 %; Platelet Count 359 X 10*3/uL (140-440); RBC 5.48 X 10*6/uL (4.40-5.60); RDW 14.8 % (11.5-14.5); WBC 11.32 X 10*3/uL (4.50-10.00)
[2023-06-11 12:02] LABS: BUN/Creat Ratio 4.14 Ratio (12.00-20.00); Blood Urea Nitrogen 5.8 mg/dL (9.0-27.0); Calcium 9.5 mg/dL (8.7-10.3); Carbon Dioxide 29.7 mmol/L (21.6-31.8); Chloride 105 mmol/L (96-109); Glucose 76 mg/dL (70-110); Magnesium 1.8 mg/dL (1.5-2.4); Potassium 4.4 mmol/L (3.5-5.5); Sodium 144 mmol/L (135-145)
--- NOTE | 2023-06-11 14:08 | P.PN ---
Subjective Progress Note Date: 06/11/23 Principal diagnosis: Reason for follow-up is diverticulitis with microperforation Patient is a 28-year-old male with no significant past medical history presenting to the ER increasing abdominal pain x 3 days, patient did have a CT of abdominal pelvis concerning for small bowel obstruction hydronephrosis and also evidence of diverticulitis with microperforation prompting this infectious disease consultation. On today's evaluation that is 06/11/2023, the patient remains to be afebrile, patient is currently breathing comfortably on room air, the patient denies rayna st pain and no significant cough, patient denies abdominal pain, no nausea no vomiting or any diarrhea has been reported. Patient white count drawn around 132, creatinine is 1.4 patient did have a rep eat pelvic CT mention possible arising fluid collections may still be present Objective - Vital Signs Vital signs: Vital Signs Temp 97.9 F 06/11/23 07:53 Pulse 68 06/11/23 07:53 Resp 18 06/11/23 07:53 BP 108/72 06/11/23 07:53 Pulse Ox 97 06/11/23 07:53 FiO2 Intake & Output 06/10/23 06/11/23 06/11/23 18:59 06:59 18:59 Intake Total 100 100 Balance 100 100 Weight 154.221 kg Intake: Intake, IV Titration 100 100 Amount Piperacillin-Tazobactam 3 100 100 .375 gm In Sodium Chloride 0.9% 100 ml @ 25 mls/hr IVPB Q8HR [facility] Rx# :[id number] Other: # Voids 5 5 # Bowel Movements 3 - Exam GENERAL DESCRIPTION: Middle-age male up in the chair in no distress RESPIRATORY SYSTEM: Unlabored breathing , decreased breath sounds at bases HEART: S1 S2 regular rate and rhythm , ABDOMEN: Soft , no tenderness EXTREMITIES: No edema feet - Labs CBC & Chem 7: 06/11/23 06:39 06/11/23 06:39 Labs: Abnormal Lab Results - Last 24 Hours (Table) 06/11/23 06/11/23 Range/Units 06:39 06:39 WBC 11.32 H (4.50-10.00) X 10*3/uL MCH 26.1 L (27.0-32.0) pg MCHC 30.6 L (32.0-37.0) g/dL RDW 14.8 H (11.5-14.5) % Immature Gran # 0.18 H (0.00-0.04) X 10*3/uL Neutrophils # 7.83 H (1.80-7.70) X 10*3/uL Eosinophils # 0.40 H (0.04-0.35) X 10*3/uL BUN 5.8 L (9.0-27.0) mg/dL BUN/Creatinine Ratio 4.14 L (12.00-20.00) Ratio Assessment and Plan (1) Sepsis Current Visit: Yes Status: Acute Code(s): A41.9 - SEPSIS, UNSPECIFIED ORGANISM SNOMED Code(s): 06441572 (2) Perforation of sigmoid colon due to diverticulitis Current Visit: Yes Status: Acute Code(s): K57.20 - DVTRCLI OF LG INT W PERFORATION AND ABSCESS W/O BLEEDING SNOMED Code(s): 1425318404203668 (3) COVID-19 Current Visit: Yes Status: Acute Code(s): U07.1 - COVID-19 SNOMED Code(s): 824895661 Plan: 1patient presented to hospital with abdominal pain and fever and this patient has been diagnosed with a small bowel obstruction in addition to evidence of sigmoid diverticulitis with microperforation but did not mention any zohaib abscess we will need to cover for enteric gram-negative both anaerobes and an aerobes 2patient did tested positive for COVID-19 currently do not have significant respiratory symptoms or hypoxemia so no need for steroids or remdesivir 3patient did have resolution of his fever and his white count is trending down patient to continue with Zosyn and monitor clinical course closely Dictation was produced using [employer] dictation software. please excuse any grammatical, word or spelling errors. Time with Patient: Less than 30
[2023-06-11] MEDS ORDERED: Magnesium Replacement Protocol 1 EACH MISC MISCELLANE PRN (14:09)
--- NOTE | 2023-06-11 14:10 | P.PN ---
Subjective Progress Note Date: 06/11/23 This is a 28-year-old male who presented to the emergency department with fevers and abdominal pain. Patient reports that the pain had been progressively becoming more worse over the last few days and he does have a noted umbilical hernia history and the site was painful and patient had associated fevers. Patient with no significant past medical history and reports has not followed up with a primary care provider in years although Dr. Holley was his last primary care provider. Patient reports he does use marijuana daily including vaping and denies smoking and denies alcohol use. Patient underwent an abdominal CT that was noted to have some inflammatory changes that are also adjacent to the si gmoid colon in the left lower quadrant with a couple of small loculated tiny amount of free air that may be present in that region with acute diverticulitis with small perforation that could be considered. Also noted to have a small bowel obstruction from loops or bowel within the anterior abdominal wall hernia with prominent hydronephrosis present bilaterally with hydroureter and obstructing etiology however not identified of note this was present previously and appears increased from previous imaging and there is a diffusely thickened urinary bladder wall. Patient was seen and evaluated briefly by urology and is having no difficulties with urination and reports this is chronic since 2020 and has also been instructed to follow-up outpatient for cystoscopy. Patient was started on Antibiotics in the form of Zosyn and pain management with IV hydration admitted under surgery for diverticulitis. Patient is currently n.p.o. and infectious diseases also consulted. Labs revealed a white count of 16.5, hemoglobin 15.0, sodium was 141 with a potassium of 3.8, creatinine mildly elevated at 1.28, total bili is 1.4, urinalysis was negative, patient is positive for COVID. 06/06/2023 Patient is currently sitting in the chair. Awake alert and oriented x 3. Able to pass flatus. No bowel meant yet. No complaints of abdominal pain. No fever no chills. No headache or dizziness or lightheadedness. Patient remains on antibiotics in the form of Zosyn. Otherwise laboratory data showed WBC 12.4 hemoglobin 14.3 and platelets 420 Sodium improved to 159 from 164 yesterday BUN 15.9 and creatinine 1.6. Patient is tolerating oral diet. IV fluids on hold. Nephrology neurology is on board. 06/07/2023 Patient is resting in the bed. Awake alert and oriented x 3. No complaints of abdominal pain. Patient did have a small bowel movement today. Otherwise afebrile. Continued on IV antibiotics, Zosyn. Sodium level improved to 147. Patient is tolerating oral diet. Otherwise BUN 10.6 and creatinine 1.7. Laboratory data showed WBC 12.7 hemoglobin 15.3 and platelets 458. Patient denied any cough or sputum production. Denies chest pain or shortness of breath. 06/08/2023 Patient is seen in follow-up today with multiple medical consultations following including nephrology, general surgery, infectious disease, neurology. Patient is continued on antibiotics in the form of Zosyn with infectious disease following. Blood cultures remain negative. Patient continues on clear liquids for now and repeat CT abdomen done this morning shows persistent dilated small bowel's with improved edema of the small bowel mesentery with more distal loops appear to have normalized with persistent umbilical hernia with a segment of large bowel and mild stranding within the hernia that could reflect a degree of strangulation, strandy attenuation persists adjacent to the sigmoid colon which could reflect diverticulitis and anteriorly there is a fluid collection measuring 5 cm and ascites or abscess is not excluded, persistent severe hydronephrosis with urinary bladder wall thickening persists. Patient is voiding with no difficulties and was evaluated by urology recommending outpatient follow-up. Sodium level is improved at 145 today, creatinine is 1.6 and potassium is 3.8. White count also trending down at 10.82 and patient is afebrile. Encouraged increase activity as tolerated. 06/09/2023 Patient is seen in follow-up currently continued on full liquid diet with general surgery following. Infectious disease following as well and maintained on antibiotics. Patient having low-grade temps of 99.0, 99.3 with no reports of chest pain or shortness of breath. Patient denies any abdominal discomfort and reports urinating with no difficulties. Patient has not had a bowel movement in the last 2 days. Nephrology following today and kidney functions with a sodium of 146, potassium is 3.4, creatinine slightly improved at 1.34. Will replace potassium per protocol and follow-up on repeat labs. 06/10/2023 Patient is seen in follow-up this morning continues on a full liquid diet with no immediate plans of surgical intervention at this time. Plan is for repeat CT abdomen to assess the fluid collection and patient is continued on antibiotics with infectious disease following as well. White count is trending down and patient has been afebrile this morning. Patient tolerating diet and reports to having a bowel movement. Patient is urinating with no difficulties. Repeat labs ordered for a.m. 06/11/2023 Patient is seen and evaluated in follow-up today maintained on IV antibiotics in the form of Zosyn with infectious disease following. Blood cultures remain negative and patient's white count is trending down and currently 11.32. Patient is afebrile and general surgery is following as well maintained on full liquid diet reports he is tolerating with no abdominal pain and patient has had bowel movements. Plan is for repeat CT abdomen today to assess the fluid collection area which is pending at this time. Patient denies chest pain or shortness of breath. Patient has been mostly lying in the bed and encouraged increased activity as tolerated. Review of systems: Constitutional: No reports of fatigue, fever, or chills Cardiovascular: No reports of chest pain or palpitations Respiratory: No reports of shortness of breath or cough GI: No reports of nausea, vomiting, or diarrhea, reports having bowel movements : No reports of dysuria or retention Neurovascular: reports of generalized weakness All medications have been reviewed PHYSICAL EXAMINATION: GENERAL: The patient is alert and oriented x3. Well developed, well nourished. Morbidly obese HEENT: Pupils are round and equally reacting to light. EOMI. No scleral icterus. No conjunctival pallor. Normocephalic, atraumatic. No pharyngeal erythema. No thyromegaly. CARDIOVASCULAR: S1 and S2 muffled PULMONARY: Chest is clear to auscultation, no wheezing or crackles. ABDOMEN: Soft, obese nontender, nondistended, normoactive bowel sounds. No palpable organomegaly. MUSCULOSKELETAL: No joint swelling or deformity. EXTREMITIES: No cyanosis, clubbing, or pedal edema. NEUROLOGICAL: Gross neurological examination did not reveal any focal deficits. SKIN: No rashes. Assessment: Abdominal pain with fevers, secondary to acute diverticulitis as noted on CT with microperforation and fluid collection and possible bowel obstruction versus ileus Nonoliguric acute kidney injury likely vasomotor nephropathy on possible CKD due to chronic bilateral hydronephrosis. Hypernatremia due to dehydration volume depletion. Improving Morbid obesity with a body mass index of 46.1 Bilateral hydronephrosis as noted on CT, evaluated by urology recommending outpatient cystoscopy Acute COVID-19 infection Leukocytosis secondary to assessment #1, trending down at 11 today Daily marijuana use including vaping Noncompliance to medical care, has not been seen by a primary care provider in years DVT prophylaxis GI prophylaxis Full code Plan: Patient is continued on antibiotics and admitted to general surgery with infectious disease following for acute diverticulitis with microperforation with fluid collection and possible bowel obstruction versus ileus. Patient is reporting having bowel movements. Plan is for repeat CT abdomen today and report is pending. Surgery to review and discuss further if surgical intervention is required Patient was seen and evaluated by urology with concerns of bilateral hydronephrosis noted on CT and patient denies having any pain or difficulty with urination and reports was told of this years ago about stricture although having no difficulties. Urology recommending outpatient follow-up with cystoscopy Patient is continued on full liquids per surgery with no plans of immediate surgical intervention and monitoring currently Nephrology following for WAYNE likely dehydration and reduced oral intake. Repeat labs ordered for a.m. and recommend replacement per protocol. Potassium was replaced and is currently 4.4 today. Magnesium 1.8 and will give 1 g of magnesium We will continue to follow with general surgery and make further recomme ndations. Thank you kindly for this consultation. The impression and plan of care has been dictated by Jayashree Leyva, Nurse Practitioner as directed. Dr. Santos MD I have performed a history and examination and MDM of this patient, discussed the same with the dictator, and agree with the dictator's assessment and plan as written ,documented as a scribe. Based on total visit time, I have performed more than 50% of the visit. Objective - Vital Signs Vital signs: Vital Signs Temp 97.9 F 06/11/23 07:53 Pulse 68 06/11/23 07:53 Resp 18 06/11/23 07:53 BP 108/72 06/11/23 07:53 Pulse Ox 97 06/11/23 07:53 FiO2 Intake & Output 06/10/23 06/11/23 06/11/23 18:59 06:59 18:59 Intake Total 100 100 Balance 100 100 Weight 154.221 kg Intake: Intake, IV Titration 100 100 Amount Piperacillin-Tazobactam 3 100 100 .375 gm In Sodium Chloride 0.9% 100 ml @ 25 mls/hr IVPB Q8HR [facility] Rx# :[id number] Other: # Voids 5 5 # Bowel Movements 3 - Labs CBC & Chem 7: 06/11/23 06:39 06/11/23 06:39 Labs: Abnormal Lab Results - Last 24 Hours (Table) 06/11/23 06/11/23 Range/Units 06:39 06:39 WBC 11.32 H (4.50-10.00) X 10*3/uL MCH 26.1 L (27.0-32.0) pg MCHC 30.6 L (32.0-37.0) g/dL RDW 14.8 H (11.5-14.5) % Immature Gran # 0.18 H (0.00-0.04) X 10*3/uL Neutrophils # 7.83 H (1.80-7.70) X 10*3/uL Eosinophils # 0.40 H (0.04-0.35) X 10*3/uL BUN 5.8 L (9.0-27.0) mg/dL BUN/Creatinine Ratio 4.14 L (12.00-20.00) Ratio
[2023-06-11] MEDS: MAGNESIUM SULFATE-D5W PMX 1 GM in DEXTROSE/WATER 1 100ML.BAG IVPB ONE (14:21)
--- NOTE | 2023-06-11 17:30 | P.PN ---
Subjective Progress Note Date: 06/11/23 CHIEF COMPLAINT: Perforation of the sigmoid colon HISTORY OF PRESENT ILLNESS: Patient reports pain continues to improve. He did have a liquidy/formed stool. Denies any nausea or vomiting. Tolerating full liquids. Afebrile. Hemoglobin slightly down from 12-11.3. Pelvis CT is limited of bowel and prior fluid collection. There is partial visualized loops of bowel with fluid on the left lower quadrant previously appears to represent organizing fluid collection which may still be present. Right lower quadrant anterior abdominal wall hernia containing loops of colon similar to prior. Remains inflammation changes around the sigmoid colon. PHYSICAL EXAM: VITAL SIGNS: Reviewed. GENERAL: Well-developed in no acute distress. ABDOMEN: Soft. Obese with large pannus, partially reducible umbilical hernia. Skin of umbilical hernia slightly darkened. tender at the umbilicus. Nontender NEUROLOGIC: Alert and oriented. Cranial nerves II through XII grossly intact. ASSESSMENT: 1. Perforated sigmoid diverticulitis now with fluid collection. Secondary small bowel obstruction or ileus 2. Bilateral hydronephrosis with probable incomplete bladder emptying. Patient seen by urology. Plans for outpatient cystoscopy 3. COVID-positive PLAN: -Further recommendations forthcoming per surgeon -Continue to monitor -Continue full liquid diet -Encourage patient to ambulate -Continue antibiotics per ID -Continue pain management -GI prophylaxis Pepcid and DVT prophylaxis subcu heparin Physician Automation Controls Expert note has been reviewed by physician. Signing provider agrees with the documented findings, assessment, and plan of care. I have personally seen and examined the patient, reviewed the PAYABLE PROCESSOR /PAs history, exam and MDM and agree with the assessment and plan as written. Based on total visit time, I have performed more than 50% of the visit. As above: Patient doing well today. Still no complaints. CAT scan reviewed with radiology. Fluid collection less noticeable and certainly not organized into an abscess at this time. The foci of air posterior to the loop of sigmoid colon completely resolved. Degree of inflammation slightly improved. Patient still without complaints of nausea or bloating. Films still show proximal small bowel dilation. Options discussed. Still trying to avoid surgery if possible. Begin soft diet. Plan PICC line tomorrow for probable discharge on IV anti biotics. Objective - Vital Signs Vital signs: Vital Signs Temp 98.1 F 06/11/23 14:00 Pulse 76 06/11/23 15:48 Resp 16 06/11/23 15:48 BP 128/85 06/11/23 14:00 Pulse Ox 98 06/11/23 14:00 FiO2 Intake & Output 06/10/23 06/11/23 06/11/23 18:59 06:59 18:59 Intake Total 100 340 Balance 100 340 Weight 154.221 kg Intake: Intake, IV Titration 100 100 Amount Piperacillin-Tazobactam 3 100 100 .375 gm In Sodium Chloride 0.9% 100 ml @ 25 mls/hr IVPB Q8HR [facility] Rx# :[id number] Oral 240 Other: Voiding Method Toilet # Voids 5 5 # Bowel Movements 3 - Labs CBC & Chem 7: 06/11/23 06:39 06/11/23 06:39 Labs: Abnormal Lab Results - Last 24 Hours (Table) 06/11/23 06/11/23 Range/Units 06:39 06:39 WBC 11.32 H (4.50-10.00) X 10*3/uL MCH 26.1 L (27.0-32.0) pg MCHC 30.6 L (32.0-37.0) g/dL RDW 14.8 H (11.5-14.5) % Immature Gran # 0.18 H (0.00-0.04) X 10*3/uL Neutrophils # 7.83 H (1.80-7.70) X 10*3/uL Eosinophils # 0.40 H (0.04-0.35) X 10*3/uL BUN 5.8 L (9.0-27.0) mg/dL BUN/Creatinine Ratio 4.14 L (12.00-20.00) Ratio
[2023-06-12 08:29] VITALS: PULSE 66
[2023-06-12 08:37] LABS: Basophils # (A) 0.06 X 10*3/uL (0.00-0.10); Basophils % (A) 0.6 %; Eosinophils # (A) 0.33 X 10*3/uL (0.04-0.35); Eosinophils % (A) 3.3 %; HCT 45.4 % (39.6-50.0); HGB 14.4 g/dL (13.0-17.0); Lymphocytes % (A) 24.1 %; MCH 26.1 pg (27.0-32.0); MCHC 31.7 g/dL (32.0-37.0); MCV 82.4 FL (80.0-97.0); Mean Platelet Volume 10.6 FL (9.5-12.2); NRBC Per 100 WBC 0 X 10*3/uL (0.00-0.01); Neutrophils # (A) 6.39 X 10*3/uL (1.80-7.70); Neutrophils % (A) 64.3 %; Platelet Count 375 X 10*3/uL (140-440); RBC 5.51 X 10*6/uL (4.40-5.60); RDW 14.7 % (11.5-14.5); WBC 9.95 X 10*3/uL (4.50-10.00)
[2023-06-12 09:34] LABS: INR 1.07 sec (0.93-1.11); Prothrombin Time 11.5 sec (9.9-11.9)
[2023-06-12] MEDS ORDERED: LIDOCAINE 1% INJ 10MG/ML (20 ML MDV) ONE (10:28)
[2023-06-12] MEDS: LIDOCAINE 1% INJ 10MG/ML (20 ML MDV) SQ ONE (10:48)
--- NOTE | 2023-06-12 11:04 | P.PN ---
Subjective Patient is seen for follow-up for acute kidney injury. Renal function has improved slightly with creatinine down to 1.4. Tolerating oral intake. No significant complaints today. Objective - Vital Signs Vital signs: Vital Signs Temp 97.7 F 06/12/23 07:20 Pulse 66 06/12/23 07:20 Resp 17 06/12/23 08:31 BP 110/77 06/12/23 07:20 Pulse Ox 97 06/12/23 07:20 FiO2 Intake & Output 06/11/23 06/12/23 06/12/23 18:59 06:59 18:59 Intake Total 540 Balance 540 Weight 154.221 kg Intake: Intake, IV Titration 300 Amount Magnesium Sulfate-D5w Pmx 100 1 gm In Dextrose/Water 1 100ml.bag @ 100 mls/hr IVPB ONCE ONE Rx#: [id number] Piperacillin-Tazobactam 3 200 .375 gm In Sodium Chloride 0.9% 100 ml @ 25 mls/hr IVPB Q8HR [facility] Rx# :[id number] Oral 240 Other: Voiding Method Toilet Toilet # Voids 3 # Bowel Movements 1 - Exam Patient is awake, comfortable, no acute distress Examination of lower extremities shows no significant edema CONSULTING PRACTICE DIRECTOR exam grossly intact - Labs CBC & Chem 7: 06/12/23 06:06 06/11/23 06:39 Labs: Abnormal Lab Results - Last 24 Hours (Table) 06/11/23 06/11/23 06/12/23 Range/Units 06:39 06:39 06:06 WBC 11.32 H (4.50-10.00) X 10*3/uL MCH 26.1 L 26.1 L (27.0-32.0) pg MCHC 30.6 L 31.7 L (32.0-37.0) g/dL RDW 14.8 H 14.7 H (11.5-14.5) % Immature Gran # 0.18 H 0.17 H (0.00-0.04) X 10*3/uL Neutrophils # 7.83 H (1.80-7.70) X 10*3/uL Eosinophils # 0.40 H (0.04-0.35) X 10*3/uL BUN 5.8 L (9.0-27.0) mg/dL BUN/Creatinine Ratio 4.14 L (12.00-20.00) Ratio Assessment and Plan Assessment: 1. Non-oliguric WAYNE likely prerenal from dehydration, status post IVF, tolerting oral intake possible underlying obstructive as well given CT showing bilateral hydronpehrosis which is chronic. Creatinine decreased to 1.3, it is 1.4 today . 2. Hypernatremia due to NPO and dehydration. Improving 3. Acute Diverticulitis 4. Bilateral chronic hydronephrosis with distended thickened bladder. Plans for cystoscopy as outpatient Plan: Continue to encourage increase oral intake particularly fluids. Follow-up with urology as outpatient Follow-up as outpatient for CKD.
--- NOTE | 2023-06-12 11:25 | IR ---
EXAMINATION TYPE: IR cvc insert >=5 years DATE OF EXAM: 06/12/2023 COMPARISON: NONE HISTORY: Fluoroscopy time. Fluoroscopy was provided to the referring clinician.
--- NOTE | 2023-06-12 12:50 | P.OP ---
Date of Procedure: 06/12/23 Description of Procedure: Date of Procedure: Preoperative Diagnosis: Need for long-term IV antibiotic access. Postoperative Diagnosis: Same. Procedure(s) Performed: Ultrasound-guided cannulation [left] cephalic vein. Insertion of peripherally inserted central catheter under fluoroscopic guidance. Anesthesia: local (1% Xylocaine.) Surgeon: Sandra Estimated Blood Loss (ml): 5 IV fluids (ml): 0 Urine output (ml): 0 Pathology: none sent Condition: stable Disposition: no change Indications for Procedure: Patient is a []Patient will require long-term IV antibiotics as an outpatient patient is offered a PICC line to allow for intravenous administration of antibiotics. Description of Procedure: Patient was brought to the special procedure suite. The [left] upper extremity sterilely prepped and draped in usual manner. Ultrasound was utilized to identify the cephalic vein which was normally compressible free of visible thrombus. Permenant image was stored. 1% Xylocaine was utilized for local anesthesia tissues overlying the vein. Through this anesthetized area and with the aid of ultrasound a micropuncture needle was utilized to cannulate the vein. Once cannulated, Softip guidewire was advanced into the vein. The needle was withdrawn and a micropuncture sheath and dilator advanced over the guidewire. The guidewire was withdrawn and exchanged for the PICC guidewire and measured to the cavoatrial junction. The catheter was cut to size and advanced into the cavoatrial junction without resistance. The sheath was peeled away. Blood was easily withdrawn through the catheter and the catheter was then flushed with heparinized saline solution and secured to the skin. Patient tolerated procedure well and was returned to their room in satisfactory and stable condition.
--- NOTE | 2023-06-12 13:02 | P.PN ---
Subjective Progress Note Date: 06/12/23 Principal diagnosis: Reason for follow-up is diverticulitis with microperforation Patient is a 28-year-old male with no significant past medical history presenting to the ER increasing abdominal pain x 3 days, patient did have a CT of abdominal pelvis concerning for small bowel obstruction hydronephrosis and also evidence of diverticulitis with microperforation prompting this infectious disease consultation. On today's evaluation that is 06/12/2023, the patient is afebrile, patient is on room air, the patient denies chest pain shortness of breath or cough, patient denies nausea no vomiting abdominal pain has decreased in intensity mention did have a bowel movement. The patient white normalized to 9.95, creatinine is 1.4 Objective - Vital Signs Vital signs: Vital Signs Temp 97.7 F 06/12/23 07:20 Pulse 66 06/12/23 07:20 Resp 17 06/12/23 08:31 BP 110/77 06/12/23 07:20 Pulse Ox 97 06/12/23 07:20 FiO2 Intake & Output 06/11/23 06/12/23 06/12/23 18:59 06:59 18:59 Intake Total 540 Balance 540 Weight 154.221 kg Intake: Intake, IV Titration 300 Amount Magnesium Sulfate-D5w Pmx 100 1 gm In Dextrose/Water 1 100ml.bag @ 100 mls/hr IVPB ONCE ONE Rx#: [id number] Piperacillin-Tazobactam 3 200 .375 gm In Sodium Chloride 0.9% 100 ml @ 25 mls/hr IVPB Q8HR [facility] Rx# :[id number] Oral 240 Other: Voiding Method Toilet Toilet # Voids 3 # Bowel Movements 1 - Exam GENERAL DESCRIPTION: Middle-age male up in the chair in no distress RESPIRATORY SYSTEM: Unlabored breathing , decreased breath sounds at bases HEART: S1 S2 regular rate and rhythm , ABDOMEN: Soft , no tenderness EXTREMITIES: No edema feet - Labs CBC & Chem 7: 06/12/23 06:06 06/11/23 06:39 Labs: Abnormal Lab Results - Last 24 Hours (Table) 06/12/23 Range/Units 06:06 MCH 26.1 L (27.0-32.0) pg MCHC 31.7 L (32.0-37.0) g/dL RDW 14.7 H (11.5-14.5) % Immature Gran # 0.17 H (0.00-0.04) X 10*3/uL Assessment and Plan (1) Sepsis Current Visit: Yes Status: Acute Code(s): A41.9 - SEPSIS, UNSPECIFIED ORGANISM SNOMED Code(s): 48431797 (2) Perforation of sigmoid colon due to diverticulitis Current Visit: Yes Status: Acute Code(s): K57.20 - DVTRCLI OF LG INT W PERFORATION AND ABSCESS W/O BLEEDING SNOMED Code(s): 5535645158908933 (3) COVID-19 Current Visit: Yes Status: Acute Code(s): U07.1 - COVID-19 SNOMED Code(s): 915642850 Plan: 1patient presented to hospital with abdominal pain and fever and this patient has been diagnosed with a small bowel obstruction in addition to evidence of sigmoid diverticulitis with microperforation but did not mention any zohaib abscess we will need to cover for enteric gram-negative both anaerobes and anaerobes 2patient did tested positive for COVID-19 currently do not have significant respiratory symptoms or hypoxemia so no need for steroids or remdesivir 3patient did have resolution of his fever and his white count has normalized patient considered to be high risk for any surgical intervention as per discussion with the surgeon PICC line has been placed with the plan for a course of IV antibiotic therapy x [address] abdominal pelvis in 2 weeks, and a close outpatient follow-up Dictation was produced using [employer] dictation software. please excuse any gram matical, word or spelling errors.
--- NOTE | 2023-06-12 13:26 | P.DS ---
Providers Date of admission: 06/04/23 15:50 Expected date of discharge: 06/12/23 Attending physician: Mehul Ghotra Consults: 06/04/23 15:39 Consult Physician Routine Consulting Provider: Michael Rodriguez Consult Reason/Comments: hydroureter and hydronephrosis Do you want consulting provider notified?: Already Contacted 06/04/23 15:49 Consult Physician Routine Consulting Provider: Dang Graham Consult Reason/Comments: medicine consult Do you want consulting provider notified?: Yes 06/04/23 17:29 Consult Physician Routine Consulting Provider: René Sánchez Consult Reason/Comments: Diverticulitis with microperforation Do you want consulting provider notified?: Yes 06/05/23 16:45 Consult Physician Urgent Consulting Provider: Etienne Monterroso Consult Reason/Comments: hypernatremia, paola Do you want consulting provider notified?: Yes Primary care physician: Katiuska Holley [facility] Course: Discharge diagnosis 1. Perforated sigmoid diverticulitis with fluid collection and secondary small bowel obstruction or ileus 2. Bilateral hydronephrosis with probable incomplete bladder emptying. Patient seen by urology. Plans for outpatient cystoscopy 3. COVID-positive 4. Partially reducible umbilical hernia Hospital course This is a 28-year-old obese male who presented with discomfort at the umbilical hernia site. He had a CT scan abdomen pelvis. The patient has a loop of transverse colon in the hernia that appears nonobstructive. There is significant inflammatory changes in the left lower abdomen. On careful review there are 2 small foci of air adjacent to the sigmoid colon likely on the basis of microperforation from diverticulitis. There is significant inflammation involving the small bowel loops anterior to the sigmoid colon in that area as well. There appears to be proximal small bowel dilation and ileus or partial obstruction at that site is suspected. Patient was treated for perforated sigmoid diverticulitis with a secondary small bowel obstruction vs ileus. He did develop a fluid collection noted in the left lower quadrant on CT. repeat CT fluid collection was less noticeable and not organized into an abscess at that time. Patient denies any abdominal pain. He is having bowel movements. He is tolerating diet. White count has normalized. He is afebrile. He will be discharged home with IV Zosyn for 2 weeks per ID recommendations. Patient is stable for discharge. Please refer to chart for any further details. Physician Principal Clerk Typist note has been reviewed by physician. Signing provider agrees with the documented findings, assessment, and plan of care. Patient Condition at Discharge: Stable Plan - Discharge Summary Discharge Rx Participant: No New Discharge Prescriptions: No Action No Known Home Medications Discharge Medication List No Known Home Medications 06/04/23 [History] Follow up Appointment(s)/Referral(s): Mehul Ghotra MD [Medical Doctor] - 1 Week [facility], [NON-STAFF] - 1 Week ([facility] will call you to arrange a visit) [facility]fusion [NON-STAFF] - 1 Week ([facility] infusion will provide your IVV abx) Katiuska Holley MD [Primary Care Provider] - 1-2 days René Sánchez MD [STAFF PHYSICIAN] - 1 Week Michael Rodriguez MD [STAFF PHYSICIAN] - 2 Weeks Patient Instructions/Handouts: Diverticulitis (DC), Diverticulitis Diet (DC), Hydronephrosis (DC), Perforated Bowel (DC) Activity/Diet/Wound Care/Special Instructions: Continue low fiber diet Discharge antibiotics with Zosyn per infectious disease Discharge Disposition: HOME WITH HOME HEALTH SERVICES
[2023-06-12 15:37] VITALS: BP 100/66; RESP 18; TEMP 98.3
--- NOTE | 2023-06-12 18:28 | P.PN ---
Subjective Progress Note Date: 06/12/23 This is a 28-year-old male who presented to the emergency department with fevers and abdominal pain. Patient reports that the pain had been progressively becoming more worse over the last few days and he does have a noted umbilical hernia history and the site was painful and patient had associated fevers. Patient with no significant past medical history and reports has not followed up with a primary care provider in years although Dr. Holley was his last primary care provider. Patient reports he does use marijuana daily including vaping and denies smoking and denies alcohol use. Patient underwent an abdominal CT that was noted to have some inflammatory changes that are also adjacent to the si gmoid colon in the left lower quadrant with a couple of small loculated tiny amount of free air that may be present in that region with acute diverticulitis with small perforation that could be considered. Also noted to have a small bowel obstruction from loops or bowel within the anterior abdominal wall hernia with prominent hydronephrosis present bilaterally with hydroureter and obstructing etiology however not identified of note this was present previously and appears increased from previous imaging and there is a diffusely thickened urinary bladder wall. Patient was seen and evaluated briefly by urology and is having no difficulties with urination and reports this is chronic since 2020 and has also been instructed to follow-up outpatient for cystoscopy. Patient was started on Antibiotics in the form of Zosyn and pain management with IV hydration admitted under surgery for diverticulitis. Patient is currently n.p.o. and infectious diseases also consulted. Labs revealed a white count of 16.5, hemoglobin 15.0, sodium was 141 with a potassium of 3.8, creatinine mildly elevated at 1.28, total bili is 1.4, urinalysis was negative, patient is positive for COVID. 06/06/2023 Patient is currently sitting in the chair. Awake alert and oriented x 3. Able to pass flatus. No bowel meant yet. No complaints of abdominal pain. No fever no chills. No headache or dizziness or lightheadedness. Patient remains on antibiotics in the form of Zosyn. Otherwise laboratory data showed WBC 12.4 hemoglobin 14.3 and platelets 420 Sodium improved to 159 from 164 yesterday BUN 15.9 and creatinine 1.6. Patient is tolerating oral diet. IV fluids on hold. Nephrology neurology is on board. 06/07/2023 Patient is resting in the bed. Awake alert and oriented x 3. No complaints of abdominal pain. Patient did have a small bowel movement today. Otherwise afebrile. Continued on IV antibiotics, Zosyn. Sodium level improved to 147. Patient is tolerating oral diet. Otherwise BUN 10.6 and creatinine 1.7. Laboratory data showed WBC 12.7 hemoglobin 15.3 and platelets 458. Patient denied any cough or sputum production. Denies chest pain or shortness of breath. 06/08/2023 Patient is seen in follow-up today with multiple medical consultations following including nephrology, general surgery, infectious disease, neurology. Patient is continued on antibiotics in the form of Zosyn with infectious disease following. Blood cultures remain negative. Patient continues on clear liquids for now and repeat CT abdomen done this morning shows persistent dilated small bowel's with improved edema of the small bowel mesentery with more distal loops appear to have normalized with persistent umbilical hernia with a segment of large bowel and mild stranding within the hernia that could reflect a degree of strangulation, strandy attenuation persists adjacent to the sigmoid colon which could reflect diverticulitis and anteriorly there is a fluid collection measuring 5 cm and ascites or abscess is not excluded, persistent severe hydronephrosis with urinary bladder wall thickening persists. Patient is voiding with no difficulties and was evaluated by urology recommending outpatient follow-up. Sodium level is improved at 145 today, creatinine is 1.6 and potassium is 3.8. White count also trending down at 10.82 and patient is afebrile. Encouraged increase activity as tolerated. 06/09/2023 Patient is seen in follow-up currently continued on full liquid diet with general surgery following. Infectious disease following as well and maintained on antibiotics. Patient having low-grade temps of 99.0, 99.3 with no reports of chest pain or shortness of breath. Patient denies any abdominal discomfort and reports urinating with no difficulties. Patient has not had a bowel movement in the last 2 days. Nephrology following today and kidney functions with a sodium of 146, potassium is 3.4, creatinine slightly improved at 1.34. Will replace potassium per protocol and follow-up on repeat labs. 06/10/2023 Patient is seen in follow-up this morning continues on a full liquid diet with no immediate plans of surgical intervention at this time. Plan is for repeat CT abdomen to assess the fluid collection and patient is continued on antibiotics with infectious disease following as well. White count is trending down and patient has been afebrile this morning. Patient tolerating diet and reports to having a bowel movement. Patient is urinating with no difficulties. Repeat labs ordered for a.m. 06/11/2023 Patient is seen and evaluated in follow-up today maintained on IV antibiotics in the form of Zosyn with infectious disease following. Blood cultures remain negative and patient's white count is trending down and currently 11.32. Patient is afebrile and general surgery is following as well maintained on full liquid diet reports he is tolerating with no abdominal pain and patient has had bowel movements. Plan is for repeat CT abdomen today to assess the fluid collection area which is pending at this time. Patient denies chest pain or shortness of breath. Patient has been mostly lying in the bed and encouraged increased activity as tolerated. 06/12/2023 Patient is seen in follow-up today with multiple medical consultations following maintained on antibiotics with infectious disease following as well. Repeat CT does not show any worsening and no abscess forming currently of the abdominal fluid noted. Plan is for PICC line placement and IV antibiotics in the outpatient setting. Patient is having bowel movements and tolerating full liquid diet. White count has normalized and patient remains afebrile. Kidney functions improving recommending outpatient follow-up with nephrology. Repeat labs in the next few days. Patient has been up and walking around with no difficulties. Plan is for possible discharge home today with close outpatient follow-up. Review of systems: Constitutional: No reports of fatigue, fever, or chills Cardiovascular: No reports of chest pain or palpitations Respiratory: No reports of shortness of breath or cough GI: No reports of nausea, vomiting, or diarrhea, reports having bowel movements : No reports of dysuria or retention Neurovascular: No reports of generalized weakness All medications have been reviewed PHYSICAL EXAMINATION: GENERAL: The patient is alert and oriented x3. Well developed, well nourished. Morbidly obese HEENT: Pupils are round and equally reacting to light. EOMI. No scleral icterus. No conjunctival pallor. Normocephalic, atraumatic. No pharyngeal erythema. No th yromegaly. CARDIOVASCULAR: S1 and S2 muffled PULMONARY: Chest is clear to auscultation, no wheezing or crackles. ABDOMEN: Soft, obese nontender, nondistended, normoactive bowel sounds. No palpable organomegaly. MUSCULOSKELETAL: No joint swelling or deformity. EXTREMITIES: No cyanosis, clubbing, or pedal edema. NEUROLOGICAL: Gross neurological examination did not reveal any focal deficits. SKIN: No rashes. Assessment: Abdominal pain with fevers, secondary to acute diverticulitis as noted on CT with microperforation and fluid collection and possible bowel obstruction versus ileus Nonoliguric acute kidney injury likely vasomotor nephropathy on possible CKD due to chronic bilateral hydronephrosis. Hypernatremia due to dehydration volume depletion. Improving Morbid obesity with a body mass index of 46.1 Bilateral hydronephrosis as noted on CT, evaluated by urology recommending outpatient cystoscopy Acute COVID-19 infection Leukocytosis secondary to assessment #1, trending down at 11 today Daily marijuana use including vaping Noncompliance to medical care, has not been seen by a primary care provider in years DVT prophylaxis GI prophylaxis Full code Plan: Patient is continued on antibiotics and admitted to general surgery with infectious disease following for acute diverticulitis with microperforation with fluid collection and possible bowel obstruction versus ileus. Patient is reporting having bowel movements. Patient underwent repeat CT abdomen with no plans for surgical intervention at this time and the fluid collection area does not appear to be forming into an abscess. Plan is for home with IV antibiotics and a PICC line with close outpatient follow-up with infectious disease and general surgery Patient was seen and evaluated by urology with concerns of bilateral hydronephrosis noted on CT and patient denies having any pain or difficulty with urination and reports was told of this years ago about stricture although having no difficulties. Urology recommending outpatient follow-up with cystoscopy Patient is continued on full liquids per surgery and will continue and have close outpatient follow-up with surgery in 1 week Nephrology following for WAYNE likely dehydration and reduced oral intake. Kidney functions currently stable recommend repeat labs in the next 2 to 3 days outpatient We will continue to follow with general surgery and make further recommendations. Thank you kindly for this consultation. Plan is for discharge home today with IV antibiotic therapy and close outpatient follow-up. Patient is medically stable and has been discussed with and instructed to follow-up and reestablish with primary care provider Dr. Holley. The impression and plan of care has been dictated by Jayashree Leyva, Nurse Practitioner as directed. Dr. Santos MD I have performed a history and examination and MDM of this patient, discussed the same with the dictator, and agree with the dictator's assessment and plan as written ,documented as a scribe. Based on total visit time, I have performed more than 50% of the visit. Objective - Vital Signs Vital signs: Vital Signs Temp 97.7 F 06/12/23 07:20 Pulse 66 06/12/23 07:20 Resp 17 06/12/23 08:31 BP 110/77 06/12/23 07:20 Pulse Ox 97 06/12/23 07:20 FiO2 Intake & Output 06/11/23 06/12/23 06/12/23 18:59 06:59 18:59 Intake Total 540 Balance 540 Weight 154.221 kg Intake: Intake, IV Titration 300 Amount Magnesium Sulfate-D5w Pmx 100 1 gm In Dextrose/Water 1 100ml.bag @ 100 mls/hr IVPB ONCE ONE Rx#: [id number] Piperacillin-Tazobactam 3 200 .375 gm In Sodium Chloride 0.9% 100 ml @ 25 mls/hr IVPB Q8HR KATARINA Rx# :[id number] Oral 240 Other: Voiding Method Toilet Toilet # Voids 3 # Bowel Movements 1 - Labs CBC & Chem 7: 06/12/23 06:06 06/11/23 06:39 Labs: Abnormal Lab Results - Last 24 Hours (Table) 06/11/23 06/11/23 06/12/23 Range/Units 06:39 06:39 06:06 WBC 11.32 H (4.50-10.00) X 10*3/uL MCH 26.1 L 26.1 L (27.0-32.0) pg MCHC 30.6 L 31.7 L (32.0-37.0) g/dL RDW 14.8 H 14.7 H (11.5-14.5) % Immature Gran # 0.18 H 0.17 H (0.00-0.04) X 10*3/uL Neutrophils # 7.83 H (1.80-7.70) X 10*3/uL Eosinophils # 0.40 H (0.04-0.35) X 10*3/uL BUN 5.8 L (9.0-27.0) mg/dL BUN/Creatinine Ratio 4.14 L (12.00-20.00) Ratio
== END 2023-06-12 16:48 | disposition home health service (06) | DRG 871 ==
LOC: EC 12:50 → 4SSUR 15:50
PROVIDERS: ADMIT Surgery; ATTEND Surgery
PROC: 05HY33Z Insertion of Infusion Device into Upper Vein, Percutaneous Approach (ICD-10-PCS; principal; 2023-06-12 09:30)
DX: A41.9 Sepsis, unspecified organism (principal); N17.0 Acute kidney failure with tubular necrosis; U07.1 COVID-19; K56.609 Unspecified intestinal obstruction, unspecified as to partial versus complete obstruction; E87.0 Hyperosmolality and hypernatremia; K57.20 Diverticulitis of large intestine with perforation and abscess without bleeding; N13.30 Unspecified hydronephrosis; K42.0 Umbilical hernia with obstruction, without gangrene; N13.4 Hydroureter; Z68.42 Body mass index [BMI] 45.0-49.9, adult; E66.01 Morbid (severe) obesity due to excess calories; Z28.310 Unvaccinated for COVID-19; K43.9 Ventral hernia without obstruction or gangrene; N39.44 Nocturnal enuresis; R35.0 Frequency of micturition; E86.0 Dehydration; R33.8 Other retention of urine; F12.90 Cannabis use, unspecified, uncomplicated; F17.290 Nicotine dependence, other tobacco product, uncomplicated; Z91.199 Patient's noncompliance with other medical treatment and regimen due to unspecified reason; Z71.3 Dietary counseling and surveillance
CPT/HCPCS: 36415; 36573; 72192; 74019; 74177; 80048; 80053; 81003; 83605; 83690; 83735; 85025; 85610; 85730; 87040; 87636; 96361; 96374; 99285

== ENCOUNTER → 2023-06-29 | Outpatient (CLI) | payer BC ==
--- NOTE | 2023-06-29 13:36 | CT ---
EXAMINATION TYPE: CT abdomen pelvis w con DATE OF EXAM: 06/29/2023 COMPARISON: 06/08/2023 HISTORY: 28-year-old male K57.80, diverticulitis TECHNIQUE: Contiguous axial scanning of the abdomen and pelvis following administration of 100 ml Iso lusi 300 IV contrast. Delayed images through the kidneys and coronal/sagittal reconstructions perform ed. CT DLP: 2745.8 mGycm Automated exposure control for dose reduction was used. FINDINGS: Heart normal size without pericardial effusion. Lung bases clear without pleural effusion. Liver enlarged at 28.1 cm. Suspect underlying fatty infiltration. Portal venous system is patent. Gallbladder, adrenal glands, spleen with hilar splenule, and pancreas within normal limits. No dilated small bowel, free fluid, or free air. A few scattered retroperitoneal nodes are prominent measuring up to 1.3 cm relatively unchanged. There is a right mid abdominal ventral wall hernia containing nonobstructed hepatic flexure of the co felipe. Hernia sac measures 10.4 cm wide, unchanged. There is ongoing severe bilateral hydronephrosis and hydroureter along with severe distention of the urinary bladder up to nearly 25 cm craniocaudal for which urology evaluation is advised. Scattered mild colonic stool. Normal appendix visualized. Left-sided colonic diverticulosis, particul angus in the sigmoid colon. Minimal fat stranding remains along the proximal sigmoid colon, axial imag e 73 but the other extensive inflammatory changes and tracking fluid have largely resolved. Bones: Mild facet arthropathy lower lumbar spine. IMPRESSION: 1. LEFT-SIDED COLONIC DIVERTICULOSIS. MINIMAL FAT STRANDING REMAINS ALONG THE PROXIMAL SIGMOID COLON BUT THE EXTENSIVE INFLAMMATORY CHANGES SEEN PREVIOUSLY HAVE LARGELY RESOLVED. 2. ONGOING SEVERE BILATERAL HYDRONEPHROSIS AND HYDROURETER AND SEVERE DISTENTION OF THE BLADDER UP TO NEARLY 25 CM CRANIOCAUDAL. RECOMMEND UROLOGY EVALUATION. 3. REDEMONSTRATED VENTRAL ABDOMINAL WALL HERNIA RIGHT MID ABDOMEN MEASURING 10.4 CM WIDE AND CONTAINI NG NONOBSTRUCTED HEPATIC FLEXURE OF THE COLON.
== END | disposition home or self-care (01) ==
LOC: RADCTMAIN 10:46
PROVIDERS: ATTEND Surgery
DX: K57.30 Diverticulosis of large intestine without perforation or abscess without bleeding (principal); K57.80 Diverticulitis of intestine, part unspecified, with perforation and abscess without bleeding; N13.30 Unspecified hydronephrosis; N32.89 Other specified disorders of bladder; K43.9 Ventral hernia without obstruction or gangrene
CPT/HCPCS: 74177; Q9967

== ENCOUNTER 2023-09-22 08:44 | Day surgery (SDC) | payer BC ==
[2023-09-16 12:45] VITALS: BMI 47.5
[~2023-09-22 08:44] MED LIST: LIDOCAINE 1% (10MG/ML) FOR IV START INTRADERMA PRN
[2023-09-22] MEDS: LACTATED RINGERS 1,000 ML IV SCH (09:50)
[2023-09-22] MEDS ORDERED: LIDOCAINE 1% INJ 10MG/ML (20 ML MDV) ONE (10:06)
[2023-09-22] MEDS ORDERED: PROPOFOL 10 MG/ML 20 ML VIAL IV ONE (10:06)
--- NOTE | 2023-09-22 10:09 | P.GSHP ---
History of Present Illness H&P Date: 09/22/23 Chief Complaint: Diverticulitis 28-year-old male here for colonoscopy. Patient with recent hospitalization for diverticular abscess. Doing better now. Recent CAT scans show improvement in his diverticulitis. Past Medical History Past Medical History: No Reported History Additional Past Medical History / Comment(s): Diverticulitis History of Any Multi-Drug Resistant Organisms: None Reported Past Surgical History: No Surgical Hx Reported Past Anesthesia/Blood Transfusion Reactions: No Reported Reaction Smoking Status: Former smoker - Past Family History Mother Family Medical History: No Reported History Medications and Allergies Home Medications Medication Instructions Recorded Confirmed Type No Known Home Medications 06/04/23 09/22/23 History Allergies Allergy/AdvReac Type Severity Reaction Status Date / Time No Known Allergies Allergy Verified 09/22/23 09:41 Surgical - Exam Vital Signs Temp Pulse Resp BP Pulse Ox 98.1 F 85 16 139/92 96 09/22/23 09:43 09/22/23 09:43 09/22/23 09:43 09/22/23 09:43 09/22/23 09:43 Physical exam: General: Well-developed, well-nourished HEENT: Normocephalic, sclerae nonicteric Abdomen: Nontender, nondistended, large umbilical hernia Extremities: No edema Neuro: Alert and oriented Assessment and Plan (1) Perforation of sigmoid colon due to diverticulitis Narrative/Plan: Will proceed with colonoscopy at this time. Current Visit: No Status: Acute Code(s): K57.20 - DVTRCLI OF LG INT W PERFORATION AND ABSCESS W/O BLEEDING SNOMED Code(s): 2091475442422868
--- NOTE | 2023-09-22 10:28 | P.PCN ---
Date of Procedure: 09/22/23 Procedure(s) Performed: PREOPERATIVE DIAGNOSIS: Diverticulitis POSTOPERATIVE DIAGNOSIS: Diverticulosis PROCEDURE: Colonoscopy to the transverse colon ANESTHESIA: MAC SURGEON: Mehul Ghotra M.D. SPECIMENS: None ENDOSCOPIC PROCEDURE: The patient was placed on the endoscopy table in the left decubitus position. The Olympus colonoscope was inserted into the anus and passed under direct visualization to the proximal colon. It was difficult to identify landmarks. I thought we were likely near the hepatic flexure. There was a very tight turn there that I was unable to navigate despite multiple attempts. Knowing the patient's previous CAT scans showing a loop of transverse colon into his large umbilical hernia I suspect that may be the scope was unable to pass the mid transverse colon. The scope was withdrawn from this point. No neoplastic inflammatory or polypoid lesions were noted throughout the transverse descending sigmoid or rectum. The patient had scattered left-sided diverticulosis however. There was 1 small area of mild inflammation noted which was likely the source of recent diverticulitis in the mid sigmoid colon. Digital rectal examination was normal. The patient was taken to the recovery room in stable condition per anesthesia guidelines. RECOMMENDATIONS: Resume diet. Monitor for recurrent symptoms of diverticulitis. Continue weight loss measures.
[2023-09-22 10:37] VITALS: TEMP 98.1
[2023-09-22 11:36] VITALS: BP 112/75; PULSE 66; RESP 20
== END 2023-09-22 10:59 | disposition home or self-care (01) ==
LOC: ORWHC2ENDO 08:44
PROVIDERS: ATTEND Surgery
DX: K57.30 Diverticulosis of large intestine without perforation or abscess without bleeding (principal); Z87.891 Personal history of nicotine dependence
CPT/HCPCS: 45378; J2001; J2704

== ENCOUNTER → 2023-11-12 | Outpatient (CLI) | payer BC ==
--- NOTE | 2023-11-12 21:07 | US ---
EXAMINATION TYPE: US kidneys/renal and bladder DATE OF EXAM: 11/12/2023 COMPARISON: CT 06/29/2023 CLINICAL INDICATION: Male, 28 years old with history of N13.30 HYDRONEPHROSIS; Patient denies any sig ns, symptoms, or relevant history EXAM MEASUREMENTS: Right Kidney: 12.3 x 7.1 x 8.5 cm Left Kidney: 16.7 x 9.4 x 9.0 cm Post Void urinary bladder Residual Volume: 190 mL. Urinary retention is present. Right Kidney: Marked Hydronephrosis Left Kidney: Marked Hydronephrosis Bladder: Thickened wall. Bilateral Jets seen: No Normal Post Void Residual: NO No nephrolithiasis is seen. No masses are identified. The urinary bladder is anechoic. IMPRESSION: 1. Marked bilateral hydronephrosis. 2. Significant urinary retention of 190 mL. 3. Urinary bladder wall thickening. Consider neurogenic bladder.
== END | disposition home or self-care (01) ==
LOC: RADUSWWP 16:18
PROVIDERS: ATTEND Urology
DX: N13.30 Unspecified hydronephrosis (principal); N28.1 Cyst of kidney, acquired
CPT/HCPCS: 76770

== ENCOUNTER → 2024-03-02 | Outpatient (CLI) | payer BC ==
--- NOTE | 2024-03-03 11:07 | MR ---
EXAMINATION TYPE: MR brain/lspine wo/w con DATE OF EXAM: 03/02/2024 9:16 AM COMPARISON: 06/29/2023. CLINICAL INDICATION: Male, 29 years old with history of N31.9 BLADDER DYSFUNCTION R55 NEAR SYNCOPE; P HH, Bladder control loss TECHNIQUE: Multi planar, multi sequence imaging was performed through the brain including: T1, T2, Inversion rec overy, susceptibility weighted imaging and gradient echo imaging and Diffusion weighted imaging. The patient was then given intravenous contrast and multi planar, T1 fat-saturation images were obtained. IV Contrast: 15 cc Gadavist Multi planar, multi sequence imaging was performed utilizing: T1-weighted, T2-weighted, and turbo inv ersion recovery imaging of the lumbar spine. IV Contrast: 15 cc Gadavist. (None if empty) FINDINGS: The garcia-white junctions, ventricular system, basal cisterns appear unremarkable. Diffusion-weighted imaging shows no evidence of restricted diffusion to suggest acute/subacute infarct. Intracranial ar terial flow voids are maintained. Midline structures show no abnormality. Scattered foci of high T2 s ignal intensity are seen within the periventricular white matter. The susceptibility weighted images do not reveal any evidence for micro-hemorrhage. After administration of gadolinium, no abnormal enha ncement is seen. The bone marrow signal is within normal limits. Paranasal sinuses and mastoid air cells: Mild paranasal sinus and T2 mucosal thickening. Visualized orbits: Orbital contents are intact. Alignment: The lumbar vertebral bodies have preserved heights and alignment. Cord: The conus medullaris and the distal spinal cord appear unremarkable with regards to their signa l intensity and morphology. Bones/Discs: Mild degeneration changes throughout the spine with osteophyte formation and facet joint arthropathy. Intervertebral disc signal is maintained. No abnormal bone postcontrast enhancement. T12-L1: No evidence of significant spinal canal stenosis or neural foraminal stenosis. L1-L2: No evidence of significant spinal canal stenosis or neural foraminal stenosis. L2-L3: No evidence of significant spinal canal stenosis or neural foraminal stenosis. L3-L4: No evidence of significant spinal canal stenosis or neural foraminal stenosis. L4-L5: No evidence of significant spinal canal stenosis. Facet joint arthropathy mild bilateral neura l foraminal stenosis. L5-S1: The disc is rounded posterior morphology without significant spinal canal stenosis. Facet join t arthropathy with mild to moderate bilateral neural foraminal stenosis. No significant spinal canal or neural foraminal stenosis in the remainder of the visualized levels. Other findings: Severe dilation of the bilateral renal collecting systems similar to CT 06/29/2023. IMPRESSION: 1. No definitive evidence of disc herniation or significant spinal canal stenosis. 2. No evidence of intracranial mass, acute/subacute infarct, or abnormal enhancement. 3. Minimal scattered nonspecific white matter changes, correlate for demyelination. No evidence for active demyelination. 4. Similar dilation of the renal collecting systems correlate for posterior urethral valves bilatera l obstruction suggested. [facility], , 03/03/2024 11:04 AM
== END | disposition home or self-care (01) ==
LOC: RADMRIMAIN 06:45
PROVIDERS: ATTEND Psychiatry & Neurology Neurology
DX: N31.9 Neuromuscular dysfunction of bladder, unspecified (principal); R90.82 White matter disease, unspecified; R55 Syncope and collapse; N28.89 Other specified disorders of kidney and ureter
CPT/HCPCS: 70553; 72158; A9585